=== PATIENT | male | born 1940 | race Caucasian/White ===

== ENCOUNTER 2020-07-20 15:13 | Inpatient (IN) | payer MEDICARE, OTHER ==
[2020-07-20] MEDS ORDERED: DEXAMETHASONE SOD PHOSPHATE 10 MG/ML 1 ML VIAL IV STA (15:40)
[2020-07-20 16:03] LABS: Basophils # (A) 0.1 k/uL (0-0.2); Basophils % (A) 1 %; Eosinophils % (A) 0 %; HCT 42.9 % (39.0-53.0); HGB 14.6 gm/dL (13.0-17.5); Lymphocytes # (A) 0.7 k/uL (1.0-4.8); Lymphocytes % (A) 7 %; MCH 31.6 pg (25.0-35.0); MCHC 34.2 g/dL (31.0-37.0); MCV 92.4 fL (80.0-100.0); Mean Platelet Volume 7.8; Monocytes # (A) 0.6 k/uL (0-1.0); Monocytes % (A) 5 %; Neutrophils # (A) 8.8 k/uL (1.3-7.7); Neutrophils % (A) 86 %; Platelet Count 278 k/uL (150-450); RBC 4.64 m/uL (4.30-5.90); RDW 12.6 % (11.5-15.5); WBC 10.2 k/uL (3.8-10.6)
[2020-07-20 16:09] LABS: VBG PH 7.52 (7.31-7.41)
[2020-07-20 16:11] LABS: Partial Thromboplastin Time 22.7 sec (22.0-30.0); Prothrombin Time 10.4 sec (9.0-12.0)
[2020-07-20 16:12] LABS: Albumin 3.7 g/dL (3.5-5.0); Calcium 8.9 mg/dL (8.4-10.2); Magnesium 2.1 mg/dL (1.6-2.3); Potassium 4.8 mmol/L (3.5-5.1); Total Bilirubin 1.5 mg/dL (0.2-1.3); Total Protein 7.1 g/dL (6.3-8.2)
--- NOTE | 2020-07-20 16:17 | XR ---
EXAMINATION TYPE: XR chest 1V portable DATE OF EXAM: 07/20/2020 COMPARISON: NONE HISTORY: Shortness of breath. TECHNIQUE: Single frontal view of the chest is obtained. FINDINGS: There is moderate bilateral opacities predominantly in the mid to lower lungs. No pleural effusion, or pneumothorax seen. The cardiac silhouette size is mildly enlarged. The osseous struct ures are intact. IMPRESSION: Bilateral infiltrates.
[2020-07-20] MEDS ORDERED: SODIUM CHLORIDE 0.9% 500 ML 500 ML IV ONE (16:26)
[2020-07-20] MEDS ORDERED: ENOXAPARIN 40 MG/0.4 ML SYRINGE SQ STA (16:40)
[2020-07-20] MEDS ORDERED: ASPIRIN 325 MG TAB PO STA (16:41)
[2020-07-20] MEDS ORDERED: HEPARIN SODIUM,PORCINE 5,000 UNIT/ML 1 ML VIAL IV ONE (16:41)
--- NOTE | 2020-07-20 16:56 | ED ---
General Adult HPI - General Chief complaint: Dizziness Stated complaint: Dizziness Time Seen by Provider: 07/20/20 15:31 Source: patient, family, RN notes reviewed, old records reviewed Mode of arrival: wheelchair Limitations: physical limitation - History of Present Illness Initial comments: 80-year-old male presenting with chief complaint of dizziness and lethargy. History is initially obtained from the patient's , he is able to answer questions but somewhat somnolent. He was found to be hypoxic in triage. Apparently for the past 5 days he's had dizziness and lightheadedness, generalized weakness. He had a follow-up visit with his primary care physician and had seen his field interviewer prescribed medicine for vertigo. He has reported some worsening dyspnea over the past 24 hours as well as dry cough. No reported fever. - Related Data Allergies Allergy/AdvReac Type Severity Reaction Status Date / Time No Known Allergies Allergy Verified 07/20/20 15:28 Review of Systems ROS Statement: Those systems with pertinent positive or pertinent negative responses have been documented in the HPI. ROS Other: All systems not noted in ROS Statement are negative. Past Medical History Past Medical History: Coronary Artery Disease (CAD), GERD/Reflux, Hyperlipidemia History of Any Multi-Drug Resistant Organisms: None Reported Past Surgical History: Cholecystectomy, Heart Catheterization With Stent Past Psychological History: No Psychological Hx Reported Smoking Status: Never smoker Past Alcohol Use History: None Reported Past Drug Use History: None Reported General Exam Limitations: physical limitation General appearance: lethargic, in distress Head exam: Present: atraumatic, normocephalic Eye exam: Present: normal appearance, PERRL ENT exam: Present: mucous membranes dry Neck exam: Present: normal inspection. Absent: tenderness, meningismus Respiratory exam: Present: respiratory distress, rales, rhonchi, decreased breath sounds Cardiovascular Exam: Present: regular rate, irregular rhythm GI/Abdominal exam: Present: soft. Absent: distended, tenderness, guarding, rebound Extremities exam: Present: normal capillary refill. Absent: pedal edema, calf tenderness Neurological exam: Present: alert, oriented X3, CN II-XII intact. Absent: motor sensory deficit Psychiatric exam: Present: normal affect, normal mood Skin exam: Present: warm, dry, intact, pallor. Absent: cyanosis, diaphoretic Course Vital Signs 07/20/20 15:20 Temperature 99.0 F Pulse Rate 72 Respiratory 24 Rate Blood Pressure 92/59 O2 Sat by Pulse 74 L Oximetry EKG Findings - EKG Comments: EKG Findings:: EKG: Atrial fibrillation, no ST segment elevation, rate of 87, QRS duration 80, QTC 421 Medical Decision Making - Medical Decision Making Initial presentation, patient is hypoxic, borderline hypotensive. He has a chest x-ray showed bilateral infiltrate. He is in atrial fibrillation without any previous history of atrial fibrillation. He has a normal CBC, mild lactic acidosis of 2.2, creatinine 2.2 with no known baseline. He has elevated troponin 0.28 I suspect this is related to hypoxia rather than acute infarction. He has been started on heparin. I discussed case with Dr. Bebo plasencia for pulmonology, recommends Decadron, Remdesivir. Patient has been admitted to Dr. Mcdowell who is aware of the patient Additional prognostic labs have been ordered these results are pending. Diagnosis: Covid 19, troponin elevation, bilateral pneumonia, hypoxia, acute kidney injury, new-onset A. fib. - Lab Data Result diagrams: 07/20/20 15:46 07/20/20 15:46 Lab Results 07/20/20 07/20/20 07/20/20 Range/Units 15:46 15:46 15:46 WBC 10.2 (3.8-10.6) k/uL RBC 4.64 (4.30-5.90) m/uL Hgb 14.6 (13.0-17.5) gm/dL Hct 42.9 (39.0-53.0) % MCV 92.4 (80.0-100.0) fL MCH 31.6 (25.0-35.0) pg MCHC 34.2 (31.0-37.0) g/dL RDW 12.6 (11.5-15.5) % Plt Count 278 (150-450) k/uL MPV 7.8 Neutrophils % 86 % Lymphocytes % 7 % Monocytes % 5 % Eosinophils % 0 % Basophils % 1 % Neutrophils # 8.8 H (1.3-7.7) k/uL Lymphocytes # 0.7 L (1.0-4.8) k/uL Monocytes # 0.6 (0-1.0) k/uL Eosinophils # 0.0 (0-0.7) k/uL Basophils # 0.1 (0-0.2) k/uL PT 10.4 (9.0-12.0) sec INR 1.0 (<1.2) APTT 22.7 (22.0-30.0) sec VBG pH (7.31-7.41) VBG pCO2 (37-51) mmHg VBG HCO3 (24-28) mmol/L Sodium 138 (137-145) mmol/L Potassium 4.8 (3.5-5.1) mmol/L Chloride 106 (98-107) mmol/L Carbon Dioxide 19 L (22-30) mmol/L Anion Gap 13 mmol/L BUN 60 H (9-20) mg/dL Creatinine 2.23 H (0.66-1.25) mg/dL Est GFR (CKD-EPI)AfAm 31 (>60 ml/min/1.73 sqM) Est GFR (CKD-EPI)NonAf 27 (>60 ml/min/1.73 sqM) Glucose 150 H (74-99) mg/dL Plasma Lactic Acid Cipriano (0.7-2.0) mmol/L Calcium 8.9 (8.4-10.2) mg/dL Magnesium 2.1 (1.6-2.3) mg/dL Total Bilirubin 1.5 H (0.2-1.3) mg/dL AST 77 H (17-59) U/L ALT 50 H (4-49) U/L Alkaline Phosphatase 52 (38-126) U/L Troponin I (0.000-0.034) ng/mL NT-Pro-B Natriuret Pep pg/mL Total Protein 7.1 (6.3-8.2) g/dL Albumin 3.7 (3.5-5.0) g/dL Coronavirus (PCR) (Not Detectd) Influenza Type A RNA (Not Detectd) Influenza Type B (PCR) (Not Detectd) 07/20/20 07/20/20 07/20/20 Range/Units 15:46 15:46 15:46 WBC (3.8-10.6) k/uL RBC (4.30-5.90) m/uL Hgb (13.0-17.5) gm/dL Hct (39.0-53.0) % MCV (80.0-100.0) fL MCH (25.0-35.0) pg MCHC (31.0-37.0) g/dL RDW (11.5-15.5) % Plt Count (150-450) k/uL MPV Neutrophils % % Lymphocytes % % Monocytes % % Eosinophils % % Basophils % % Neutrophils # (1.3-7.7) k/uL Lymphocytes # (1.0-4.8) k/uL Monocytes # (0-1.0) k/uL Eosinophils # (0-0.7) k/uL Basophils # (0-0.2) k/uL PT (9.0-12.0) sec INR (<1.2) APTT (22.0-30.0) sec VBG pH (7.31-7.41) VBG pCO2 (37-51) mmHg VBG HCO3 (24-28) mmol/L Sodium (137-145) mmol/L Potassium (3.5-5.1) mmol/L Chloride (98-107) mmol/L Carbon Dioxide (22-30) mmol/L Anion Gap mmol/L BUN (9-20) mg/dL Creatinine (0.66-1.25) mg/dL Est GFR (CKD-EPI)AfAm (>60 ml/min/1.73 sqM) Est GFR (CKD-EPI)NonAf (>60 ml/min/1.73 sqM) Glucose (74-99) mg/dL Plasma Lactic Acid Cipriano 2.2 H* (0.7-2.0) mmol/L Calcium (8.4-10.2) mg/dL Magnesium (1.6-2.3) mg/dL Total Bilirubin (0.2-1.3) mg/dL AST (17-59) U/L ALT (4-49) U/L Alkaline Phosphatase (38-126) U/L Troponin I 0.128 H* (0.000-0.034) ng/mL NT-Pro-B Natriuret Pep 1770 pg/mL Total Protein (6.3-8.2) g/dL Albumin (3.5-5.0) g/dL Coronavirus (PCR) (Not Detectd) Influenza Type A RNA (Not Detectd) Influenza Type B (PCR) (Not Detectd) 07/20/20 07/20/20 07/20/20 Range/Units 15:46 15:50 15:50 WBC (3.8-10.6) k/uL RBC (4.30-5.90) m/uL Hgb (13.0-17.5) gm/dL Hct (39.0-53.0) % MCV (80.0-100.0) fL MCH (25.0-35.0) pg MCHC (31.0-37.0) g/dL RDW (11.5-15.5) % Plt Count (150-450) k/uL MPV Neutrophils % % Lymphocytes % % Monocytes % % Eosinophils % % Basophils % % Neutrophils # (1.3-7.7) k/uL Lymphocytes # (1.0-4.8) k/uL Monocytes # (0-1.0) k/uL Eosinophils # (0-0.7) k/uL Basophils # (0-0.2) k/uL PT (9.0-12.0) sec INR (<1.2) APTT (22.0-30.0) sec VBG pH 7.52 H (7.31-7.41) VBG pCO2 21 L (37-51) mmHg VBG HCO3 17 L (24-28) mmol/L Sodium (137-145) mmol/L Potassium (3.5-5.1) mmol/L Chloride (98-107) mmol/L Carbon Dioxide (22-30) mmol/L Anion Gap mmol/L BUN (9-20) mg/dL Creatinine (0.66-1.25) mg/dL Est GFR (CKD-EPI)AfAm (>60 ml/min/1.73 sqM) Est GFR (CKD-EPI)NonAf (>60 ml/min/1.73 sqM) Glucose (74-99) mg/dL Plasma Lactic Acid Cipriano (0.7-2.0) mmol/L Calcium (8.4-10.2) mg/dL Magnesium (1.6-2.3) mg/dL Total Bilirubin (0.2-1.3) mg/dL AST (17-59) U/L ALT (4-49) U/L Alkaline Phosphatase (38-126) U/L Troponin I (0.000-0.034) ng/mL NT-Pro-B Natriuret Pep pg/mL Total Protein (6.3-8.2) g/dL Albumin (3.5-5.0) g/dL Coronavirus (PCR) Detected A (Not Detectd) Influenza Type A RNA Not Detected (Not Detectd) Influenza Type B (PCR) Not Detected (Not Detectd) Critical Care Time Critical Care Time: Yes Total Critical Care Time: 35 Disposition Clinical Impression: New onset a-fib, COVID-19, ANGELA (acute kidney injury), Elevated troponin I level Disposition: ADMITTED IP TO THIS [facility] Condition: Serious Is patient prescribed a controlled substance at d/c from ED?: No Referrals: Vangie Cerda MD [Primary Care Provider] - 1-2 days Decision to Admit Reason: Admit from EC Decision Date: 07/20/20 Decision Time: 17:11
[2020-07-20] MEDS: SODIUM CHLORIDE 0.9% 1,000 ML IV SCH (17:00)
[2020-07-20] MEDS ORDERED: NALOXONE 0.4 MG/ML 1 ML VIAL IV PRN (17:02)
[2020-07-20] MEDS: HEPARIN SOD,PORK IN 0.45% NACL 25,000 UNIT in 0.45% NACL 1 250ML.BAG IV SCH (17:07)
[2020-07-20 17:51] LABS: C Reactive Protein 202.3 mg/L (<10.0)
[2020-07-20] MEDS ORDERED: REMDESIVIR 200 MG in SODIUM CHLORIDE 0.9% 250 ML IVPB ONE (18:00)
[2020-07-20] MEDS ORDERED: ATORVASTATIN 10 MG TAB PO SCH (21:15)
--- NOTE | 2020-07-20 21:18 | P.CNPUL ---
History of Present Illness Consult date: 07/20/20 Requesting physician: Virginia Mcdowell Reason for consult: abnormal CXR/CT Chief complaint: Weakness, fatigue, dizziness, altered mental status History of present illness: This is a 80-year-old gentleman with a history of coronary artery disease with previous stent placement, gastroesophageal reflux disease, hyper lipidemia. He presents to the emergency room today with complaints of dizziness, fatigue, weakness. His is finding him quite somnolent. This is been going on for at least 5 days. He had a follow-up with his primary care physician and his display designer who prescribed medication for vertigo. No reported fever. He has had increasing shortness of breath and a dry cough. Chest x-ray reveals evidence of moderate bilateral opacities predominantly in the mid to lower lungs. His presenting oxygen was 74% O2 saturation on room air. Temperature 90.9. He is been placed on 15 L nonrebreather maintaining O2 saturation of 89- 90%. White count 10.2. Hemoglobin 14.6. Lymphocytes 0.7. D-dimer 5.42. Sodium 138. Potassium 4.8. Creatinine 2.23. Lactic acid 2.2. Glucose 150. AST 77, ALT 50. LDH 2236. Troponin 0.128. C-reactive protein 202. ProBNP 1770. Briones virus by PCR positive. He's been initiated on a heparin drip. Resuscitated with 500 ML bolus. Currently on 0.9 normal saline at 130 ML's per hour. Received Decadron. Aspirin. He is seen today in consultation in the emergency room. Currently afebrile. 89% O2 saturation on 15 L nonrebreather. Review of Systems ROS unobtainable: due to mental status Past Medical History Past Medical History: Coronary Artery Disease (CAD), GERD/Reflux, Hyperlipidemia History of Any Multi-Drug Resistant Organisms: None Reported Past Surgical History: Cholecystectomy, Heart Catheterization With Stent Past Psychological History: No Psychological Hx Reported Smoking Status: Never smoker Past Alcohol Use History: None Reported Past Drug Use History: None Reported Medications and Allergies Home Medications Medication Instructions Recorded Confirmed Type Aspirin EC [Ecotrin] 325 mg PO DAILY 07/20/20 07/20/20 History Dorzolamide/Timolol/Pf 1 drop BOTH EYES BID 07/20/20 07/20/20 History [Dorzolamide 2%-Timolol 0.5%] Finasteride [Proscar] 5 mg PO DAILY 07/20/20 07/20/20 History Krill Oil 500 mg PO DAILY 07/20/20 07/20/20 History Labetalol [Trandate] 200 mg PO BID 07/20/20 07/20/20 History Latanoprost [Xalatan 0.005%] 1 drop BOTH EYES HS 07/20/20 07/20/20 History Nitroglycerin Sl Tabs [Nitrostat] 0.4 mg SL Q5M PRN 07/20/20 07/20/20 History Omeprazole 20 mg PO DAILY 07/20/20 07/20/20 History Simvastatin [Zocor] 20 mg PO HS 07/20/20 07/20/20 History Triamterene-Hctz 37.5-25Mg 1 cap PO DAILY 07/20/20 07/20/20 History [Dyazide 37.5-25 Capsule] amLODIPine [Norvasc] 10 mg PO DAILY 07/20/20 07/20/20 History lisinopriL 20 mg PO BID 07/20/20 07/20/20 History Allergies Allergy/AdvReac Type Severity Reaction Status Date / Time No Known Allergies Allergy Verified 07/20/20 17:30 Physical Exam Vitals: Vital Signs Temp Pulse Resp BP Pulse Ox 07/20/20 17:36 95 18 117/83 89 L 07/20/20 17:21 98.9 F 92 22 109/70 90 L 07/20/20 17:02 101 H 24 100/64 88 L 07/20/20 15:20 99.0 F 72 24 92/59 74 L Intake and Output 07/20/20 07/20/20 07/20/20 06:59 14:59 22:59 Other: Weight 145.15 kg GENERAL EXAM: Somnolent, lethargic 80-year-old gentleman, on 15 L high flow nasal cannulas. HEAD: Normocephalic. EYES: Normal reaction of pupils, equal size. NOSE: Clear with pink turbinates. THROAT: No erythema or exudates. NECK: No masses, no JVD. CHEST: No chest wall deformity. LUNGS: Equal air entry with bilateral rhonchi CVS: S1 and S2 normal with no audible murmur, regular rhythm. ABDOMEN: No hepatosplenomegaly, normal bowel sounds, no guarding or rigidity. SPINE: No scoliosis or deformity SKIN: No rashes CENTRAL NERVOUS SYSTEM: Difficult to evaluate brief but nonfocal, tone is normal in all 4 extremities. EXTREMITIES: There is no peripheral edema. No clubbing, no cyanosis. Peripheral pulses are intact. Results - Laboratory Findings CBC and BMP: 07/20/20 15:46 07/20/20 15:46 PT/INR, D-dimer PT 10.4 sec (9.0-12.0) 07/20/20 15:46 INR 1.0 (<1.2) 07/20/20 15:46 D-Dimer 5.42 mg/L FEU (<0.60) H 07/20/20 15:46 Abnormal lab findings: Abnormal Labs 07/20/20 07/20/20 07/20/20 15:46 15:46 15:46 Neutrophils # 8.8 H Lymphocytes # 0.7 L D-Dimer VBG pH VBG pCO2 VBG HCO3 Carbon Dioxide 19 L BUN 60 H Creatinine 2.23 H Glucose 150 H Plasma Lactic Acid Cipriano 2.2 H* Total Bilirubin 1.5 H AST 77 H ALT 50 H Lactate Dehydrogenase Troponin I C-Reactive Protein Coronavirus (PCR) 07/20/20 07/20/20 07/20/20 15:46 15:46 15:46 Neutrophils # Lymphocytes # D-Dimer 5.42 H VBG pH 7.52 H VBG pCO2 21 L VBG HCO3 17 L Carbon Dioxide BUN Creatinine Glucose Plasma Lactic Acid Cipriano Total Bilirubin AST ALT Lactate Dehydrogenase Troponin I 0.128 H* C-Reactive Protein Coronavirus (PCR) 07/20/20 07/20/20 15:46 15:50 Neutrophils # Lymphocytes # D-Dimer VBG pH VBG pCO2 VBG HCO3 Carbon Dioxide BUN Creatinine Glucose Plasma Lactic Acid Cipriano Total Bilirubin AST ALT Lactate Dehydrogenase 2236 H Troponin I C-Reactive Protein 202.3 H Coronavirus (PCR) Detected A - Diagnostic Findings Chest x-ray: image reviewed Assessment and Plan Assessment: 1 Acute CoVID 19 pneumonia. 2 Altered mental status secondary to above 3 Acute hypoxic respiratory failure secondary to above 4 Elevated inflammatory markers secondary to above 5 Elevated troponin 6 Acute renal failure 7 Lactic acidosis 8 History of coronary artery disease with previous stent placement 9 Gastroesophageal reflux disease 10 Hyperlipidemia Plan: The patient was seen and evaluated by Dr. Lagunas Chest x-ray and labs reviewed Continue 15 L flow nasal cannula Initiate Remdesivir Continue Decadron and Lovenox Check pro calcitonin Follow-up troponin levels Continue heparin drip Prognosis remains guarded, if condition deteriorates may need admission to the ICU We will continue to follow and make further recommendations based on his clinical status I, the cosigning physician, performed a history & physical examination of the patient. Lungs sounds with bilateral rhonchi. Maintaining good O2 saturations in the 90s on 15 L high flow nasal cannula. I discussed the assessment and plan of care with my nurse practitioner, Lissette Mosqueda. I attest to the above con sultation as dictated by her. Time with Patient: Greater than 30
[2020-07-20] MEDS: lisinopriL 20 MG TAB PO SCH (21:35)
[2020-07-20] MEDS: dexAMETHasone 2 MG TAB PO SCH (21:35)
[2020-07-20] MEDS: LATANOPROST 0.005% OPHTH DROPS 2.5 ML BTL BOTH EYES SCH (22:02)
[2020-07-20] MEDS: LABETALOL 200 MG TAB PO SCH (22:03)
[2020-07-20] MEDS: HEPARIN SODIUM,PORCINE 5,000 UNIT/ML 1 ML VIAL IV PRN (23:25)
[2020-07-21 00:49] LABS: Ferritin 1596.6 ng/mL (22.0-322.0)
[2020-07-21] MEDS: SODIUM CHLORIDE 0.9% 1,000 ML IV SCH ×4 (00:51→20:46)
[2020-07-21 05:44] LABS: Basophils % (A) 0 %; Eosinophils % (A) 0 %; HGB 13.3 gm/dL (13.0-17.5); Lymphocytes # (A) 0.5 k/uL (1.0-4.8); Lymphocytes % (A) 9 %; MCH 31.2 pg (25.0-35.0); MCHC 33.2 g/dL (31.0-37.0); Mean Platelet Volume 7.9; Monocytes # (A) 0.3 k/uL (0-1.0); Monocytes % (A) 4 %; Neutrophils % (A) 86 %; Platelet Count 263 k/uL (150-450); RBC 4.25 m/uL (4.30-5.90); RDW 12.7 % (11.5-15.5); WBC 5.8 k/uL (3.8-10.6)
[2020-07-21] MEDS: PANTOPRAZOLE 40 MG TABLET PO SCH (06:22)
[2020-07-21] MEDS ORDERED: dexAMETHasone 2 MG TAB PO SCH (09:00)
[2020-07-21] MEDS ORDERED: amLODIPine 10 MG TAB PO SCH (09:00)
[2020-07-21] MEDS ORDERED: FINASTERIDE 5 MG TAB PO SCH (09:00)
[2020-07-21] MEDS ORDERED: TRIAMTERENE-HCTZ 37.5-25MG 1 EACH CAP PO SCH (09:00)
[2020-07-21] MEDS: FAMOTIDINE 20 MG TAB PO SCH (09:15)
[2020-07-21] MEDS: dexAMETHasone 2 MG TAB PO SCH ×3 (09:16→20:45)
[2020-07-21] MEDS: LABETALOL 200 MG TAB PO SCH ×2 (09:16→20:45)
[2020-07-21] MEDS: ZINC SULFATE 220 MG CAP PO SCH (09:16)
[2020-07-21] MEDS: lisinopriL 20 MG TAB PO SCH ×2 (09:16→20:45)
[2020-07-21] MEDS: CHOLECALCIFEROL 1,000 UNIT TAB PO SCH (09:16)
[2020-07-21] MEDS: ASCORBIC ACID 500 MG TAB PO SCH (09:16)
[2020-07-21] MEDS: DORZOLAMIDE-TIMOLOL 2.23%/0.68 10ML BTL BOTH EYES SCH ×2 (09:17→20:46)
[2020-07-21 09:51] LABS: Albumin 3.2 g/dL (3.5-5.0); Calcium 8.3 mg/dL (8.4-10.2); Potassium 4.1 mmol/L (3.5-5.1); Total Bilirubin 0.8 mg/dL (0.2-1.3); Total Protein 6.1 g/dL (6.3-8.2)
--- NOTE | 2020-07-21 11:38 | P.HPIM ---
History of Present Illness H&P Date: 07/21/20 HISTORY OF PRESENT ILLNESS This is a 80-year-old male patient of Dr. Cerda with past medical history of coronary artery disease with previous stent placement, hypertension, hyperlipidemia, gastroesophageal reflux disease. Patient complains of shortness of breath, dry cough, increasing fatigue and weakness and dizziness that of an going on for the past 5 days. was also concerned the patient was more somnolent. 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 Patient has not had any fever. Temperature 90.9, heart rate 72, blood pressure 92/59, pulse ox 74% on room air. Patient was placed on a nonrebreather and that brought his pulse ox up to 90 max at 15 L. WBC 10.2, hemoglobin 14.6, platelet count 278. Lymphopenia at 0.7. D-dimer 5.42. Initial venous blood gas pH 7.52, pCO2 21, bicarb 17. BUN 16 creatinine 2.23, baseline is not known. Blood sugar 150. Initial lactic acid 2.2 with repeat 1.4. Ferritin 1596, total bilirubin 1.5, AST 77, ALT 50, alkaline phosphatase 52, LDH 2236. Troponin 0.128. C-reactive protein 202.3. ProBNP 1770. Pro-calcitonin 0.25. Coronavirus detected. Chest x-ray reveals bilateral infiltrate. EKG atrial fibrillation at a heart rate of 87. Patient was admitted to the cardiac stepdown unit and consult with primary medicine was placed and patient started on Remdesivir, Lovenox, dexamethasone and vitamins. Subsequently consult added for cardiology regarding atrial fibrillation and elevated troponins. REVIEW OF SYSTEMS Constitutional: No fever, no chills, no night sweats. No weight change. Reports reports weakness, fatigue reports lethargy. Reports daytime sleepiness. EENT: No headache. No blurred vision or double vision, no loss of vision. Reports dizziness. No nasal drainage or congestion. No epistaxis. No sore throat. Lungs: Reports shortness of breath, Reportscough, Reports sputum production. No wheezing. Cardiovascular: No chest pain, no lower extremity edema. No palpitations. No paroxysmal nocturnal dyspnea. No orthopnea. Reports lightheadedness or dizziness. No syncopal episodes. Abdominal: No abdominal pain. No nausea, vomiting. No diarrhea. No constipation. No bloody or tarry stools.. No loss of appetite. Genitourinary: No dysuria, increased frequency, urgency. No urinary retention. Musculoskeletal: No myalgias. Reports muscle weakness, no gait dysfunction, no frequent falls. No back pain. No neck pain. Integumentary: No wounds, no lesions. No rash or pruritus. Neurologic: No aphasia. No facial droop. Reported change in mentation. No head injury. No headache. No paralysis. No paresthesia. Psychiatric: No depression. No anxiety. Endocrine: No abnormal blood sugars. PHYSICAL EXAMINATION Gen: This is a 80-year-old male. Patient is resting in bed and appears to be comfortable currently on nonrebreather. HEENT: Head is atraumatic, normocephalic. Pupils equal, round. Sclerae is anicteric. NECK: Supple. No JVD. No lymphadenopathy. No thyromegaly. LUNGS: Bilateral lower lobe rhonchi. No intercostal retractions. HEART: Regular rate and rhythm. No murmur. ABDOMEN: Soft. Bowel sounds are present. No masses. No tenderness. EXTREMITIES: No pedal edema. No calf tenderness. NEUROLOGICAL: Patient is awake, alert and oriented x3. Cranial nerves 2 through 12 are grossly intact. Patient is able to provide the approximate date, day of the week and location. Mental status seems to be improving. ASSESSMENT AND PLAN 1. Acute hypoxic respiratory failure secondary to Covid 19 pneumonia. Continue oxygen therapy, currently at 15 L nonrebreather. Patient encouraged to lay prone. Patient will be monitored closely and may require home oxygen at the time of discharge. 2. Metabolic encephalopathy secondary to Covid 19 pneumonia, improving. Continue treatment for Covid 19 pneumonia. 3. Acute COVID-19 pneumonia. Continue Remdesivir date 10/04, dexamethasone 6 mg 3 times daily, heparin drip, vitamin supplements: Vitamin D, vitamin C, zinc, prone positioning. 4. New onset atrial fibrillation, rate controlled. Patient is currently on labetalol 200 mg twice daily, cardiology consult, heparin drip. 5. Elevated troponin most likely secondary to Covid 19, rule out non-ST elevated myocardial infarction. Cardiology consult. 6. Acute kidney injury. Baseline renal function is unknown. Continue fluids and recheck creatinine in the morning. 7. Lactic acidosis secondary to Covid 19, resolved. 8. History of coronary artery disease with previous stent in 2010. 9. Gastroesophageal reflux disease and GI prophylaxis. Pepcid. 10. Hyperlipidemia. Continue atorvastatin 10 mg at bedtime 11. Hypertension. Continue labetalol 200 mg twice daily, lisinopril 20 mg twice daily, Dyazide 1 daily. 12. Benign prostatic hypertrophy. Continue Proscar 5 mg daily. 13. DVT prophylaxis. Heparin drip. Patient will be admitted to the hospital for a minimum of 2 night stay. DISCHARGE PLAN To be determined. Impression and plan of care have been directed as dictated by the signing physician. Nichelle Dsouza nurse practitioner acting as scribe for signing ph ysician. Past Medical History Past Medical History: Coronary Artery Disease (CAD), GERD/Reflux, Hyperlipidemia History of Any Multi-Drug Resistant Organisms: None Reported Past Surgical History: Cholecystectomy, Heart Catheterization With Stent Date of Last Stent Placement:: 2011 Past Psychological History: No Psychological Hx Reported Smoking Status: Never smoker Past Alcohol Use History: None Reported Past Drug Use History: None Reported Medications and Allergies Home Medications Medication Instructions Recorded Confirmed Type Aspirin EC [Ecotrin] 325 mg PO DAILY 07/20/20 07/20/20 History Dorzolamide/Timolol/Pf 1 drop BOTH EYES BID 07/20/20 07/20/20 History [Dorzolamide 2%-Timolol 0.5%] Finasteride [Proscar] 5 mg PO DAILY 07/20/20 07/20/20 History Krill Oil 500 mg PO DAILY 07/20/20 07/20/20 History Labetalol [Trandate] 200 mg PO BID 07/20/20 07/20/20 History Latanoprost [Xalatan 0.005%] 1 drop BOTH EYES HS 07/20/20 07/20/20 History Nitroglycerin Sl Tabs [Nitrostat] 0.4 mg SL Q5M PRN 07/20/20 07/20/20 History Omeprazole 20 mg PO DAILY 07/20/20 07/20/20 History Simvastatin [Zocor] 20 mg PO HS 07/20/20 07/20/20 History Triamterene-Hctz 37.5-25Mg 1 cap PO DAILY 07/20/20 07/20/20 History [Dyazide 37.5-25 Capsule] amLODIPine [Norvasc] 10 mg PO DAILY 07/20/20 07/20/20 History lisinopriL 20 mg PO BID 07/20/20 07/20/20 History Allergies Allergy/AdvReac Type Severity Reaction Status Date / Time No Known Allergies Allergy Verified 07/20/20 17:30 Physical Exam Vitals: Vital Signs Temp Pulse Pulse Resp BP BP Pulse Ox 07/21/20 04:00 98.3 F 98 24 115/59 87 L 07/21/20 00:00 98.2 F 96 22 88/53 90 L 07/20/20 22:30 22 91 L 07/20/20 20:16 97.6 F 98 24 86 L 07/20/20 20:00 97.7 F 98 24 107/57 86 L 07/20/20 19:54 94 H 07/20/20 17:36 95 18 117/83 89 L 07/20/20 17:21 98.9 F 92 22 109/70 90 L 07/20/20 17:02 101 H 24 100/64 88 L 07/20/20 15:20 99.0 F 72 24 92/59 74 L Intake and Output 07/20/20 07/21/20 07/21/20 22:59 06:59 14:59 Intake Total 900 605.316 120 Output Total 450 Balance 900 155.316 120 Intake: Intake, IV Titration 155.316 Amount Heparin Sod,Pork in 0.45% 155.316 NaCl 25,000 unit In 0.45 % NaCl 1 250ml.bag @ 6. 889 UNITS/KG/HR 9.999 mls /hr IV .Q24H [facility] Rx#: [id number] Oral 900 450 120 Output: Urine 450 Other: Voiding Method Urinal Urinal Weight 145.15 kg 92 kg Results CBC & Chem 7: 07/21/20 05:25 07/21/20 05:25 Labs: Abnormal Lab Results - Last 24 Hours (Table) 07/20/20 07/20/20 07/20/20 Range/Units 15:46 15:46 15:46 RBC (4.30-5.90) m/uL Neutrophils # 8.8 H (1.3-7.7) k/uL Lymphocytes # 0.7 L (1.0-4.8) k/uL APTT (22.0-30.0) sec D-Dimer (<0.60) mg/L FEU VBG pH (7.31-7.41) VBG pCO2 (37-51) mmHg VBG HCO3 (24-28) mmol/L Carbon Dioxide 19 L (22-30) mmol/L BUN 60 H (9-20) mg/dL Creatinine 2.23 H (0.66-1.25) mg/dL Glucose 150 H (74-99) mg/dL Plasma Lactic Acid Cipriano 2.2 H* (0.7-2.0) mmol/L Ferritin (22.0-322.0) ng/mL Total Bilirubin 1.5 H (0.2-1.3) mg/dL AST 77 H (17-59) U/L ALT 50 H (4-49) U/L Lactate Dehydrogenase (313-618) U/L Troponin I (0.000-0.034) ng/mL C-Reactive Protein (<10.0) mg/L Procalcitonin (0.02-0.09) ng/mL Coronavirus (PCR) (Not Detectd) 07/20/20 07/20/20 07/20/20 Range/Units 15:46 15:46 15:46 RBC (4.30-5.90) m/uL Neutrophils # (1.3-7.7) k/uL Lymphocytes # (1.0-4.8) k/uL APTT (22.0-30.0) sec D-Dimer 5.42 H (<0.60) mg/L FEU VBG pH 7.52 H (7.31-7.41) VBG pCO2 21 L (37-51) mmHg VBG HCO3 17 L (24-28) mmol/L Carbon Dioxide (22-30) mmol/L BUN (9-20) mg/dL Creatinine (0.66-1.25) mg/dL Glucose (74-99) mg/dL Plasma Lactic Acid Cipriano (0.7-2.0) mmol/L Ferritin (22.0-322.0) ng/mL Total Bilirubin (0.2-1.3) mg/dL AST (17-59) U/L ALT (4-49) U/L Lactate Dehydrogenase (313-618) U/L Troponin I 0.128 H* (0.000-0.034) ng/mL C-Reactive Protein (<10.0) mg/L Procalcitonin (0.02-0.09) ng/mL Coronavirus (PCR) (Not Detectd) 07/20/20 07/20/20 07/20/20 Range/Units 15:46 15:50 18:43 RBC (4.30-5.90) m/uL Neutrophils # (1.3-7.7) k/uL Lymphocytes # (1.0-4.8) k/uL APTT (22.0-30.0) sec D-Dimer (<0.60) mg/L FEU VBG pH (7.31-7.41) VBG pCO2 (37-51) mmHg VBG HCO3 (24-28) mmol/L Carbon Dioxide (22-30) mmol/L BUN (9-20) mg/dL Creatinine (0.66-1.25) mg/dL Glucose (74-99) mg/dL Plasma Lactic Acid Cipriano (0.7-2.0) mmol/L Ferritin 1596.6 H (22.0-322.0) ng/mL Total Bilirubin (0.2-1.3) mg/dL AST (17-59) U/L ALT (4-49) U/L Lactate Dehydrogenase 2236 H (313-618) U/L Troponin I (0.000-0.034) ng/mL C-Reactive Protein 202.3 H (<10.0) mg/L Procalcitonin 0.25 H (0.02-0.09) ng/mL Coronavirus (PCR) Detected A (Not Detectd) 07/20/20 07/21/20 07/21/20 Range/Units 22:43 05:25 05:25 RBC 4.25 L (4.30-5.90) m/uL Neutrophils # (1.3-7.7) k/uL Lymphocytes # 0.5 L (1.0-4.8) k/uL APTT 38.7 H 65.5 H (22.0-30.0) sec D-Dimer (<0.60) mg/L FEU VBG pH (7.31-7.41) VBG pCO2 (37-51) mmHg VBG HCO3 (24-28) mmol/L Carbon Dioxide (22-30) mmol/L BUN (9-20) mg/dL Creatinine (0.66-1.25) mg/dL Glucose (74-99) mg/dL Plasma Lactic Acid Cipriano (0.7-2.0) mmol/L Ferritin (22.0-322.0) ng/mL Total Bilirubin (0.2-1.3) mg/dL AST (17-59) U/L ALT (4-49) U/L Lactate Dehydrogenase (313-618) U/L Troponin I (0.000-0.034) ng/mL C-Reactive Protein (<10.0) mg/L Procalcitonin (0.02-0.09) ng/mL Coronavirus (PCR) (Not Detectd)
--- NOTE | 2020-07-21 11:44 | P.CRDCN ---
History of Present Illness History of present illness: HISTORY OF PRESENTING ILLNESS This is a pleasant 80-year-old male past medical history significant for coronary artery disease status post PCI to the RCA in 2010, hypertension and dyslipidemia. He follows in the office with Dr. Dr. Oropeza. We have been asked to see in consultation for atrial fibrillation. He presented to the hospital with symptoms of increased weakness and feeling lightheaded. He has been diagnosed with acute Covid 19 infection. EKG on arrival revealed atrial fibrillation with controlled ventricular rate. This appears to be new onset for the patient. He denies symptoms of chest pain or palpitations. He says he does feel short of breath. Chest x-ray reveals bilateral infiltrates. Laboratory data reviewed, CBC unremarkable, d-dimer 5.42, venous pH 7.52, venous pCO2 21, venous bicarb 17, sodium 141, potassium 4.1, creatinine 2.03, lactic acid on admission 2. 2 repeat after hydration 1.4, troponin 0.128 and pro-calcitonin 0.25. Current daily cardiac medications include labetalol 200 mg twice a day, aspirin 325 mg daily, simvastatin 20 mg at bedtime, Dyazide 37.5/25 mg daily, amlodipine 10 mg daily and lisinopril 20 mg twice a day. Most recent echocardiogram obtained in the office December 2019 revealed preserved LV systolic function ejection fraction 55% and normal diastolic function with mild mitral regurgitation noted. REVIEW OF SYSTEMS At the time of my exam: CONSTITUTIONAL: Denies fever or chills. CARDIOVASCULAR: Complains of shortness of breath. Denies chest pain, orthopnea, PND or palpitations. RESPIRATORY: Denies cough. GASTROINTESTINAL: Denies abdominal pain, diarrhea, constipation, nausea or vomiting. MUSCULOSKELETAL: Denies myalgias. NEUROLOGIC: Denies numbness, tingling or weakness. ENDOCRINE: Denies fatigue, weight change, polydipsia or polyurina. GENITOURINARY: Denies burning, hematuria or urgency with micturation. HEMATOLOGIC: Denies history of anemia or bleeding. PHYSICAL EXAMINATION Blood pressure 115/59 heart rate 98 afebrile and pulse ox 87% on a nonrebreather CONSTITUTIONAL: No apparent distress. HEENT: Head is normocephalic. Pupils are equal, round. Sclerae anicteric. Mucous membranes of the mouth are moist. No JVD. No carotid bruit. CHEST EXAMINATION: Scattered rhonchi, no rales or wheezes. No chest wall tenderness is noted on palpation or with deep breathing. HEART EXAMINATION: Irregular rate and rhythm. S1, S2 heard. No murmurs, gallops or rub. ABDOMEN: Soft, nontender. Positive bowel sounds. EXTREMITIES: 2+ peripheral pulses, no lower extremity edema and no calf tenderness. NEUROLOGIC EXAMINATION: Patient is awake, alert and oriented x3. ASSESSMENT New-onset paroxysmal atrial fibrillation with controlled ventricular rate. Covid 19 Elevated troponin secondary to covid 19 and hyoxia causing a supply and demand mismatch. Coronary artery disease status post PCI of the RCA in 2010 Hypertension with hypotension since admission Dyslipidemia PLAN The patient continues to be in A. fib at this time with controlled ventricular rate maintained on labetalol. Heparin infusion was initiated on admission. We will continue this until tomorrow and then consider oral anticoagulation. Decrease aspirin to 81 mg daily. Increase atorvastatin to 40 mg daily. Discontinue amlodipine and dyazide for hypotension. Hold lisinopril for systolic blood pressure less than 110. Repeat 2D echocardiogram and doppler study to assess cardiac structure and function. Further recommendations to follow based on clinical course. Thank you kindly for this consultation. Nurse Practitioner note has been reviewed, I agree with a documented findings and plan of care. Patient was seen and examined. Past Medical History Past Medical History: Coronary Artery Disease (CAD), GERD/Reflux, Hyperlipidemia History of Any Multi-Drug Resistant Organisms: None Reported Past Surgical History: Cholecystectomy, Heart Catheterization With Stent Date of Last Stent Placement:: 2011 Past Psychological History: No Psychological Hx Reported Smoking Status: Never smoker Past Alcohol Use History: None Reported Past Drug Use History: None Reported Medications and Allergies Home Medications Medication Instructions Recorded Confirmed Type Aspirin EC [Ecotrin] 325 mg PO DAILY 07/20/20 07/20/20 History Dorzolamide/Timolol/Pf 1 drop BOTH EYES BID 07/20/20 07/20/20 History [Dorzolamide 2%-Timolol 0.5%] Finasteride [Proscar] 5 mg PO DAILY 07/20/20 07/20/20 History Krill Oil 500 mg PO DAILY 07/20/20 07/20/20 History Labetalol [Trandate] 200 mg PO BID 07/20/20 07/20/20 History Latanoprost [Xalatan 0.005%] 1 drop BOTH EYES HS 07/20/20 07/20/20 History Nitroglycerin Sl Tabs [Nitrostat] 0.4 mg SL Q5M PRN 07/20/20 07/20/20 History Omeprazole 20 mg PO DAILY 07/20/20 07/20/20 History Simvastatin [Zocor] 20 mg PO HS 07/20/20 07/20/20 History Triamterene-Hctz 37.5-25Mg 1 cap PO DAILY 07/20/20 07/20/20 History [Dyazide 37.5-25 Capsule] amLODIPine [Norvasc] 10 mg PO DAILY 07/20/20 07/20/20 History lisinopriL 20 mg PO BID 07/20/20 07/20/20 History Allergies Allergy/AdvReac Type Severity Reaction Status Date / Time No Known Allergies Allergy Verified 07/20/20 17:30 Physical Exam Vitals: Vital Signs Temp Pulse Pulse Resp BP BP Pulse Ox 07/21/20 04:00 98.3 F 98 24 115/59 87 L 07/21/20 00:00 98.2 F 96 22 88/53 90 L 07/20/20 22:30 22 91 L 07/20/20 20:16 97.6 F 98 24 86 L 07/20/20 20:00 97.7 F 98 24 107/57 86 L 07/20/20 19:54 94 H 07/20/20 17:36 95 18 117/83 89 L 07/20/20 17:21 98.9 F 92 22 109/70 90 L 07/20/20 17:02 101 H 24 100/64 88 L 07/20/20 15:20 99.0 F 72 24 92/59 74 L Intake and Output 07/20/20 07/21/20 07/21/20 22:59 06:59 14:59 Intake Total 900 605.316 120 Output Total 450 Balance 900 155.316 120 Intake: Intake, IV Titration 155.316 Amount Heparin Sod,Pork in 0.45% 155.316 NaCl 25,000 unit In 0.45 % NaCl 1 250ml.bag @ 6. 889 UNITS/KG/HR 9.999 mls /hr IV .Q24H [facility] Rx#: [id number] Oral 900 450 120 Output: Urine 450 Other: Voiding Method Urinal Urinal Weight 145.15 kg 92 kg Results 07/21/20 05:25 07/21/20 05:25 Cardiac Enzymes 07/20/20 07/20/20 07/20/20 Range/Units 15:46 15:46 15:46 AST 77 H (17-59) U/L Lactate Dehydrogenase 2236 H (313-618) U/L Troponin I 0.128 H* (0.000-0.034) ng/mL 07/21/20 Range/Units 05:25 AST 60 H (17-59) U/L Lactate Dehydrogenase (313-618) U/L Troponin I (0.000-0.034) ng/mL Coagulation 07/20/20 07/20/20 07/21/20 Range/Units 15:46 22:43 05:25 PT 10.4 (9.0-12.0) sec APTT 22.7 38.7 H 65.5 H (22.0-30.0) sec CBC 07/20/20 07/21/20 Range/Units 15:46 05:25 WBC 10.2 5.8 (3.8-10.6) k/uL RBC 4.64 4.25 L (4.30-5.90) m/uL Hgb 14.6 13.3 (13.0-17.5) gm/dL Hct 42.9 40.0 (39.0-53.0) % Plt Count 278 263 (150-450) k/uL Comprehensive Metabolic Panel 07/20/20 07/21/20 Range/Units 15:46 05:25 Sodium 138 141 (137-145) mmol/L Potassium 4.8 4.1 (3.5-5.1) mmol/L Chloride 106 108 H (98-107) mmol/L Carbon Dioxide 19 L 20 L (22-30) mmol/L BUN 60 H 65 H (9-20) mg/dL Creatinine 2.23 H 2.03 H (0.66-1.25) mg/dL Glucose 150 H 147 H (74-99) mg/dL Calcium 8.9 8.3 L (8.4-10.2) mg/dL AST 77 H 60 H (17-59) U/L ALT 50 H 42 (4-49) U/L Alkaline Phosphatase 52 59 (38-126) U/L Total Protein 7.1 6.1 L (6.3-8.2) g/dL Albumin 3.7 3.2 L (3.5-5.0) g/dL Current Medications Generic Name Dose Route Start Last Admin Trade Name Dwightq PRN Reason Stop Dose Admin Acetaminophen 650 mg 07/20/20 17:02 Acetaminophen Tab 325 Mg Tab PO Q6HR PRN Mild Pain or Fever > 100.5 Ascorbic Acid 500 mg 07/21/20 09:00 07/21/20 09:16 Ascorbic Acid 500 Mg Tab PO 500 mg DAILY [facility] Administration Atorvastatin Calcium 10 mg 07/20/20 21:15 07/20/20 21:35 Atorvastatin 10 Mg Tab PO 10 mg HS [facility] Administration Cholecalciferol 1,000 unit 07/21/20 09:00 07/21/20 09:16 Cholecalciferol 1,000 Unit Tab PO 1,000 unit DAILY [facility] Administration Dexamethasone 6 mg 07/20/20 22:00 07/21/20 09:16 Dexamethasone 2 Mg Tab PO 6 mg TID [facility] Administration Dorzolamide/Timolol 1 drops 07/21/20 09:00 07/21/20 09:17 Dorzolamide-Timolol 2.23%/0.68 10ml Btl BOTH EYES 1 drops BID [facility] Administration Famotidine 20 mg 07/21/20 09:00 07/21/20 09:15 Famotidine 20 Mg Tab PO 20 mg DAILY [facility] Administration Finasteride 5 mg 07/21/20 09:00 07/21/20 09:15 Finasteride 5 Mg Tab PO 5 mg DAILY [facility] Administration Heparin Sodium (Porcine) 0 unit 07/20/20 16:41 07/20/20 23:25 Heparin Sodium,Porcine 5,000 Unit/Ml 1 Ml Vial IV 3,500 unit PER PROTOCOL PRN Administration Low PTT Protocol Heparin Sodium/Sodium Chloride 250 mls @ 9.999 mls/hr 07/20/20 16:45 07/21/20 06:35 25,000 unit/ Sodium Chloride IV 8.88 units/kg/hr .Q24H [facility] 12.889 mls/hr Titration Protocol 6.889 UNITS/KG/HR Sodium Chloride 1,000 mls @ 130 mls/hr 07/20/20 16:45 07/21/20 09:14 Saline 0.9% IV 130 mls/hr .Q7H42M [facility] Administration Remdesivir 100 mg/ Sodium 250 mls @ 250 mls/hr 07/21/20 18:00 Chloride IVPB 07/24/20 18:59 DAILY@1800 [facility] Labetalol HCl 200 mg 07/20/20 21:15 07/21/20 09:16 Labetalol 200 Mg Tab PO 200 mg BID [facility] Administration Latanoprost 1 drops 07/20/20 21:15 07/20/20 22:02 Latanoprost 0.005% Ophth Drops 2.5 Ml Btl BOTH EYES 1 drops HS [facility] Administration Lisinopril 20 mg 07/20/20 21:15 07/21/20 09:16 Lisinopril 20 Mg Tab PO 20 mg BID [facility] Administration Naloxone HCl 0.2 mg 07/20/20 17:02 Naloxone 0.4 Mg/Ml 1 Ml Vial IV Q2M PRN Opioid Reversal Pantoprazole Sodium 40 mg 07/21/20 07:30 07/21/20 06:22 Pantoprazole 40 Mg Tablet PO 40 mg DAILY@0730 [facility] Administration Triamterene/HCTZ 1 each 07/21/20 09:00 07/21/20 09:15 Triamterene-Hctz 37.5-25mg 1 Each Cap PO 1 each DAILY [facility] Administration Zinc Sulfate 220 mg 07/21/20 09:00 07/21/20 09:16 Zinc Sulfate 220 Mg Cap PO 220 mg DAILY [facility] Administration Intake and Output 07/20/20 07/21/20 07/21/20 22:59 06:59 14:59 Intake Total 900 605.316 120 Output Total 450 Balance 900 155.316 120 Intake: Intake, IV Titration 155.316 Amount Heparin Sod,Pork in 0.45% 155.316 NaCl 25,000 unit In 0.45 % NaCl 1 250ml.bag @ 6. 889 UNITS/KG/HR 9.999 mls /hr IV .Q24H [facility] Rx#: [id number] Oral 900 450 120 Output: Urine 450 Other: Voiding Method Urinal Urinal Weight 145.15 kg 92 kg 07/21/20 05:25 07/21/20 05:25
--- NOTE | 2020-07-21 14:10 | P.PN ---
Subjective Progress Note Date: 07/21/20 Principal diagnosis: Fatigue, weakness, altered mental status This is a 80-year-old gentleman with a history of coronary artery disease with previous stent placement, gastroesophageal reflux disease, hyper lipidemia. He presents to the emergency room today with complaints of dizziness, fatigue, weakness. His is finding him quite somnolent. This is been going on for at least 5 days. He had a follow-up with his primary care physician and his food assembler who prescribed medication for vertigo. No reported fever. He has had increasing shortness of breath and a dry cough. Chest x-ray reveals evidence of moderate bilateral opacities predominantly in the mid to lower lungs. His presenting oxygen was 74% O2 saturation on room air. Temperature 90.9. He is been placed on 15 L nonrebreather maintaining O2 saturation of 89- 90%. White count 10.2. Hemoglobin 14.6. Lymphocytes 0.7. D-dimer 5.42. Sodium 138. Potassium 4.8. Creatinine 2.23. Lactic acid 2.2. Glucose 150. AST 77, ALT 50. LDH 2236. Troponin 0.128. C-reactive protein 202. ProBNP 1770. Briones virus by PCR positive. He's been initiated on a heparin drip. Resuscitated with 500 ML bolus. Currently on 0.9 normal saline at 130 ML's per hour. Received Decadron. Aspirin. He is seen today in consultation in the emergency room. Currently afebrile. 89% O2 saturation on 15 L nonrebreather. The patient seen today 07/21/2020 in follow-up on the selective care unit. He is currently awake and alert resting fairly comfortably in bed. He remains on 100% nonrebreather mask. He did have issues with atrial fibrillation which was new for the patient. He is currently on a heparin drip. He is also on day 2 of Remdesivir for his CoVID Pneumonia. White count 5.8. Hemoglobin 13.3. Ly mphocytes 0.5. Sodium 141. Potassium 4.1. Creatinine 2.03. He remains on dexamethasone, vitamin C, vitamin D, Pepcid, zinc. 0.9 normal saline at 130 ML's per hour. Echocardiogram pending. Objective - Vital Signs Vital signs: Vital Signs Temp 98.3 F 07/21/20 04:00 Pulse 98 07/21/20 04:00 Resp 24 11/22/20 04:00 BP 115/59 07/21/20 04:00 Pulse Ox 87 L 07/21/20 04:00 Intake & Output 07/20/20 07/21/20 07/21/20 18:59 06:59 18:59 Intake Total 1505.316 660 Output Total 450 600 Balance 1055.316 60 Weight 145.15 kg 92 kg Intake: Intake, IV Titration 155.316 Amount Heparin Sod,Pork in 0.45% 155.316 NaCl 25,000 unit In 0.45 % NaCl 1 250ml.bag @ 6. 889 UNITS/KG/HR 9.999 mls /hr IV .Q24H [facility] Rx#: [id number] Oral 1350 660 Output: Urine 450 600 Other: Voiding Method Urinal - Exam GENERAL EXAM: Somnolent, lethargic 80-year-old gentleman, on 100% nonrebreather mask. HEAD: Normocephalic. EYES: Normal reaction of pupils, equal size. NOSE: Clear with pink turbinates. THROAT: No erythema or exudates. NECK: No masses, no JVD. CHEST: No chest wall deformity. LUNGS: Equal air entry with bilateral rhonchi CVS: S1 and S2 normal with no audible murmur, irregular rhythm. ABDOMEN: No hepatosplenomegaly, normal bowel sounds, no guarding or rigidity. SPINE: No scoliosis or deformity SKIN: No rashes CENTRAL NERVOUS SYSTEM: Difficult to evaluate brief but nonfocal, tone is normal in all 4 extremities. EXTREMITIES: There is no peripheral edema. No clubbing, no cyanosis. Peripheral pulses are intact. - Labs CBC & Chem 7: 07/21/20 05:25 07/21/20 05:25 Labs: Abnormal Lab Results - Last 24 Hours (Table) 07/20/20 07/20/20 07/20/20 Range/Units 15:46 15:46 15:46 RBC (4.30-5.90) m/uL Neutrophils # 8.8 H (1.3-7.7) k/uL Lymphocytes # 0.7 L (1.0-4.8) k/uL APTT (22.0-30.0) sec D-Dimer (<0.60) mg/L FEU VBG pH (7.31-7.41) VBG pCO2 (37-51) mmHg VBG HCO3 (24-28) mmol/L Chloride (98-107) mmol/L Carbon Dioxide 19 L (22-30) mmol/L BUN 60 H (9-20) mg/dL Creatinine 2.23 H (0.66-1.25) mg/dL Glucose 150 H (74-99) mg/dL Plasma Lactic Acid Cipriano 2.2 H* (0.7-2.0) mmol/L Calcium (8.4-10.2) mg/dL Ferritin (22.0-322.0) ng/mL Total Bilirubin 1.5 H (0.2-1.3) mg/dL AST 77 H (17-59) U/L ALT 50 H (4-49) U/L Lactate Dehydrogenase (313-618) U/L Troponin I (0.000-0.034) ng/mL C-Reactive Protein (<10.0) mg/L Total Protein (6.3-8.2) g/dL Albumin (3.5-5.0) g/dL Procalcitonin (0.02-0.09) ng/mL Coronavirus (PCR) (Not Detectd) 07/20/20 07/20/20 07/20/20 Range/Units 15:46 15:46 15:46 RBC (4.30-5.90) m/uL Neutrophils # (1.3-7.7) k/uL Lymphocytes # (1.0-4.8) k/uL APTT (22.0-30.0) sec D-Dimer 5.42 H (<0.60) mg/L FEU VBG pH 7.52 H (7.31-7.41) VBG pCO2 21 L (37-51) mmHg VBG HCO3 17 L (24-28) mmol/L Chloride (98-107) mmol/L Carbon Dioxide (22-30) mmol/L BUN (9-20) mg/dL Creatinine (0.66-1.25) mg/dL Glucose (74-99) mg/dL Plasma Lactic Acid Cipriano (0.7-2.0) mmol/L Calcium (8.4-10.2) mg/dL Ferritin (22.0-322.0) ng/mL Total Bilirubin (0.2-1.3) mg/dL AST (17-59) U/L ALT (4-49) U/L Lactate Dehydrogenase (313-618) U/L Troponin I 0.128 H* (0.000-0.034) ng/mL C-Reactive Protein (<10.0) mg/L Total Protein (6.3-8.2) g/dL Albumin (3.5-5.0) g/dL Procalcitonin (0.02-0.09) ng/mL Coronavirus (PCR) (Not Detectd) 07/20/20 07/20/20 07/20/20 Range/Units 15:46 15:50 18:43 RBC (4.30-5.90) m/uL Neutrophils # (1.3-7.7) k/uL Lymphocytes # (1.0-4.8) k/uL APTT (22.0-30.0) sec D-Dimer (<0.60) mg/L FEU VBG pH (7.31-7.41) VBG pCO2 (37-51) mmHg VBG HCO3 (24-28) mmol/L Chloride (98-107) mmol/L Carbon Dioxide (22-30) mmol/L BUN (9-20) mg/dL Creatinine (0.66-1.25) mg/dL Glucose (74-99) mg/dL Plasma Lactic Acid Cipriano (0.7-2.0) mmol/L Calcium (8.4-10.2) mg/dL Ferritin 1596.6 H (22.0-322.0) ng/mL Total Bilirubin (0.2-1.3) mg/dL AST (17-59) U/L ALT (4-49) U/L Lactate Dehydrogenase 2236 H (313-618) U/L Troponin I (0.000-0.034) ng/mL C-Reactive Protein 202.3 H (<10.0) mg/L Total Protein (6.3-8.2) g/dL Albumin (3.5-5.0) g/dL Procalcitonin 0.25 H (0.02-0.09) ng/mL Coronavirus (PCR) Detected A (Not Detectd) 07/20/20 07/21/20 07/21/20 Range/Units 22:43 05:25 05:25 RBC 4.25 L (4.30-5.90) m/uL Neutrophils # (1.3-7.7) k/uL Lymphocytes # 0.5 L (1.0-4.8) k/uL APTT 38.7 H 65.5 H (22.0-30.0) sec D-Dimer (<0.60) mg/L FEU VBG pH (7.31-7.41) VBG pCO2 (37-51) mmHg VBG HCO3 (24-28) mmol/L Chloride (98-107) mmol/L Carbon Dioxide (22-30) mmol/L BUN (9-20) mg/dL Creatinine (0.66-1.25) mg/dL Glucose (74-99) mg/dL Plasma Lactic Acid Cipriano (0.7-2.0) mmol/L Calcium (8.4-10.2) mg/dL Ferritin (22.0-322.0) ng/mL Total Bilirubin (0.2-1.3) mg/dL AST (17-59) U/L ALT (4-49) U/L Lactate Dehydrogenase (313-618) U/L Troponin I (0.000-0.034) ng/mL C-Reactive Protein (<10.0) mg/L Total Protein (6.3-8.2) g/dL Albumin (3.5-5.0) g/dL Procalcitonin (0.02-0.09) ng/mL Coronavirus (PCR) (Not Detectd) 07/21/20 Range/Units 05:25 RBC (4.30-5.90) m/uL Neutrophils # (1.3-7.7) k/uL Lymphocytes # (1.0-4.8) k/uL APTT (22.0-30.0) sec D-Dimer (<0.60) mg/L FEU VBG pH (7.31-7.41) VBG pCO2 (37-51) mmHg VBG HCO3 (24-28) mmol/L Chloride 108 H (98-107) mmol/L Carbon Dioxide 20 L (22-30) mmol/L BUN 65 H (9-20) mg/dL Creatinine 2.03 H (0.66-1.25) mg/dL Glucose 147 H (74-99) mg/dL Plasma Lactic Acid Cipriano (0.7-2.0) mmol/L Calcium 8.3 L (8.4-10.2) mg/dL Ferritin (22.0-322.0) ng/mL Total Bilirubin (0.2-1.3) mg/dL AST 60 H (17-59) U/L ALT (4-49) U/L Lactate Dehydrogenase (313-618) U/L Troponin I (0.000-0.034) ng/mL C-Reactive Protein (<10.0) mg/L Total Protein 6.1 L (6.3-8.2) g/dL Albumin 3.2 L (3.5-5.0) g/dL Procalcitonin (0.02-0.09) ng/mL Coronavirus (PCR) (Not Detectd) Assessment and Plan Assessment: 1 Acute CoVID 19 pneumonia. 2 Altered mental status secondary to above 3 Acute hypoxic respiratory failure secondary to above 4 Elevated inflammatory markers secondary to above 5 Elevated troponin 6 Acute renal failure 7 Lactic acidosis 8 History of coronary artery disease with previous stent placement 9 Gastroesophageal reflux disease 10 Hyperlipidemia 11 New-onset atrial fibrillation, currently on a heparin drip Plan: The patient was seen and evaluated by Dr. Lagunas Continue Remdesivir Continue Decadron, Pepcid, melatonin, vitamins and zinc. Continue heparin drip Echocardiogram pending We will continue to follow and make further recommendations based on his clinical status I, the cosigning physician, performed a history & physical examination of the patient. Lungs sounds with bilateral rhonchi. Maintaining good O2 saturations in the 90s on the 100% nonrebreather. I discussed the assessment and plan of care with my nurse practitioner, Lissette Mosqueda. I attest to the above note as dictated by her.
[2020-07-21] MEDS: HEPARIN SOD,PORK IN 0.45% NACL 25,000 UNIT in 0.45% NACL 1 250ML.BAG IV SCH (16:04)
[2020-07-21] MEDS ORDERED: REMDESIVIR 100 MG in SODIUM CHLORIDE 0.9% 250 ML IVPB SCH (18:00)
[2020-07-21] MEDS: MELATONIN 5 MG TABLET PO SCH (20:45)
[2020-07-21] MEDS: ATORVASTATIN 40 MG TAB PO SCH (20:45)
[2020-07-21] MEDS: REMDESIVIR 100 MG in SODIUM CHLORIDE 0.9% 250 ML IVPB SCH (20:45)
[2020-07-21] MEDS: LATANOPROST 0.005% OPHTH DROPS 2.5 ML BTL BOTH EYES SCH (20:46)
--- NOTE | 2020-07-21 22:31 | P.CONS ---
History of Present Illness - Reason for Consult Consult date: 07/21/20 covid 19 pneumonia Requesting physician: Murphy Carreon - Chief Complaint weakess and shortness of breath x 1 week - History of Present Illness Patient is a 80-year male presenting to the ER at [facility] last evening for evaluation of dizziness and lethargy apparently the patient has been going on for about 5 days and has been mostly dizziness lig htheadedness and generalized weakness patient has also been complaining of shortness of breath been getting worse for the last few days that is about a week ago patient did have a cough which is mild in intensity not bringing with sputum did have some nausea no vomiting no abdominal pain or any diarrhea patient on arrival to the hospital was afebrile however he was hypoxic with a sats of 74% on room air ,patient did have a normal white count but lymphopenia D-dimer was 5.42 patient did have elevated liver enzymes creatinine was 2.23 CRP is 202 LDH 10/21/1934 influenza PCR was negative reeves PCR came back positive, patient did have a chest x-ray diffuse bilateral infiltrates patient has been admitted to the hospital diagnosed with acute COVID-19 pneumonia patient started on dexamethasone Heparin remdesivir zinc sulfate infectious was consulted for further management Review of Systems Positive point has been mentioned in the HPI rest of the systems are negative Past Medical History Past Medical History: Coronary Artery Disease (CAD), GERD/Reflux, Hyperlipidemia History of Any Multi-Drug Resistant Organisms: None Reported Past Surgical History: Cholecystectomy, Heart Catheterization With Stent Date of Last Stent Placement:: 2011 Past Psychological History: No Psychological Hx Reported Smoking Status: Never smoker Past Alcohol Use History: None Reported Past Drug Use History: None Reported Medications and Allergies Home Medications Medication Instructions Recorded Confirmed Type Aspirin EC [Ecotrin] 325 mg PO DAILY 07/20/20 07/20/20 History Dorzolamide/Timolol/Pf 1 drop BOTH EYES BID 07/20/20 07/20/20 History [Dorzolamide 2%-Timolol 0.5%] Finasteride [Proscar] 5 mg PO DAILY 07/20/20 07/20/20 History Krill Oil 500 mg PO DAILY 07/20/20 07/20/20 History Labetalol [Trandate] 200 mg PO BID 07/20/20 07/20/20 History Latanoprost [Xalatan 0.005%] 1 drop BOTH EYES HS 07/20/20 07/20/20 History Nitroglycerin Sl Tabs [Nitrostat] 0.4 mg SL Q5M PRN 07/20/20 07/20/20 History Omeprazole 20 mg PO DAILY 07/20/20 07/20/20 History Simvastatin [Zocor] 20 mg PO HS 07/20/20 07/20/20 History Triamterene-Hctz 37.5-25Mg 1 cap PO DAILY 07/20/20 07/20/20 History [Dyazide 37.5-25 Capsule] amLODIPine [Norvasc] 10 mg PO DAILY 07/20/20 07/20/20 History lisinopriL 20 mg PO BID 07/20/20 07/20/20 History Allergies Allergy/AdvReac Type Severity Reaction Status Date / Time No Known Allergies Allergy Verified 07/20/20 17:30 Physical Exam Vitals: Vital Signs Temp Pulse Pulse Resp BP BP Pulse Ox 07/21/20 20:00 97.3 F L 94 20 120/58 90 L 07/21/20 19:35 97.3 F L 94 20 99/54 85 L 07/21/20 18:19 97.6 F 88 18 111/60 86 L 07/21/20 17:49 97.5 F L 89 18 115/61 85 L 07/21/20 17:39 97.5 F L 100 18 102/61 85 L 07/21/20 16:56 52 L 07/21/20 16:05 97.4 F L 91 18 113/67 85 L 07/21/20 13:00 97.6 F 81 18 112/65 86 L 07/21/20 09:10 97.5 F L 82 18 127/66 85 L 07/21/20 04:00 98.3 F 98 24 115/59 87 L 07/21/20 00:00 98.2 F 96 22 88/53 90 L 07/20/20 22:30 22 91 L Intake and Output 07/21/20 07/21/20 07/21/20 06:59 14:59 22:59 Intake Total 605.316 874.684 456 Output Total 450 600 380 Balance 155.316 274.684 76 Intake: Intake, IV Titration 155.316 94.684 Amount Heparin Sod,Pork in 0.45% 155.316 94.684 NaCl 25,000 unit In 0.45 % NaCl 1 250ml.bag @ 6. 889 UNITS/KG/HR 9.999 mls /hr IV .Q24H [facility] Rx#: [id number] Oral 450 780 240 Blood Product 216 Ffp Pher Conval Covid19 216 Acda 1 Unit [id number] Output: Urine 450 600 380 Other: Voiding Method Urinal Urinal Urinal # Voids 1 Weight 92 kg GENERAL DESCRIPTION: Elderly male lying in bed, no distress. No tachypnea or accessory muscle of respiration use. HEENT: Shows Pallor , no scleral icterus. Oral mucous membrane is dry. No pharyngeal erythema or thrush NECK: Trachea central, no thyromegaly. LUNGS: Unlabored breathing. Decreased breath sounds at the base. No wheeze or crackle. HEART: S1, S2, regular rate and rhythm. No loud murmur ABDOMEN: Soft, no tenderness , guarding or rigidity, no organomegaly EXTREMITIES: No edema of feet. SKIN: No rash, no masses palpable. NEUROLOGICAL: The patient is awake, alert, oriented x3, mood and affect normal. Results CBC & Chem 7: 07/21/20 05:25 07/21/20 05:25 Labs: Abnormal Lab Results - Last 24 Hours (Table) 07/20/20 07/20/20 07/20/20 Range/Units 15:46 18:43 22:43 RBC (4.30-5.90) m/uL Lymphocytes # (1.0-4.8) k/uL APTT 38.7 H (22.0-30.0) sec Chloride (98-107) mmol/L Carbon Dioxide (22-30) mmol/L BUN (9-20) mg/dL Creatinine (0.66-1.25) mg/dL Glucose (74-99) mg/dL Calcium (8.4-10.2) mg/dL Ferritin 1596.6 H (22.0-322.0) ng/mL AST (17-59) U/L Total Protein (6.3-8.2) g/dL Albumin (3.5-5.0) g/dL Procalcitonin 0.25 H (0.02-0.09) ng/mL 07/21/20 07/21/20 07/21/20 Range/Units 05:25 05:25 05:25 RBC 4.25 L (4.30-5.90) m/uL Lymphocytes # 0.5 L (1.0-4.8) k/uL APTT 65.5 H (22.0-30.0) sec Chloride 108 H (98-107) mmol/L Carbon Dioxide 20 L (22-30) mmol/L BUN 65 H (9-20) mg/dL Creatinine 2.03 H (0.66-1.25) mg/dL Glucose 147 H (74-99) mg/dL Calcium 8.3 L (8.4-10.2) mg/dL Ferritin (22.0-322.0) ng/mL AST 60 H (17-59) U/L Total Protein 6.1 L (6.3-8.2) g/dL Albumin 3.2 L (3.5-5.0) g/dL Procalcitonin (0.02-0.09) ng/mL Microbiology - Last 24 Hours (Table) 07/20/20 15:46 Blood Culture - Preliminary Blood No Growth after 24 hours Assessment and Plan Assessment: 1- patient presented to the hospital with weakness and dizziness increasing shortness of breath with evidence of significant hypoxemia, and bilateral infiltrated elevated inflammatory marker likely associated to acute Covid 19 pneumonia clinically with no suspicious for superadded bacterial pneumonia (1) COVID-19 Current Visit: Yes Status: Acute Code(s): U07.1 - COVID-19 SNOMED Code(s): 480734659 Plan: 1- patient is currently being treated with Remdisivir Dexamethasone heparin and zinc sulfate to continue 2-droplet isolation and respiratory support We will follow on clinical condition and cultures to further adjust medication if needed Thank you for this consultation will follow this patient with you Time with Patient: Greater than 30
[2020-07-22 02:54] LABS: ABG Base Excess -6.1 mmol/L; ABG HCO3 18 mmol/L (21-25); ABG Oxygen Saturation 84.9 % (94-97); ABG PCO2 28 mmHg (35-45); ABG PH 7.42 (7.35-7.45); ABG TCO2 19 mmol/L (19-24); Allen Test Performed? Yes
[2020-07-22 03:26] LABS: Glucose,Whole Blood 168 mg/dL (75-99)
[2020-07-22 04:00] LABS: Basophils % (A) 0 %; Eosinophils % (A) 0 %; HCT 38.4 % (39.0-53.0); Lymphocytes # (A) 0.5 k/uL (1.0-4.8); Lymphocytes % (A) 4 %; MCH 31.8 pg (25.0-35.0); MCHC 33.9 g/dL (31.0-37.0); MCV 93.8 fL (80.0-100.0); Mean Platelet Volume 8.3; Monocytes # (A) 0.5 k/uL (0-1.0); Monocytes % (A) 4 %; Neutrophils # (A) 10.8 k/uL (1.3-7.7); Neutrophils % (A) 91 %; Platelet Count 290 k/uL (150-450); RBC 4.09 m/uL (4.30-5.90); RDW 12.8 % (11.5-15.5); WBC 11.8 k/uL (3.8-10.6)
[2020-07-22 04:15] LABS: Albumin 3.2 g/dL (3.5-5.0); C Reactive Protein 78.7 mg/L (<10.0); Calcium 8.5 mg/dL (8.4-10.2); D-Dimer 3.29 mg/L FEU (<0.60); Partial Thromboplastin Time 33.4 sec (22.0-30.0); Potassium 4.3 mmol/L (3.5-5.1); Total Bilirubin 0.8 mg/dL (0.2-1.3); Total Protein 6.1 g/dL (6.3-8.2)
[2020-07-22] MEDS: HEPARIN SODIUM,PORCINE 5,000 UNIT/ML 1 ML VIAL IV PRN (04:51)
[2020-07-22] MEDS: FAMOTIDINE 20 MG TAB PO SCH (08:19)
[2020-07-22] MEDS: ASCORBIC ACID 500 MG TAB PO SCH (08:19)
[2020-07-22] MEDS: ASPIRIN 81 MG PO SCH (08:19)
[2020-07-22] MEDS: CHOLECALCIFEROL 1,000 UNIT TAB PO SCH (08:19)
[2020-07-22] MEDS: LABETALOL 200 MG TAB PO SCH ×2 (08:19→20:12)
[2020-07-22] MEDS: dexAMETHasone 2 MG TAB PO SCH (08:20)
[2020-07-22] MEDS: HEPARIN SOD,PORK IN 0.45% NACL 25,000 UNIT in 0.45% NACL 1 250ML.BAG IV SCH (08:20)
[2020-07-22] MEDS: ZINC SULFATE 220 MG CAP PO SCH (08:20)
[2020-07-22] MEDS: lisinopriL 20 MG TAB PO SCH ×2 (08:20→20:13)
[2020-07-22] MEDS: DORZOLAMIDE-TIMOLOL 2.23%/0.68 10ML BTL BOTH EYES SCH ×2 (08:21→20:21)
[2020-07-22] MEDS: SODIUM CHLORIDE 0.9% 1,000 ML IV SCH ×2 (08:21→15:13)
[2020-07-22] MEDS: PANTOPRAZOLE 40 MG TABLET PO SCH (08:21)
--- NOTE | 2020-07-22 08:30 | XR ---
EXAMINATION TYPE: XR chest 1V portable DATE OF EXAM: 07/22/2020 COMPARISON: 07/20/2020 INDICATION: Short of breath TECHNIQUE: Single frontal view of the chest is obtained. FINDINGS: The heart size is normal. The pulmonary vasculature is normal. Bibasilar infiltrates are present. These are worsening over the interval. IMPRESSION: 1. Clinical correlation recommended for atypical pneumonia. Worsening bibasilar infiltrates are prese nt.
[2020-07-22 10:11] LABS: Ferritin 1825.4 ng/mL (22.0-322.0)
--- NOTE | 2020-07-22 11:55 | P.GSCN ---
History of Present Illness Consult date: 07/22/20 History of present illness: 80-year-old gentleman in the hospital with covid 19 pneumonia. Due to his medical status the intensivists have asked for a Hanson catheter. Nursing staff was unable to do so. We are asked see the patient. The patient was seen by several years ago and was found to have a urethral stricture that was dilated with filiforms and followers. The patient is awake and alert. He has a rebreather on. He states that he has been urinating relatively well. Review of Systems - Constitutional Reports fever, Reports weakness - Respiratory Reports as per HPI - Genitourinary Reports as per HPI Past Medical History Past Medical History: Coronary Artery Disease (CAD), GERD/Reflux, Hyperlipidemia History of Any Multi-Drug Resistant Organisms: None Reported Past Surgical History: Cholecystectomy, Heart Catheterization With Stent Date of Last Stent Placement:: 2011 Past Psychological History: No Psychological Hx Reported Smoking Status: Never smoker Past Alcohol Use History: None Reported Past Drug Use History: None Reported Medications and Allergies Home Medications Medication Instructions Recorded Confirmed Type Aspirin EC [Ecotrin] 325 mg PO DAILY 07/20/20 07/20/20 History Dorzolamide/Timolol/Pf 1 drop BOTH EYES BID 07/20/20 07/20/20 History [Dorzolamide 2%-Timolol 0.5%] Finasteride [Proscar] 5 mg PO DAILY 07/20/20 07/20/20 History Krill Oil 500 mg PO DAILY 07/20/20 07/20/20 History Labetalol [Trandate] 200 mg PO BID 07/20/20 07/20/20 History Latanoprost [Xalatan 0.005%] 1 drop BOTH EYES HS 07/20/20 07/20/20 History Nitroglycerin Sl Tabs [Nitrostat] 0.4 mg SL Q5M PRN 07/20/20 07/20/20 History Omeprazole 20 mg PO DAILY 07/20/20 07/20/20 History Simvastatin [Zocor] 20 mg PO HS 07/20/20 07/20/20 History Triamterene-Hctz 37.5-25Mg 1 cap PO DAILY 07/20/20 07/20/20 History [Dyazide 37.5-25 Capsule] amLODIPine [Norvasc] 10 mg PO DAILY 07/20/20 07/20/20 History lisinopriL 20 mg PO BID 07/20/20 07/20/20 History Apixaban [Eliquis] 5 mg PO BID #60 tab 07/22/20 Rx Allergies Allergy/AdvReac Type Severity Reaction Status Date / Time No Known Allergies Allergy Verified 07/20/20 17:30 Surgical - Exam Vital Signs Temp Pulse Resp BP Pulse Ox 99.0 F 72 24 92/59 74 L 07/20/20 15:20 07/20/20 15:20 07/20/20 15:20 07/20/20 15:20 07/20/20 15:20 - General well developed, obese - Eyes PERRL - ENT no hearing loss - Neck no masses - Respiratory The patient has a a redo rebreather mask. He does not appear to be too short of breath. He is morbidly obese. normal expansion, normal respiratory effort - Cardiovascular Rhythm: regular - Abdomen Abdomen: soft, non tender - Genitourinary Not circumcised normal penis with no external lesions, testicles present, testicles non-tender - Integumentary no rash, no growths - Neurologic normal coordination, normal sensation - Musculoskeletal normal posture - Psychiatric oriented to time, oriented to person, oriented to place, memory intact Results - Labs 07/22/20 03:32 07/22/20 03:32 Abnormal Lab Results - Last 24 Hours (Table) 07/22/20 07/22/20 07/22/20 Range/Units 02:47 03:15 03:32 WBC 11.8 H (3.8-10.6) k/uL RBC 4.09 L (4.30-5.90) m/uL Hct 38.4 L (39.0-53.0) % Neutrophils # 10.8 H (1.3-7.7) k/uL Lymphocytes # 0.5 L (1.0-4.8) k/uL APTT (22.0-30.0) sec D-Dimer (<0.60) mg/L FEU ABG pCO2 28 L (35-45) mmHg ABG pO2 53 L* (83-108) mmHg ABG HCO3 18 L (21-25) mmol/L ABG O2 Saturation 84.9 L (94-97) % Chloride (98-107) mmol/L Carbon Dioxide (22-30) mmol/L BUN (9-20) mg/dL Creatinine (0.66-1.25) mg/dL Glucose (74-99) mg/dL POC Glucose (mg/dL) 168 H (75-99) mg/dL Ferritin (22.0-322.0) ng/mL Lactate Dehydrogenase (313-618) U/L CK-MB (CK-2) (0.0-2.4) ng/mL C-Reactive Protein (<10.0) mg/L Total Protein (6.3-8.2) g/dL Albumin (3.5-5.0) g/dL 07/22/20 07/22/20 07/22/20 Range/Units 03:32 03:32 03:32 WBC (3.8-10.6) k/uL RBC (4.30-5.90) m/uL Hct (39.0-53.0) % Neutrophils # (1.3-7.7) k/uL Lymphocytes # (1.0-4.8) k/uL APTT 33.4 H (22.0-30.0) sec D-Dimer 3.29 H (<0.60) mg/L FEU ABG pCO2 (35-45) mmHg ABG pO2 (83-108) mmHg ABG HCO3 (21-25) mmol/L ABG O2 Saturation (94-97) % Chloride 112 H (98-107) mmol/L Carbon Dioxide 18 L (22-30) mmol/L BUN 58 H (9-20) mg/dL Creatinine 1.34 H (0.66-1.25) mg/dL Glucose 172 H (74-99) mg/dL POC Glucose (mg/dL) (75-99) mg/dL Ferritin 1825.4 H (22.0-322.0) ng/mL Lactate Dehydrogenase 2065 H (313-618) U/L CK-MB (CK-2) 6.4 H (0.0-2.4) ng/mL C-Reactive Protein 78.7 H (<10.0) mg/L Total Protein 6.1 L (6.3-8.2) g/dL Albumin 3.2 L (3.5-5.0) g/dL Microbiology - Last 24 Hours (Table) 07/20/20 15:46 Blood Culture - Preliminary Blood No Growth after 24 hours Diabetes panel 07/22/20 Range/Units 03:32 Sodium 139 (137-145) mmol/L Potassium 4.3 (3.5-5.1) mmol/L Chloride 112 H (98-107) mmol/L Carbon Dioxide 18 L (22-30) mmol/L BUN 58 H (9-20) mg/dL Creatinine 1.34 H (0.66-1.25) mg/dL Glucose 172 H (74-99) mg/dL Calcium 8.5 (8.4-10.2) mg/dL AST 58 (17-59) U/L ALT 40 (4-49) U/L Alkaline Phosphatase 77 (38-126) U/L Total Protein 6.1 L (6.3-8.2) g/dL Albumin 3.2 L (3.5-5.0) g/dL Calcium panel 07/22/20 Range/Units 03:32 Calcium 8.5 (8.4-10.2) mg/dL Albumin 3.2 L (3.5-5.0) g/dL Pituitary panel 07/22/20 Range/Units 03:32 Sodium 139 (137-145) mmol/L Potassium 4.3 (3.5-5.1) mmol/L Chloride 112 H (98-107) mmol/L Carbon Dioxide 18 L (22-30) mmol/L BUN 58 H (9-20) mg/dL Creatinine 1.34 H (0.66-1.25) mg/dL Glucose 172 H (74-99) mg/dL Calcium 8.5 (8.4-10.2) mg/dL Adrenal panel 07/22/20 Range/Units 03:32 Sodium 139 (137-145) mmol/L Potassium 4.3 (3.5-5.1) mmol/L Chloride 112 H (98-107) mmol/L Carbon Dioxide 18 L (22-30) mmol/L BUN 58 H (9-20) mg/dL Creatinine 1.34 H (0.66-1.25) mg/dL Glucose 172 H (74-99) mg/dL Calcium 8.5 (8.4-10.2) mg/dL Total Bilirubin 0.8 (0.2-1.3) mg/dL AST 58 (17-59) U/L ALT 40 (4-49) U/L Alkaline Phosphatase 77 (38-126) U/L Total Protein 6.1 L (6.3-8.2) g/dL Albumin 3.2 L (3.5-5.0) g/dL Assessment and Plan Assessment: Impression: Covid 19 pneumonia. Probable urethral stricture. Plan urethral catheterization
--- NOTE | 2020-07-22 11:57 | P.PCN ---
Date of Procedure: 07/22/20 Preoperative Diagnosis: Inability to pass catheter. Postoperative Diagnosis: Same Procedure(s) Performed: Urethral dilation with filiforms and followers, [id number], placement of 14- Greek coud-tip catheter Anesthesia: none Control Technician #1: Twan Valdovinos Pathology: none sent Disposition: PACU Indications for Procedure: The patient is in the intensive care unit with a covied 19 pneumonia. The intensivists the vas for a Hanson catheter for accurate urinary output. The nursing staff is unable to pass catheter. Description of Procedure: Patient is prepped and draped sterilely. I attempted pass a 16 coud-tip catheter but meet resistance in the bulbar urethra. I then dilate the urethra with filiforms and followers from [id number]. I then pass a 14-Greek coud- tip catheter in the bladder. There is a large volume of urine return. It is slightly pink due to the trauma from the catheterization is the fact that he is heparinized. The catheter should remain in place as long as the medical staff deems it necessary. When it is removed he should have no problems voiding. I do not need to see the patient in follow-up.
[2020-07-22] MEDS ORDERED: ASCORBIC ACID 500 MG TAB PO SCH (12:00)
--- NOTE | 2020-07-22 12:18 | CDI ---
Documentation Clarification Form Date: 07/22/2020 12:02:09 PM From: Chanelle Samson CCS, CCDS Admit Date: 07/20/2020 05:02:00 PM Patient Name: Lewis Ortiz Visit Number: [id number] Discharge Date: ATTENTION: The Clinical Documentation Specialists (CDI) and [facility] Coding Staff appreciate your assistance in clarifying documentation. Please respond to the clarification below the line at the bottom and electronically sign. The CDI & [facility] Coding staff will review the response and follow-up if needed. Please note: Queries are made part of the Legal Health Record. If you have any questions, please contact the author of this message via ITS. Dr. Frances Walker: Per the 07/21 History & Physical: "Elevated troponin most likely secondary to COVID 19, rule out non-ST elevated myocardial infarction." Per the 07/21 Cardiology Consult: "New-onset paroxysmal atrial fibrillation with controlled ventricular rate. COVID 19. Elevated troponin secondary to COVID 19 and hypoxia causing a supply and demand mismatch." Patient History/Risk Factors: CAD w/previous stent, Hypertension, Hyperlipidemia, GERD, BPH, Non smoker. Clinical Indicators: Presented to the ED on 07/20 with Dizziness & lethargy, worsening dyspnea & dry cough, no fever. Troponins elevated in ED. Troponin 07/20: 0.128^^ EKG Results: R 87 Atrial fibrillation, possible inferior infarct, age undetermined. Treatment: IV Heparin drip, IV fluid bolus, IV Remdisivir, IV Decadron, po ASA, O2 15L nrb. For accurate documentation please clarify the significance of the elevated troponins & documented supply & demand mismatch: Myocardial Infarction ruled out Myocardial Infarction ruled in, please specify type: o NSTEMI o OR Type II o Other type of OR o Other, please specify: Unable to determine Other Condition, please specify (Last Revision: August 2019) GLADISD
[2020-07-22] MEDS: FINASTERIDE 5 MG TAB PO SCH (12:40)
--- NOTE | 2020-07-22 13:00 | P.PN ---
Subjective HISTORY OF PRESENTING ILLNESS This is a pleasant 80-year-old male past medical history significant for coronary artery disease status post PCI to the RCA in 2010, hypertension and dyslipidemia. He follows in the office with Dr. Dr. Oropeza. The patient was having increased dypnea and was unable to maintain oxygen saturations on non -rebreather. He was transferred to ICU and is currently on airvo. He denies chest pain, dizziness or palpitations. He continues to be in atrial fibrillation with controlled rate. Blood pressure 118/82 heart rate 90 afebrile and not maintaining oxygen saturation on airvo. Laboratory data reviewed, WBC 11.8, hemoglobin 13, platelets 290, d-dimer 3.29, sodium 139, potassium 4.3, creatinine 1.34. Chest xray today shows worsening bibasilar infiltrates. PHYSICAL EXAMINATION Blood pressure 115/59 heart rate 98 afebrile and pulse ox 87% on a nonrebreather CONSTITUTIONAL: No apparent distress. HEENT: Head is normocephalic. Pupils are equal, round. Sclerae anicteric. Mucous membranes of the mouth are moist. No JVD. No carotid bruit. CHEST EXAMINATION: Scattered rhonchi, no rales or wheezes. No chest wall tenderness is noted on palpation or with deep breathing. HEART EXAMINATION: Irregular rate and rhythm. S1, S2 heard. No murmurs, gallops or rub. EXTREMITIES: 2+ peripheral pulses, no lower extremity edema and no calf tenderness. ASSESSMENT New-onset paroxysmal atrial fibrillation with controlled ventricular rate. Covid 19 Elevated troponin secondary to covid 19 and hyoxia causing a supply and demand mismatch, Type II myocardial injury.. Coronary artery disease status post PCI of the RCA in 2010 Hypertension with hypotension since admission Dyslipidemia PLAN The patient if having a cystoscopy today with Dr. Valdovinos for urinary strictures. We will continue on heparin infusion for now and start eliquis tonight if the procedure goes well as planned. Continue labetolol for rate control. Nurse Practitioner note has been reviewed, I agree with a documented findings and plan of care. Patient was seen and examined. Objective - Vital Signs Vital signs: Vital Signs Temp 97.9 F 07/22/20 08:00 Pulse 80 07/22/20 11:00 Resp 27 H 07/22/20 11:00 BP 105/62 07/22/20 11:00 Pulse Ox 89 L 07/22/20 11:00 Intake & Output 07/21/20 07/22/20 07/22/20 18:59 06:59 18:59 Intake Total 660.117 9442.261 722.078 Output Total 600 880 250 Balance 274.684 129.261 472.078 Weight 143.5 kg Intake: IV 390 540 Sodium Chloride 0.9% 1, 390 540 000 ml @ 50 mls/hr IV . Q20H [facility] Rx#:[id number] Intake, IV Titration 94.684 163.261 62.078 Amount Heparin Sod,Pork in 0.45% 94.684 163.261 62.078 NaCl 25,000 unit In 0.45 % NaCl 1 250ml.bag @ 6. 889 UNITS/KG/HR 9.999 mls /hr IV .Q24H [facility] Rx#: [id number] Oral 780 240 120 Blood Product 0 216 Ffp Pher Conval Covid19 0 216 Acda 1 Unit [id number] Output: Urine 600 880 250 Other: Voiding Method Urinal Urinal # Voids 1 1 - Labs CBC & Chem 7: 07/22/20 03:32 07/22/20 03:32 Labs: Abnormal Lab Results - Last 24 Hours (Table) 07/22/20 07/22/20 07/22/20 Range/Units 02:47 03:15 03:32 WBC 11.8 H (3.8-10.6) k/uL RBC 4.09 L (4.30-5.90) m/uL Hct 38.4 L (39.0-53.0) % Neutrophils # 10.8 H (1.3-7.7) k/uL Lymphocytes # 0.5 L (1.0-4.8) k/uL APTT (22.0-30.0) sec D-Dimer (<0.60) mg/L FEU ABG pCO2 28 L (35-45) mmHg ABG pO2 53 L* (83-108) mmHg ABG HCO3 18 L (21-25) mmol/L ABG O2 Saturation 84.9 L (94-97) % Chloride (98-107) mmol/L Carbon Dioxide (22-30) mmol/L BUN (9-20) mg/dL Creatinine (0.66-1.25) mg/dL Glucose (74-99) mg/dL POC Glucose (mg/dL) 168 H (75-99) mg/dL Ferritin (22.0-322.0) ng/mL Lactate Dehydrogenase (313-618) U/L CK-MB (CK-2) (0.0-2.4) ng/mL C-Reactive Protein (<10.0) mg/L Total Protein (6.3-8.2) g/dL Albumin (3.5-5.0) g/dL 07/22/20 07/22/20 07/22/20 Range/Units 03:32 03:32 03:32 WBC (3.8-10.6) k/uL RBC (4.30-5.90) m/uL Hct (39.0-53.0) % Neutrophils # (1.3-7.7) k/uL Lymphocytes # (1.0-4.8) k/uL APTT 33.4 H (22.0-30.0) sec D-Dimer 3.29 H (<0.60) mg/L FEU ABG pCO2 (35-45) mmHg ABG pO2 (83-108) mmHg ABG HCO3 (21-25) mmol/L ABG O2 Saturation (94-97) % Chloride 112 H (98-107) mmol/L Carbon Dioxide 18 L (22-30) mmol/L BUN 58 H (9-20) mg/dL Creatinine 1.34 H (0.66-1.25) mg/dL Glucose 172 H (74-99) mg/dL POC Glucose (mg/dL) (75-99) mg/dL Ferritin 1825.4 H (22.0-322.0) ng/mL Lactate Dehydrogenase 2065 H (313-618) U/L CK-MB (CK-2) 6.4 H (0.0-2.4) ng/mL C-Reactive Protein 78.7 H (<10.0) mg/L Total Protein 6.1 L (6.3-8.2) g/dL Albumin 3.2 L (3.5-5.0) g/dL 07/22/20 Range/Units 11:07 WBC (3.8-10.6) k/uL RBC (4.30-5.90) m/uL Hct (39.0-53.0) % Neutrophils # (1.3-7.7) k/uL Lymphocytes # (1.0-4.8) k/uL APTT 55.1 H (22.0-30.0) sec D-Dimer (<0.60) mg/L FEU ABG pCO2 (35-45) mmHg ABG pO2 (83-108) mmHg ABG HCO3 (21-25) mmol/L ABG O2 Saturation (94-97) % Chloride (98-107) mmol/L Carbon Dioxide (22-30) mmol/L BUN (9-20) mg/dL Creatinine (0.66-1.25) mg/dL Glucose (74-99) mg/dL POC Glucose (mg/dL) (75-99) mg/dL Ferritin (22.0-322.0) ng/mL Lactate Dehydrogenase (313-618) U/L CK-MB (CK-2) (0.0-2.4) ng/mL C-Reactive Protein (<10.0) mg/L Total Protein (6.3-8.2) g/dL Albumin (3.5-5.0) g/dL Microbiology - Last 24 Hours (Table) 07/20/20 15:46 Blood Culture - Preliminary Blood No Growth after 24 hours
--- NOTE | 2020-07-22 13:01 | ECHOF ---
Referral Reason:new onset afib, elev trop MEASUREMENTS -------- HEIGHT: 190.5 cm WEIGHT: 91.6 kg BP: 129/79 IVSd: 1.8 cm (0.6 - 1.1) LVIDd: 4.2 cm (3.9 - 5.3) LVPWd: 1.5 cm (0.6 - 1.1) EDV(Teich): 78 ml IVSs: 2.1 cm LVIDs: 3.0 cm LVPWs: 1.9 cm %IVS Thck: 17 % ESV(Teich): 34 ml EF(Teich): 56 % %FS: 29 % SV(Teich): 44 ml Ao Diam: 3.1 cm (2.0 - 3.7) AV Cusp: 2.2 cm (1.5 - 2.6) AV Vmax: 0.94 m/s AV maxP.52 mmHg TR Vmax: 2.76 m/s TR maxP.53 mmHg RAP: 5.00 mmHg RVSP: 35.53 mmHg FINDINGS -------- Sinus rhythm. This was a technically difficult study with suboptimal views. The left ventricular size is normal. There is moderate concentric left ventricular hypertrophy. O verall left ventricular systolic function is mildly impaired with, an EF between 45 - 50 %. The RV was not well visualized. The left atrium was not well visualized. The right atrium was not well visualized. 5.0mg of Lumason was utilized for enhancement of images Interatrial and interventricular septum intact. The aortic valve was not well visualized. There is no evidence of aortic regurgitation. There is no evidence of aortic stenosis. No mitral regurgitation. Mild tricuspid regurgitation present. There is mild pulmonary hypertension. The right ventricular systolic pressure, as measured by Doppler, is 35.53mmHg. The aortic root size is normal. IVC Not well visulized. There is no pericardial effusion. CONCLUSIONS -------- 1. The left ventricular size is normal. 2. There is moderate concentric left ventricular hypertrophy. 3. Overall left ventricular systolic function is mildly impaired with, an EF between 45 - 50 %. 4. Mild tricuspid regurgitation present. 5. There is mild pulmonary hypertension. 6. The right ventricular systolic pressure, as measured by Doppler, is 35.53mmHg. FACILITIES SUPERVISOR: Mary Jean, [facility]
--- NOTE | 2020-07-22 13:30 | P.PN ---
Subjective Progress Note Date: 07/22/20 HISTORY OF PRESENT ILLNESS This is a 80-year-old male patient of Dr. Cerda with past medical history of coronary artery disease with previous stent placement, hypertension, hyperlipidemia, gastroesophageal reflux disease. Patient complains of shortness of breath, dry cough, increasing fatigue and weakness and dizziness that of an going on for the past 5 days. was also concerned the patient was more somnolent. 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 Patient has not had any fever. Temperature 90.9, heart rate 72, blood pressure 92/59, pulse ox 74% on room air. Patient was placed on a nonrebreather and that brought his pulse ox up to 90 max at 15 L. WBC 10.2, hemoglobin 14.6, platelet count 278. Lymphopenia at 0.7. D-dimer 5.42. Initial venous blood gas pH 7.52, pCO2 21, bicarb 17. BUN 16 creatinine 2.23, baseline is not known. Blood sugar 150. Initial lactic acid 2.2 with repeat 1.4. Ferritin 1596, total bilirubin 1.5, AST 77, ALT 50, alkaline phosphatase 52, LDH 2236. Troponin 0.128. C-reactive protein 202.3. ProBNP 1770. Pro-calcitonin 0.25. Coronavirus detected. Chest x-ray reveals bilateral infiltrate. EKG atrial fibrillation at a heart rate of 87. Patient was admitted to the cardiac stepdown unit and consult with primary medicine was placed and patient started on Remdesivir, Lovenox, dexamethasone and vitamins. Subsequently consult added for cardiology regarding atrial fibrillation and elevated troponins. 07/22: Patient remains in the intensive care unit but feels that breathing status is improved from yesterday. He is currently on high flow nasal cannula pulse oxing 89%. Patient appears to be comfortable at rest. conveyor monitor remains atrial fibrillation. Eliquis cost has been checked by assistant case manager $33. He has been afebrile, heart rate 82, blood pressure 103/74. Repeat blood work reveals WBC 11.8, hemoglobin 13. D-dimer 3.29. BUN 58 creatinine 1.34, CO2 18. Ferritin 1825, LDH 2065, C-reactive protein 78.7. Patient is currently on day #3/5 of Remdesivir course. IV heparin has been transitioned eliquis and continued on oral labetalol. REVIEW OF SYSTEMS Constitutional: No fever, no chills, no night sweats. No weight change. Reports reports weakness, fatigue reports lethargy. Reports daytime sleepiness. EENT: No headache. No blurred vision or double vision, no loss of vision. Reports dizziness. No nasal drainage or congestion. No epistaxis. No sore throat. Lungs: Reports shortness of breath slightly improved, Reportscough, Reports sputum production. No wheezing. Cardiovascular: No chest pain, no lower extremity edema. No palpitations. No paroxysmal nocturnal dyspnea. No orthopnea. Reports lightheadedness or dizziness. No syncopal episodes. Abdominal: No abdominal pain. No nausea, vomiting. No diarrhea. No constipation. No bloody or tarry stools.. No loss of appetite. Genitourinary: No dysuria, increased frequency, urgency. No urinary retention. Musculoskeletal: No myalgias. Reports muscle weakness, no gait dysfunction, no frequent falls. No back pain. No neck pain. Integumentary: No wounds, no lesions. No rash or pruritus. Neurologic: No aphasia. No facial droop. Reported change in mentation. No head injury. No headache. No paralysis. No paresthesia. Psychiatric: No depression. No anxiety. Endocrine: No abnormal blood sugars. PHYSICAL EXAMINATION Gen: This is a 80-year-old male. Patient is resting in bed and appears to be comfortable currently on high flow nasal cannula. HEENT: Head is atraumatic, normocephalic. Pupils equal, round. Sclerae is anicteric. NECK: Supple. No JVD. No lymphadenopathy. No thyromegaly. LUNGS: Lungs are clear to auscultation. No intercostal retractions. HEART: Regular rate and rhythm. No murmur. ABDOMEN: Soft. Bowel sounds are present. No masses. No tenderness. EXTREMITIES: No pedal edema. No calf tenderness. NEUROLOGICAL: Patient is awake, alert and oriented x3. Cranial nerves 2 through 12 are grossly intact. ASSESSMENT AND PLAN 1. Acute hypoxic respiratory failure secondary to Covid 19 pneumonia. Continue oxygen therapy, currently at high flow nasal cannula. Patient encouraged to lay prone. Patient will be monitored closely and may require home oxygen at the time of discharge. Pulmonary consult appreciated. 2. Metabolic encephalopathy secondary to Covid 19 pneumonia, improving. Continue treatment for Covid 19 pneumonia. 3. Acute COVID-19 pneumonia. Continue Remdesivir date 11/01, dexamethasone 6 mg 3 times daily, heparin drip, vitamin supplements: Vitamin D, vitamin C, zinc, prone positioning. 4. New onset atrial fibrillation, rate controlled. Patient is currently on labetalol 200 mg twice daily, cardiology consult appreciated, heparin drip transitioned to eliquis. 5. Elevated troponin most likely secondary to Covid 19, rule out non-ST elevated myocardial infarction. Cardiology consult. 6. Acute kidney injury. Baseline renal function is unknown. Continue fluids and recheck creatinine in the morning. 7. Lactic acidosis secondary to Covid 19, resolved. 8. History of coronary artery disease with previous stent in 2010. 9. Gastroesophageal reflux disease and GI prophylaxis. Pepcid. 10. Hyperlipidemia. Continue atorvastatin 10 mg at bedtime 11. Hypertension. Continue labetalol 200 mg twice daily, lisinopril 20 mg twice daily, Dyazide 1 daily. 12. Benign prostatic hypertrophy. Continue Proscar 5 mg daily. 13. DVT prophylaxis. Heparin drip. DISCHARGE PLAN To be determined. Impression and plan of care have been directed as dictated by the signing physician. Nichelle Dsouza nurse practitioner acting as scribe for signing physician. Objective - Vital Signs Vital signs: Vital Signs Temp 97.9 F 07/22/20 08:00 Pulse 82 07/22/20 08:00 Resp 25 H 07/22/20 08:00 BP 103/74 07/22/20 08:00 Pulse Ox 89 L 07/22/20 08:00 Intake & Output 07/21/20 07/22/20 07/22/20 18:59 06:59 18:59 Intake Total 715.305 1837.261 622.078 Output Total 600 880 Balance 274.684 129.261 622.078 Weight 143.5 kg Intake: IV 390 440 Sodium Chloride 0.9% 1, 390 440 000 ml @ 50 mls/hr IV . Q20H [facility] Rx#:[id number] Intake, IV Titration 94.684 163.261 62.078 Amount Heparin Sod,Pork in 0.45% 94.684 163.261 62.078 NaCl 25,000 unit In 0.45 % NaCl 1 250ml.bag @ 6. 889 UNITS/KG/HR 9.999 mls /hr IV .Q24H [facility] Rx#: [id number] Oral 780 240 120 Blood Product 0 216 Ffp Pher Conval Covid19 0 216 Acda 1 Unit [id number] Output: Urine 600 880 Other: Voiding Method Urinal Urinal # Voids 1 - Labs CBC & Chem 7: 07/22/20 03:32 07/22/20 03:32 Labs: Abnormal Lab Results - Last 24 Hours (Table) 07/21/20 07/22/20 07/22/20 Range/Units 05:25 02:47 03:15 WBC (3.8-10.6) k/uL RBC (4.30-5.90) m/uL Hct (39.0-53.0) % Neutrophils # (1.3-7.7) k/uL Lymphocytes # (1.0-4.8) k/uL APTT (22.0-30.0) sec D-Dimer (<0.60) mg/L FEU ABG pCO2 28 L (35-45) mmHg ABG pO2 53 L* (83-108) mmHg ABG HCO3 18 L (21-25) mmol/L ABG O2 Saturation 84.9 L (94-97) % Chloride 108 H (98-107) mmol/L Carbon Dioxide 20 L (22-30) mmol/L BUN 65 H (9-20) mg/dL Creatinine 2.03 H (0.66-1.25) mg/dL Glucose 147 H (74-99) mg/dL POC Glucose (mg/dL) 168 H (75-99) mg/dL Calcium 8.3 L (8.4-10.2) mg/dL AST 60 H (17-59) U/L Lactate Dehydrogenase (313-618) U/L CK-MB (CK-2) (0.0-2.4) ng/mL C-Reactive Protein (<10.0) mg/L Total Protein 6.1 L (6.3-8.2) g/dL Albumin 3.2 L (3.5-5.0) g/dL 07/22/20 07/22/20 07/22/20 Range/Units 03:32 03:32 03:32 WBC 11.8 H (3.8-10.6) k/uL RBC 4.09 L (4.30-5.90) m/uL Hct 38.4 L (39.0-53.0) % Neutrophils # 10.8 H (1.3-7.7) k/uL Lymphocytes # 0.5 L (1.0-4.8) k/uL APTT 33.4 H (22.0-30.0) sec D-Dimer 3.29 H (<0.60) mg/L FEU ABG pCO2 (35-45) mmHg ABG pO2 (83-108) mmHg ABG HCO3 (21-25) mmol/L ABG O2 Saturation (94-97) % Chloride 112 H (98-107) mmol/L Carbon Dioxide 18 L (22-30) mmol/L BUN 58 H (9-20) mg/dL Creatinine 1.34 H (0.66-1.25) mg/dL Glucose 172 H (74-99) mg/dL POC Glucose (mg/dL) (75-99) mg/dL Calcium (8.4-10.2) mg/dL AST (17-59) U/L Lactate Dehydrogenase 2065 H (313-618) U/L CK-MB (CK-2) (0.0-2.4) ng/mL C-Reactive Protein 78.7 H (<10.0) mg/L Total Protein 6.1 L (6.3-8.2) g/dL Albumin 3.2 L (3.5-5.0) g/dL 07/22/20 Range/Units 03:32 WBC (3.8-10.6) k/uL RBC (4.30-5.90) m/uL Hct (39.0-53.0) % Neutrophils # (1.3-7.7) k/uL Lymphocytes # (1.0-4.8) k/uL APTT (22.0-30.0) sec D-Dimer (<0.60) mg/L FEU ABG pCO2 (35-45) mmHg ABG pO2 (83-108) mmHg ABG HCO3 (21-25) mmol/L ABG O2 Saturation (94-97) % Chloride (98-107) mmol/L Carbon Dioxide (22-30) mmol/L BUN (9-20) mg/dL Creatinine (0.66-1.25) mg/dL Glucose (74-99) mg/dL POC Glucose (mg/dL) (75-99) mg/dL Calcium (8.4-10.2) mg/dL AST (17-59) U/L Lactate Dehydrogenase (313-618) U/L CK-MB (CK-2) 6.4 H (0.0-2.4) ng/mL C-Reactive Protein (<10.0) mg/L Total Protein (6.3-8.2) g/dL Albumin (3.5-5.0) g/dL Microbiology - Last 24 Hours (Table) 07/20/20 15:46 Blood Culture - Preliminary Blood No Growth after 24 hours
--- NOTE | 2020-07-22 16:23 | P.PN ---
Subjective Progress Note Date: 07/22/20 Principal diagnosis: Acute hypoxic respiratory failure secondary to covid 19 pneumonitis This is a 80-year-old gentleman with a history of coronary artery disease with previous stent placement, gastroesophageal reflux disease, hyper lipidemia. He presents to the emergency room today with complaints of dizziness, fatigue, weakness. His is finding him quite somnolent. This is been going on for at least 5 days. 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 No reported fever. He has had increasing shortness of breath and a dry cough. Chest x-ray reveals evidence of moderate bilateral opacities predominantly in the mid to lower lungs. His presenting oxygen was 74% O2 saturation on room air. Temperature 90.9. He is been placed on 15 L nonrebreather maintaining O2 saturation of 89- 90%. White count 10.2. Hemoglobin 14.6. Lymphocytes 0.7. D-dimer 5.42. Sodium 138. Potassium 4.8. Creatinine 2.23. Lactic acid 2.2. Glucose 150. AST 77, ALT 50. LDH 2236. Troponin 0.128. C-reactive protein 202. ProBNP 1770. Briones virus by PCR positive. He's been initiated on a heparin drip. Resuscitated with 500 ML bolus. Currently on 0.9 normal saline at 130 ML's per hour. Received Decadron. Aspirin. He is seen today in consultation in the emergency room. Currently afebrile. 89% O2 saturation on 15 L nonrebreather. The patient seen today 07/21/2020 in follow-up on the selective care unit. He is currently awake and alert resting fairly comfortably in bed. He remains on 100% nonrebreather mask. He did have issues with atrial fibrillation which was new for the patient. He is currently on a heparin drip. He is also on day 2 of Remdesivir for his CoVID Pneumonia. White count 5.8. Hemoglobin 13.3. Lymphocytes 0.5. Sodium 141. Potassium 4.1. Creatinine 2.03. He remains on dexamethasone, vitamin C, vitamin D, Pepcid, zinc. 0.9 normal saline at 130 ML's per hour. Echocardiogram pending. Reevaluated today on 07/22/20, patient remains in the ICU, admitted on 07/20, presently on Airvo at 60 L/m, FiO2 of 90%, O2 saturation is marginal. IV fluid is at 50 mL per hour, patient received remdesivir and 1 unit of convalescent plasma. Patient developed new onset atrial fibrillation, he is on Eliquis, he is also on Decadron, and his overall pulmonary status is marginal. WBC count is 11.8 hemoglobin is 13 d-dimer is 3.29 lites are normal BUN is 58 creatinine 1.34. LDH is 2065, C-reactive protein is 78.7 Objective - Vital Signs Vital signs: Vital Signs Temp 97.9 F 07/22/20 12:00 Pulse 77 07/22/20 15:00 Resp 23 07/22/20 15:00 BP 102/64 07/22/20 15:00 Pulse Ox 89 L 07/22/20 15:00 Intake & Output 07/21/20 07/22/20 07/22/20 18:59 06:59 18:59 Intake Total 954.158 3877.261 822.078 Output Total 600 880 385 Balance 274.684 129.261 437.078 Weight 143.5 kg Intake: IV 390 640 Sodium Chloride 0.9% 1, 390 640 000 ml @ 50 mls/hr IV . Q20H [facility] Rx#:[id number] Intake, IV Titration 94.684 163.261 62.078 Amount Heparin Sod,Pork in 0.45% 94.684 163.261 62.078 NaCl 25,000 unit In 0.45 % NaCl 1 250ml.bag @ 6. 889 UNITS/KG/HR 9.999 mls /hr IV .Q24H [facility] Rx#: [id number] Oral 780 240 120 Blood Product 0 216 Ffp Pher Conval Covid19 0 216 Acda 1 Unit [id number] Output: Urine 600 880 385 Other: Voiding Method Urinal Urinal Urinal # Voids 1 1 - Exam GENERAL EXAM: 80-year-old somnolent, on high FiO2 and high flow HEAD: Normocephalic. Atraumatic. EENT: PERRLA, EOMI, nonicteric.. No neck masses, no JVD. CHEST: No chest wall deformity. LUNGS: Equal air entry with bilateral rhonchi CVS: S1 and S2 normal with no audible murmur, irregular rhythm. ABDOMEN: No hepatosplenomegaly, normal bowel sounds, no guarding or rigidity. SPINE: No scoliosis or deformity SKIN: No rashes CENTRAL NERVOUS SYSTEM: Alert and oriented 3 no gross focal deficits EXTREMITIES: There is no peripheral edema. No clubbing, no cyanosis. Peripheral pulses are intact. - Labs CBC & Chem 7: 07/22/20 03:32 07/22/20 03:32 Labs: Abnormal Lab Results - Last 24 Hours (Table) 07/22/20 07/22/20 07/22/20 Range/Units 02:47 03:15 03:32 WBC 11.8 H (3.8-10.6) k/uL RBC 4.09 L (4.30-5.90) m/uL Hct 38.4 L (39.0-53.0) % Neutrophils # 10.8 H (1.3-7.7) k/uL Lymphocytes # 0.5 L (1.0-4.8) k/uL APTT (22.0-30.0) sec D-Dimer (<0.60) mg/L FEU ABG pCO2 28 L (35-45) mmHg ABG pO2 53 L* (83-108) mmHg ABG HCO3 18 L (21-25) mmol/L ABG O2 Saturation 84.9 L (94-97) % Chloride (98-107) mmol/L Carbon Dioxide (22-30) mmol/L BUN (9-20) mg/dL Creatinine (0.66-1.25) mg/dL Glucose (74-99) mg/dL POC Glucose (mg/dL) 168 H (75-99) mg/dL Ferritin (22.0-322.0) ng/mL Lactate Dehydrogenase (313-618) U/L CK-MB (CK-2) (0.0-2.4) ng/mL C-Reactive Protein (<10.0) mg/L Total Protein (6.3-8.2) g/dL Albumin (3.5-5.0) g/dL 07/22/20 07/22/20 07/22/20 Range/Units 03:32 03:32 03:32 WBC (3.8-10.6) k/uL RBC (4.30-5.90) m/uL Hct (39.0-53.0) % Neutrophils # (1.3-7.7) k/uL Lymphocytes # (1.0-4.8) k/uL APTT 33.4 H (22.0-30.0) sec D-Dimer 3.29 H (<0.60) mg/L FEU ABG pCO2 (35-45) mmHg ABG pO2 (83-108) mmHg ABG HCO3 (21-25) mmol/L ABG O2 Saturation (94-97) % Chloride 112 H (98-107) mmol/L Carbon Dioxide 18 L (22-30) mmol/L BUN 58 H (9-20) mg/dL Creatinine 1.34 H (0.66-1.25) mg/dL Glucose 172 H (74-99) mg/dL POC Glucose (mg/dL) (75-99) mg/dL Ferritin 1825.4 H (22.0-322.0) ng/mL Lactate Dehydrogenase 2065 H (313-618) U/L CK-MB (CK-2) 6.4 H (0.0-2.4) ng/mL C-Reactive Protein 78.7 H (<10.0) mg/L Total Protein 6.1 L (6.3-8.2) g/dL Albumin 3.2 L (3.5-5.0) g/dL 07/22/20 Range/Units 11:07 WBC (3.8-10.6) k/uL RBC (4.30-5.90) m/uL Hct (39.0-53.0) % Neutrophils # (1.3-7.7) k/uL Lymphocytes # (1.0-4.8) k/uL APTT 55.1 H (22.0-30.0) sec D-Dimer (<0.60) mg/L FEU ABG pCO2 (35-45) mmHg ABG pO2 (83-108) mmHg ABG HCO3 (21-25) mmol/L ABG O2 Saturation (94-97) % Chloride (98-107) mmol/L Carbon Dioxide (22-30) mmol/L BUN (9-20) mg/dL Creatinine (0.66-1.25) mg/dL Glucose (74-99) mg/dL POC Glucose (mg/dL) (75-99) mg/dL Ferritin (22.0-322.0) ng/mL Lactate Dehydrogenase (313-618) U/L CK-MB (CK-2) (0.0-2.4) ng/mL C-Reactive Protein (<10.0) mg/L Total Protein (6.3-8.2) g/dL Albumin (3.5-5.0) g/dL Microbiology - Last 24 Hours (Table) 07/20/20 15:46 Blood Culture - Preliminary Blood No Growth after 24 hours Assessment and Plan Assessment: Impression: Acute hypoxic respiratory failure Acute covid 19 pneumonia History of coronary artery disease. Acute kidney injury New-onset atrial fibrillation on heparin, but will be transitioned to Eliquis. Recommendation: Continue present treatment plan Continue high flow oxygen and high FiO2. Titrate accordingly. Continue Decadron, melatonin, vitamins and zinc, Continue remdesivir We'll continue to monitor in the ICU, prognosis is extremely poor and guarded. Time with Patient: Less than 30
[2020-07-22] MEDS: REMDESIVIR 100 MG in SODIUM CHLORIDE 0.9% 250 ML IVPB SCH (18:09)
[2020-07-22] MEDS: APIXABAN 5 MG TAB PO SCH (20:11)
[2020-07-22] MEDS: ATORVASTATIN 40 MG TAB PO SCH (20:11)
[2020-07-22] MEDS: LATANOPROST 0.005% OPHTH DROPS 2.5 ML BTL BOTH EYES SCH (20:21)
[2020-07-22] MEDS: MELATONIN 5 MG TABLET PO SCH (22:20)
--- NOTE | 2020-07-22 22:59 | PN ---
PROGRESS NOTE DATE OF SERVICE: 07/22/2020 REASON FOR FOLLOWUP: Acute COVID-19 pneumonia. INTERVAL HISTORY: The patient did have worsening of this respiratory status, for which the patient was transferred down to the ICU. The patient is currently on high-flow nasal oxygen. The patient denies having any chest pain. He did have some cough, not bringing up any sputum. No nausea. No vomiting. No abdominal pain or diarrhea. PHYSICAL EXAMINATION: Blood pressure 121/76, pulse of 87, temperature 98.1. He is 90% on 60% high-flow oxygen. General description is an elderly male lying in bed in no distress. RESPIRATORY SYSTEM: Unlabored breathing with decreased intensity of breath sounds. No wheeze. HEART: S1, S2. Regular rate and rhythm. ABDOMEN: Soft. No tenderness. LABS: Hemoglobin is 13.5, white count 11.8, BUN of 58, creatinine 1.34. LDH is elevated, though slightly decreased. DIAGNOSTIC IMPRESSION AND PLAN: Patient with acute COVID-19 infection in this patient currently covered with remdesivir, heparin, zinc and dexamethasone; to continue along with respiratory support. Monitor his clinical course closely. MMODL / IJN: [id number] /
[2020-07-23] MEDS ORDERED: LORazepam 2 MG/ML INJ IV PRN (00:19)
[2020-07-23 04:31] LABS: Basophils # (A) 0.1 k/uL (0-0.2); Basophils % (A) 0 %; Eosinophils # (A) 0.1 k/uL (0-0.7); Eosinophils % (A) 1 %; HCT 41.8 % (39.0-53.0); HGB 13.7 gm/dL (13.0-17.5); Lymphocytes # (A) 0.3 k/uL (1.0-4.8); Lymphocytes % (A) 2 %; MCH 31.7 pg (25.0-35.0); MCHC 32.9 g/dL (31.0-37.0); MCV 96.3 fL (80.0-100.0); Monocytes # (A) 0.8 k/uL (0-1.0); Monocytes % (A) 5 %; Neutrophils % (A) 91 %; Platelet Count 320 k/uL (150-450); RBC 4.34 m/uL (4.30-5.90); RDW 12.8 % (11.5-15.5); WBC 14.2 k/uL (3.8-10.6)
[2020-07-23 04:50] LABS: Albumin 3.3 g/dL (3.5-5.0); C Reactive Protein 49.6 mg/L (<10.0); Calcium 8.7 mg/dL (8.4-10.2); Potassium 4.8 mmol/L (3.5-5.1); Total Bilirubin 0.7 mg/dL (0.2-1.3); Total Protein 6.3 g/dL (6.3-8.2)
--- NOTE | 2020-07-23 08:58 | XR ---
EXAMINATION TYPE: XR chest 1V portable DATE OF EXAM: 07/23/2020 Comparison: 07/22/2020 Clinical History: 80 year-old male shortness of breath Findings: Heart borderline enlarged. Patchy and confluent airspace disease peripheral and lower lungs persists without significant change. Impression: Persistent confluent airspace disease in the periphery and base of the lungs without significant [place] ge.
[2020-07-23] MEDS ORDERED: SUCCINYLCHOLINE CHLORIDE VIAL 200 MG/10 ML VIAL IV ONE (09:37)
[2020-07-23] MEDS ORDERED: PROPOFOL 10 MG/ML 20 ML VIAL IV ONE (09:37)
--- NOTE | 2020-07-23 10:25 | P.PN ---
Subjective HISTORY OF PRESENTING ILLNESS This is a pleasant 80-year-old male past medical history significant for coronary artery disease status post PCI to the RCA in 2010, hypertension and dyslipidemia. He follows in the office with Dr. Dr. Oropeza. The case was discussed with the nurse, no physical exam was performed due to acute COVID 19 infection. He has been confused all night and pulling at his oxygen and IV's. He continues to be in atrial fibrillation with controlled ventricular rates. Blood pressure 111/77 heart rate 84 afebrile and maintaining oxygen saturation on bipap. Currently maintained on Eliquis 5 mg twice a day, aspirin 81 mg daily, atorvastatin 40 mg daily, labetalol 200 mg twice a day and lisinopril 20 mg twice a day. Laboratory data reviewed, WBC 14.2, hemoglobin 13.7, platelets 320, sodium 143, potassium 4.8, creatinine 1.21. ASSESSMENT New-onset paroxysmal atrial fibrillation with controlled ventricular rate. Covid 19 Elevated troponin secondary to covid 19 and hyoxia causing a supply and demand mismatch, Type II myocardial injury.. Coronary artery disease status post PCI of the RCA in 2010 Hypertension with hypotension since admission Dyslipidemia PLAN Continue Eliquis for thromboembolic protection. Continue labetolol for rate control. We will follow along as needed, please call with further questions or concerns. Follow-up with Dr. Dr. Oropeza upon discharge. Nurse Practitioner note has been reviewed, I agree with a documented findings and plan of care. Patient was seen and examined. Objective - Vital Signs Vital signs: Vital Signs Temp 96.7 F L 07/23/20 04:00 Pulse 84 07/23/20 07:00 Resp 34 H 07/23/20 07:00 BP 111/77 07/23/20 07:00 Pulse Ox 89 L 07/23/20 07:00 Intake & Output 07/22/20 07/23/20 07/23/20 18:59 06:59 18:59 Intake Total 1322.078 550 50 Output Total 760 1210 80 Balance 562.078 -660 -30 Weight 139.4 kg Intake: IV 890 550 50 Sodium Chloride 0.9% 1, 890 550 50 000 ml @ 50 mls/hr IV . Q20H [facility] Rx#:[id number] Intake, IV Titration 312.078 Amount Heparin Sod,Pork in 0.45% 62.078 NaCl 25,000 unit In 0.45 % NaCl 1 250ml.bag @ 6. 889 UNITS/KG/HR 9.999 mls /hr IV .Q24H [facility] Rx#: [id number] Remdesivir (Eua) 100 mg 250 In Sodium Chloride 0.9% 250 ml @ 250 mls/hr IVPB DAILY@1800 [facility] Rx#: [id number] Oral 120 Output: Urine 760 1210 80 Other: Voiding Method Urinal Indwelling Catheter # Voids 1 - Labs CBC & Chem 7: 07/23/20 04:08 07/23/20 04:08 Labs: Abnormal Lab Results - Last 24 Hours (Table) 07/22/20 07/23/20 07/23/20 Range/Units 11: 04:08 04:08 WBC 14.2 H (3.8-10.6) k/uL Neutrophils # 13.0 H (1.3-7.7) k/uL Lymphocytes # 0.3 L (1.0-4.8) k/uL APTT 55.1 H (22.0-30.0) sec Chloride 112 H (98-107) mmol/L BUN 51 H (9-20) mg/dL Glucose 151 H (74-99) mg/dL Lactate Dehydrogenase 2117 H (313-618) U/L CK-MB (CK-2) (0.0-2.4) ng/mL C-Reactive Protein 49.6 H (<10.0) mg/L Albumin 3.3 L (3.5-5.0) g/dL 07/23/20 Range/Units 04:08 WBC (3.8-10.6) k/uL Neutrophils # (1.3-7.7) k/uL Lymphocytes # (1.0-4.8) k/uL APTT (22.0-30.0) sec Chloride (98-107) mmol/L BUN (9-20) mg/dL Glucose (74-99) mg/dL Lactate Dehydrogenase (313-618) U/L CK-MB (CK-2) 4.3 H (0.0-2.4) ng/mL C-Reactive Protein (<10.0) mg/L Albumin (3.5-5.0) g/dL Microbiology - Last 24 Hours (Table) 07/20/20 15:46 Blood Culture - Preliminary Blood No Growth after 48 hours
--- NOTE | 2020-07-23 10:29 | P.PN ---
Subjective Progress Note Date: 07/23/20 HISTORY OF PRESENT ILLNESS This is a 80-year-old male patient of Dr. Cerda with past medical history of coronary artery disease with previous stent placement, hypertension, hyperlipidemia, gastroesophageal reflux disease. Patient complains of shortness of breath, dry cough, increasing fatigue and weakness and dizziness that of an going on for the past 5 days. was also concerned the patient was more somnolent. 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 Patient has not had any fever. Temperature 90.9, heart rate 72, blood pressure 92/59, pulse ox 74% on room air. Patient was placed on a nonrebreather and that brought his pulse ox up to 90 max at 15 L. WBC 10.2, hemoglobin 14.6, platelet count 278. Lymphopenia at 0.7. D-dimer 5.42. Initial venous blood gas pH 7.52, pCO2 21, bicarb 17. BUN 16 creatinine 2.23, baseline is not known. Blood sugar 150. Initial lactic acid 2.2 with repeat 1.4. Ferritin 1596, total bilirubin 1.5, AST 77, ALT 50, alkaline phosphatase 52, LDH 2236. Troponin 0.128. C-reactive protein 202.3. ProBNP 1770. Pro-calcitonin 0.25. Coronavirus detected. Chest x-ray reveals bilateral infiltrate. EKG atrial fibrillation at a heart rate of 87. Patient was admitted to the cardiac stepdown unit and consult with primary medicine was placed and patient started on Remdesivir, Lovenox, dexamethasone and vitamins. Subsequently consult added for cardiology regarding atrial fibrillation and elevated troponins. 07/22: Patient remains in the intensive care unit but feels that breathing status is improved from yesterday. He is currently on high flow nasal cannula pulse oxing 89%. Patient appears to be comfortable at rest. 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 Eliquis cost has been checked by ed case manager $33. He has been afebrile, heart rate 82, blood pressure 103/74. Repeat blood work reveals WBC 11.8, hemoglobin 13. D-dimer 3.29. BUN 58 creatinine 1.34, CO2 18. Ferritin 1825, LDH 2065, C-reactive protein 78.7. Patient is currently on day #3/5 of Remdesivir course. IV heparin has been transitioned eliquis and continued on oral labetalol. 07/23: Patient had confusion this morning. Chest x-ray this morning revealed persistent confluent airspace disease in the periphery and base of the lungs without significant change. Pulse ox in the 80s with 100% BiPAP, respiratory rate 34. Patient was moved to a new room and prepared for intubation. He has been afebrile, heart rate 84, blood pressure 111/77. electrician yard has been atrial fibrillation with rate control. Cardiology has transitioned heparin drip to eliquis and have signed off his case. This morning, Zosyn added to his medications and he is on day 12/02 of Remdesivir. REVIEW OF SYSTEMS Unable to obtain due to intubation PHYSICAL EXAMINATION Physical examination deferred to pulmonary medicine due to Covid 19 and i ntubation need. ASSESSMENT AND PLAN 1. Acute hypoxic respiratory failure secondary to Covid 19 pneumonia, requiring intubation and mechanical ventilation. Pulmonary consult appreciated. 2. Metabolic encephalopathy secondary to Covid 19 pneumonia. Continue treatment for Covid 19 pneumonia. 3. Acute COVID-19 pneumonia. Continue Remdesivir date 12/02, dexamethasone 6 mg 3 times daily, vitamin supplements: Vitamin D, vitamin C, zinc, prone positioning. 4. New onset atrial fibrillation, rate controlled. Patient is currently on labetalol 200 mg twice daily, cardiology consult appreciated, heparin drip transitioned to eliquis. 5. Elevated troponin most likely secondary to Covid 19, ruled out non-ST elevated myocardial infarction. Cardiology consult appreciated. 6. Acute kidney injury. Baseline renal function is unknown. Continue fluids and recheck creatinine in the morning. 7. Lactic acidosis secondary to Covid 19, resolved. 8. History of coronary artery disease with previous stent in 2010. 9. Gastroesophageal reflux disease and GI prophylaxis. Pepcid. 10. Hyperlipidemia. Continue atorvastatin 10 mg at bedtime 11. Hypertension. Continue labetalol 200 mg twice daily, lisinopril 20 mg twice daily, Dyazide 1 daily. 12. Benign prostatic hypertrophy. Continue Proscar 5 mg daily. 13. DVT prophylaxis. Heparin drip. DISCHARGE PLAN To be determined. Impression and plan of care have been directed as dictated by the signing physician. Nichelle Dsouza nurse practitioner acting as scribe for signing physician. Objective - Vital Signs Vital signs: Vital Signs Temp 96.7 F L 07/23/20 04:00 Pulse 84 07/23/20 07:00 Resp 34 H 07/23/20 07:00 BP 111/77 07/23/20 07:00 Pulse Ox 89 L 07/23/20 07:00 Intake & Output 07/22/20 07/23/20 07/23/20 18:59 06:59 18:59 Intake Total 1322.078 550 50 Output Total 760 1210 80 Balance 562.078 -660 -30 Weight 139.4 kg Intake: IV 890 550 50 Sodium Chloride 0.9% 1, 890 550 50 000 ml @ 50 mls/hr IV . Q20H [facility] Rx#:[id number] Intake, IV Titration 312.078 Amount Heparin Sod,Pork in 0.45% 62.078 NaCl 25,000 unit In 0.45 % NaCl 1 250ml.bag @ 6. 889 UNITS/KG/HR 9.999 mls /hr IV .Q24H [facility] Rx#: [id number] Remdesivir (Eua) 100 mg 250 In Sodium Chloride 0.9% 250 ml @ 250 mls/hr IVPB DAILY@1800 [facility] Rx#: [id number] Oral 120 Output: Urine 760 1210 80 Other: Voiding Method Urinal Indwelling Catheter # Voids 1 - Labs CBC & Chem 7: 07/23/20 04:08 07/23/20 04:08 Labs: Abnormal Lab Results - Last 24 Hours (Table) 07/22/20 07/22/20 07/23/20 Range/Units 03:32 11:07 04:08 WBC 14.2 H (3.8-10.6) k/uL Neutrophils # 13.0 H (1.3-7.7) k/uL Lymphocytes # 0.3 L (1.0-4.8) k/uL APTT 55.1 H (22.0-30.0) sec Chloride (98-107) mmol/L BUN (9-20) mg/dL Glucose (74-99) mg/dL Ferritin 1825.4 H (22.0-322.0) ng/mL Lactate Dehydrogenase (313-618) U/L CK-MB (CK-2) (0.0-2.4) ng/mL C-Reactive Protein (<10.0) mg/L Albumin (3.5-5.0) g/dL 07/23/20 07/23/20 Range/Units 04:08 04:08 WBC (3.8-10.6) k/uL Neutrophils # (1.3-7.7) k/uL Lymphocytes # (1.0-4.8) k/uL APTT (22.0-30.0) sec Chloride 112 H (98-107) mmol/L BUN 51 H (9-20) mg/dL Glucose 151 H (74-99) mg/dL Ferritin (22.0-322.0) ng/mL Lactate Dehydrogenase 2117 H (313-618) U/L CK-MB (CK-2) 4.3 H (0.0-2.4) ng/mL C-Reactive Protein 49.6 H (<10.0) mg/L Albumin 3.3 L (3.5-5.0) g/dL Microbiology - Last 24 Hours (Table) 07/20/20 15:46 Blood Culture - Preliminary Blood No Growth after 48 hours
[2020-07-23 10:35] LABS: Ferritin 1670.7 ng/mL (22.0-322.0)
[2020-07-23] MEDS ORDERED: CISATRACURIUM 2 MG/ML 5 ML VIAL IV ONE (10:36)
--- NOTE | 2020-07-23 10:52 | XR ---
EXAMINATION TYPE: XR chest 1V portable DATE OF EXAM: 07/23/2020 CLINICAL HISTORY: ET tube placement. TECHNIQUE: Portable semiupright view of the chest. COMPARISON: 07/23/2020 6:12 AM chest radiograph FINDINGS: Interval placement of endotracheal tube with distal tip 2.4 cm from the kevin. Enteric tu be with nonvisualization of the distal tip. The cardiomediastinal silhouette is within normal limits for size. Patchy coarse opacities of the bilateral lungs, worse over the lung bases, or similar to co mparison at 6:12 AM. No pneumothorax seen. IMPRESSION: 1. Endotracheal tube distal tip 2.4 cm from the kevin. 2. Enteric tube with nonvisualization of the distal tip. 3. Unchanged bibasilar opacities.
--- NOTE | 2020-07-23 11:37 | XR ---
EXAMINATION TYPE: XR chest 1V portable DATE OF EXAM: 07/23/2020 Comparison: 07/23/2020 Clinical History: 80-year-old male Tube placement Findings: ET tube is satisfactory. Left IJ CVC tip at the mid SVC level. Heart mildly enlarged. Patchy and conf luent mid and lower lung opacities and suspected underlying small effusions persist. NG tube courses below the diaphragm but the distal aspect is out of the field of view. Impression: New left IJ CVC tip at the mid SVC level. Otherwise, unchanged exam.
[2020-07-23 11:41] LABS: Glucose,Whole Blood 136 mg/dL (75-99)
[2020-07-23 11:48] LABS: ABG HCO3 23 mmol/L (21-25); ABG PCO2 62 mmHg (35-45); ABG PO2 75 mmHg (83-108); ABG TCO2 24 mmol/L (19-24)
[2020-07-23 11:50] LABS: ABG PH 7.17 (7.35-7.45); Allen Test Performed? no
[2020-07-23] MEDS: LABETALOL 200 MG TAB PO SCH ×2 (11:54→20:30)
[2020-07-23] MEDS: lisinopriL 20 MG TAB PO SCH ×2 (11:54→20:29)
--- NOTE | 2020-07-23 12:01 | PCN ---
PROCEDURE NOTE PLACEMENT OF THE LEFT RADIAL ARTERIAL LINE. PREOPERATIVE DIAGNOSIS: Acute hypoxic respiratory failure. POSTOPERATIVE DIAGNOSIS: Acute hypoxic respiratory failure. ANESTHESIA USES: None deployed. PROCEDURE: The patient was placed in the supine position, the left wrist was prepared in a sterile fashion and drapes were applied. The left radial artery was palpated, cannulated easily and a guidewire was placed. A Cook catheter was inserted over the guidewire, the guidewire was removed. Good blood flow noted. No evidence of any immediate complications, good waveform noted. The line was secured using 3.0 silk sutures. MMODL / IJN: [id number] /
--- NOTE | 2020-07-23 12:09 | PCN ---
PROCEDURE NOTE PLACEMENT OF THE LEFT IJ CENTRAL LINE: PREOPERATIVE DIAGNOSIS: Acute hypoxic respiratory failure secondary to COVID-19 pneumonitis. POSTOPERATIVE DIAGNOSIS: Acute hypoxic respiratory failure secondary to COVID-19 pneumonitis. ANESTHESIA USED: 2 mL of 1% lidocaine. PROCEDURE: The patient was placed in a supine/semi-Trendelenburg position, the area of the left cervical region was prepared in a sterile fashion. Drapes were applied. The area behind the left sternocleidomastoid muscle was locally anesthetized. Then using the posterior approach, the left internal jugular vein was easily cannulated, a guidewire was placed, and an area around the guidewire was dilated with a dilator. Then a triple- lumen catheter was inserted over the guidewire, and the guidewire was removed. The line was secured using 3.0 silk sutures. The chest x-ray showed adequate placement of the left IJ central line, no evidence of any immediate complications. MMODL / IJN: [id number] /
--- NOTE | 2020-07-23 12:14 | P.PN ---
Subjective Progress Note Date: 07/23/20 Principal diagnosis: Acute hypoxic respiratory failure secondary to covid 19 pneumonitis This is a 80-year-old gentleman with a history of coronary artery disease with previous stent placement, gastroesophageal reflux disease, hyper lipidemia. He presents to the emergency room today with complaints of dizziness, fatigue, weakness. His is finding him quite somnolent. This is been going on for at least 5 days. He had a follow-up with his primary care physician and his cloud security architect who prescribed medication for vertigo. No reported fever. He has had increasing shortness of breath and a dry cough. Chest x-ray reveals evidence of moderate bilateral opacities predominantly in the mid to lower lungs. His presenting oxygen was 74% O2 saturation on room air. Temperature 90.9. He is been placed on 15 L nonrebreather maintaining O2 saturation of 89- 90%. White count 10.2. Hemoglobin 14.6. Lymphocytes 0.7. D-dimer 5.42. Sodium 138. Potassium 4.8. Creatinine 2.23. Lactic acid 2.2. Glucose 150. AST 77, ALT 50. LDH 2236. Troponin 0.128. C-reactive protein 202. ProBNP 1770. Briones virus by PCR positive. He's been initiated on a heparin drip. Resuscitated with 500 ML bolus. Currently on 0.9 normal saline at 130 ML's per hour. Received Decadron. Aspirin. He is seen today in consultation in the emergency room. Currently afebrile. 89% O2 saturation on 15 L nonrebreather. The patient seen today 07/21/2020 in follow-up on the selective care unit. He is currently awake and alert resting fairly comfortably in bed. He remains on 100% nonrebreather mask. He did have issues with atrial fibrillation which was new for the patient. He is currently on a heparin drip. He is also on day 2 of Remdesivir for his CoVID Pneumonia. White count 5.8. Hemoglobin 13.3. Lymphocytes 0.5. Sodium 141. Potassium 4.1. Creatinine 2.03. He remains on dexamethasone, vitamin C, vitamin D, Pepcid, zinc. 0.9 normal saline at 130 ML's per hour. Echocardiogram pending. Reevaluated today on 07/22/20, patient remains in the ICU, admitted on 07/20, presently on Airvo at 60 L/m, FiO2 of 90%, O2 saturation is marginal. IV fluid is at 50 mL per hour, patient received remdesivir and 1 unit of convalescent plasma. Patient developed new onset atrial fibrillation, he is on Eliquis, he is also on Decadron, and his overall pulmonary status is marginal. WBC count is 11.8 hemoglobin is 13 d-dimer is 3.29 lites are normal BUN is 58 creatinine 1.34. LDH is 2065, C-reactive protein is 78.7 Reevaluated today on 07/19/20, patient was noted to be doing poorly today, he has been on BiPAP overnight, even with on the percent of BiPAP with IPAP of 12 and EPAP of 6, patient was noted to have desaturations and has been continuously removing his BiPAP. ABG yesterday on BiPAP showed a pO2 of 53 pCO2 of 28 pH of 7.42. However clinically the patient was noted to be extremely restless, tachypneic, tachycardic this morning, I went ahead and recommended intubation of the patient. Patient was intubated, placed on assist control rate of 20, volume is 500 FiO2 is 100% PEEP is 8. An ABG is pending. Patient has been on full treatment for his Covid 19 pneumonitis. And no major improvement has been noted over the last few days. Chest x-ray continues to show multifocal bilateral infiltrates after intubating the patient, patient had left IJ central line placed, and a left radial arterial line was also placed. Objective - Vital Signs Vital signs: Vital Signs Temp 96.7 F L 07/23/20 04:00 Pulse 84 07/23/20 07:00 Resp 34 H 07/23/20 07:00 BP 111/77 07/23/20 07:00 Pulse Ox 89 L 07/23/20 07:00 Intake & Output 07/22/20 07/23/20 07/23/20 18:59 06:59 18:59 Intake Total 1322.078 550 50 Output Total 760 1210 80 Balance 562.078 -660 -30 Weight 139.4 kg Intake: IV 890 550 50 Sodium Chloride 0.9% 1, 890 550 50 000 ml @ 50 mls/hr IV . Q20H [facility] Rx#:[id number] Intake, IV Titration 312.078 Amount Heparin Sod,Pork in 0.45% 62.078 NaCl 25,000 unit In 0.45 % NaCl 1 250ml.bag @ 6. 889 UNITS/KG/HR 9.999 mls /hr IV .Q24H [facility] Rx#: [id number] Remdesivir (Eua) 100 mg 250 In Sodium Chloride 0.9% 250 ml @ 250 mls/hr IVPB DAILY@1800 [facility] Rx#: [id number] Oral 120 Output: Urine 760 1210 80 Other: Voiding Method Urinal Indwelling Catheter # Voids 1 - Exam GENERAL EXAM: 80-year-old anxious, restless,, on high FiO2 and on BiPAP. HEAD: Normocephalic. Atraumatic. EENT: PERRLA, EOMI, nonicteric.. No neck masses, no JVD. CHEST: No chest wall deformity. LUNGS: Equal air entry with bilateral rhonchi CVS: S1 and S2 normal with no audible murmur, irregular rhythm. ABDOMEN: No hepatosplenomegaly, normal bowel sounds, no guarding or rigidity. SPINE: No scoliosis or deformity SKIN: No rashes CENTRAL NERVOUS SYSTEM: Confused, restless, agitated, and in moderate respir atory distress. EXTREMITIES: There is no peripheral edema. No clubbing, no cyanosis. Peripheral pulses are intact. - Labs CBC & Chem 7: 07/23/20 04:08 07/23/20 04:08 Labs: Abnormal Lab Results - Last 24 Hours (Table) 07/22/20 07/23/20 07/23/20 Range/Units 11:07 04:08 04:08 WBC 14.2 H (3.8-10.6) k/uL Neutrophils # 13.0 H (1.3-7.7) k/uL Lymphocytes # 0.3 L (1.0-4.8) k/uL APTT 55.1 H (22.0-30.0) sec ABG pH (7.35-7.45) ABG pCO2 (35-45) mmHg ABG pO2 (83-108) mmHg ABG O2 Saturation (94-97) % Chloride 112 H (98-107) mmol/L BUN 51 H (9-20) mg/dL Glucose 151 H (74-99) mg/dL POC Glucose (mg/dL) (75-99) mg/dL Ferritin 1670.7 H (22.0-322.0) ng/mL Lactate Dehydrogenase 2117 H (313-618) U/L CK-MB (CK-2) (0.0-2.4) ng/mL C-Reactive Protein 49.6 H (<10.0) mg/L Albumin 3.3 L (3.5-5.0) g/dL 07/23/20 07/23/20 07/23/20 Range/Units 04:08 11:39 11:45 WBC (3.8-10.6) k/uL Neutrophils # (1.3-7.7) k/uL Lymphocytes # (1.0-4.8) k/uL APTT (22.0-30.0) sec ABG pH 7.17 L* (7.35-7.45) ABG pCO2 62 H (35-45) mmHg ABG pO2 75 L (83-108) mmHg ABG O2 Saturation 88.0 L (94-97) % Chloride (98-107) mmol/L BUN (9-20) mg/dL Glucose (74-99) mg/dL POC Glucose (mg/dL) 136 H (75-99) mg/dL Ferritin (22.0-322.0) ng/mL Lactate Dehydrogenase (313-618) U/L CK-MB (CK-2) 4.3 H (0.0-2.4) ng/mL C-Reactive Protein (<10.0) mg/L Albumin (3.5-5.0) g/dL Microbiology - Last 24 Hours (Table) 07/20/20 15:46 Blood Culture - Preliminary Blood No Growth after 48 hours Assessment and Plan Assessment: Impression: Acute hypoxic respiratory failure, patient required intubation and mechanical ventilation on 07/23/20, unable to be ventilated properly with BiPAP. Although he was on high FiO2 with IPAP of 12 and EPAP of 6. Acute covid 19 pneumonia History of coronary artery disease. Acute kidney injury New-onset atrial fibrillation on heparin, but will be transitioned to Eliquis. Recommendation: Immediate intubation and transitioning the patient now to mechanical ventilation off BiPAP. Continue present treatment plan Adjust ventilatory settings based on the blood gas.. Continue Decadron, melatonin, vitamins and zinc, Continue remdesivir Continue GI and DVT prophylaxis. Hemodynamic support if necessary, blood pressure is marginal, will try fluid boluses before starting norepinephrine. Continue to monitor in the ICU, prognosis is definitely poor and guarded, and obviously the patient is now critically ill. Critical care time is 34 minutes, not including the time spent on procedures. Time with Patient: Greater than 30
[2020-07-23] MEDS ORDERED: NOREPINEPHRIN 4 MG-0.9% NS PMX 4 MG/250 ML ML IV ONE (12:24)
[2020-07-23] MEDS ORDERED: SODIUM BICARB 8.4% 50 ML SYR (1 MEQ/ML) ONE (12:27)
[2020-07-23] MEDS ORDERED: SODIUM BICARB 8.4% 50 ML SYR (1 MEQ/ML) IV STA (12:28)
[2020-07-23] MEDS ORDERED: SODIUM CHLORIDE 0.9% 1,000 ML IV ONE (12:49)
[2020-07-23] MEDS: APIXABAN 5 MG TAB PO SCH ×2 (13:16→20:29)
[2020-07-23] MEDS: PIPERACILLIN-TAZOBACTAM 3.375 GM in SODIUM CHLORIDE 0.9% 100 ML IVPB SCH ×3 (13:16→20:29)
[2020-07-23] MEDS: DORZOLAMIDE-TIMOLOL 2.23%/0.68 10ML BTL BOTH EYES SCH ×2 (13:17→21:30)
[2020-07-23] MEDS: FAMOTIDINE 20 MG TAB PO SCH (13:17)
[2020-07-23] MEDS: ASPIRIN 81 MG PO SCH (13:17)
[2020-07-23] MEDS: dexAMETHasone 2 MG TAB PO SCH (13:17)
[2020-07-23] MEDS: CHOLECALCIFEROL 1,000 UNIT TAB PO SCH (13:18)
[2020-07-23] MEDS: FINASTERIDE 5 MG TAB PO SCH (13:18)
[2020-07-23] MEDS: ASCORBIC ACID 500 MG TAB PO SCH (13:18)
[2020-07-23] MEDS: ZINC SULFATE 220 MG CAP PO SCH (13:19)
[2020-07-23] MEDS: SODIUM CHLORIDE 0.9% 1,000 ML IV SCH (13:21)
[2020-07-23] MEDS: NOREPINEPHRINE 4 MG in SODIUM CHLORIDE 0.9% 250 ML IV SCH ×2 (16:00→19:56)
[2020-07-23 17:55] LABS: Glucose,Whole Blood 184 mg/dL (75-99)
[2020-07-23] MEDS: REMDESIVIR 100 MG in SODIUM CHLORIDE 0.9% 250 ML IVPB SCH (18:06)
[2020-07-23] MEDS: ATORVASTATIN 40 MG TAB PO SCH (20:29)
[2020-07-23] MEDS: MELATONIN 5 MG TABLET PO SCH (20:29)
[2020-07-23] MEDS: LATANOPROST 0.005% OPHTH DROPS 2.5 ML BTL BOTH EYES SCH (21:30)
--- NOTE | 2020-07-23 21:54 | PN ---
PROGRESS NOTE DATE OF SERVICE: 07/23/2020 REASON FOR FOLLOWUP: Acute COVID-19 pneumonia. INTERVAL HISTORY: The patient went into respiratory distress and ended up getting intubated. The patient is hemodynamically stable, not on any pressor support. FiO2 is currently 100%. No significant purulent secretions through the ET at the time of . No diarrhea reported by the nursing staff. PHYSICAL EXAMINATION: Blood pressure is 100/48 with a pulse of 87, temperature 98.2. He is 90% on 100% FiO2. General description is an elderly male, intubated on the vent. RESPIRATORY SYSTEM: Unlabored breathing with decreased breath sounds at the base. No wheeze. HEART: S1, S2. Regular rate and rhythm. ABDOMEN: Soft. No tenderness. LABS: Hemoglobin is 13.7, white count 14.2, BUN of 51, creatinine 1.21. DIAGNOSTIC IMPRESSION AND PLAN: Patient with acute respiratory failure which is likely multifactorial in this patient with underlying COVID-19 pneumonia. Patient is currently covered with dexamethasone, Eliquis, remdesivir. Zosyn has been added for possible aspiration pneumonia. Sputum culture will be requested. We will monitor his clinical course closely. Continue with supportive care. MMODL / IJN: [id number] /
[2020-07-23] MEDS ORDERED: ATROPINE SULFATE 0.1 MG/ML 10ML SYRINGE ONE (22:54)
[2020-07-23] MEDS: NOREPINEPHRINE 32 MG in SODIUM CHLORIDE 0.9% 218 ML IV SCH (23:27)
[2020-07-23 23:52] LABS: Basophils # (A) 0.1 k/uL (0-0.2); Basophils % (A) 1 %; Eosinophils % (A) 0 %; HCT 41.6 % (39.0-53.0); HGB 13.7 gm/dL (13.0-17.5); Lymphocytes # (A) 0.2 k/uL (1.0-4.8); Lymphocytes % (A) 1 %; MCH 32.3 pg (25.0-35.0); MCV 97.9 fL (80.0-100.0); Mean Platelet Volume 7.4; Monocytes # (A) 0.8 k/uL (0-1.0); Monocytes % (A) 5 %; Neutrophils # (A) 16.8 k/uL (1.3-7.7); Neutrophils % (A) 93 %; Platelet Count 186 k/uL (150-450); RBC 4.25 m/uL (4.30-5.90); RDW 13.4 % (11.5-15.5)
[2020-07-24 00:10] LABS: Albumin 3.1 g/dL (3.5-5.0); Calcium 7.9 mg/dL (8.4-10.2); Magnesium 2.8 mg/dL (1.6-2.3); Potassium 5.5 mmol/L (3.5-5.1)
[2020-07-24 01:29] LABS: ABG HCO3 22 mmol/L (21-25); ABG PCO2 55 mmHg (35-45); ABG PH 7.21 (7.35-7.45); ABG PO2 68 mmHg (83-108); ABG TCO2 24 mmol/L (19-24)
[2020-07-24 01:30] LABS: ABG Base Excess -5.8 mmol/L
[2020-07-24] MEDS ORDERED: CISATRACURIUM 2 MG/ML 5 ML VIAL IV ONE (02:10)
[2020-07-24] MEDS: CISATRACURIUM 200 MG in SODIUM CHLORIDE 0.9% 180 ML IV SCH ×2 (02:47→17:23)
--- NOTE | 2020-07-24 03:57 | XR ---
ADDENDUM - Added by Anita Muñiz M.D. on 07/24/2020 4:05 AM (-08:00) Compared to 07/23/20. Endotracheal tube has been retracted, the tip approximately 9 cm above the kevin. Feeding tube extends below the field of view, the side-port may be in the distal esophagus. EXAM: XR Chest, 1 View CLINICAL HISTORY: ITS.REASON XR Reason: check tube placement/ pt hypoxic TECHNIQUE: Frontal view of the chest. COMPARISON: 07/24/20 at 325. FINDINGS: Tubes and lines appear stable. Bilateral lung opacities, similar to prior. Additional findings not significantly changed. IMPRESSION: No significant interval change.
--- NOTE | 2020-07-24 04:04 | XR ---
EXAM: XR Chest, 1 View CLINICAL HISTORY: ITS.REASON XR Reason: check tube placement/ pt hypoxic TECHNIQUE: Frontal view of the chest. COMPARISON: 07/24/20 at 325. FINDINGS: Tubes and lines appear stable. Bilateral lung opacities, similar to prior. Additional findings not significantly changed. IMPRESSION: No significant interval change.
[2020-07-24] MEDS: ARTIFICIAL TEARS-HYPROMELLOSE DROPS 15 ML BTL BOTH EYES SCH ×5 (04:16→20:28)
[2020-07-24] MEDS: PIPERACILLIN-TAZOBACTAM 3.375 GM in SODIUM CHLORIDE 0.9% 100 ML IVPB SCH ×3 (04:17→22:07)
[2020-07-24 04:19] LABS: Basophils # (A) 0.1 k/uL (0-0.2); Basophils % (A) 0 %; Eosinophils % (A) 0 %; HGB 13.3 gm/dL (13.0-17.5); Hypochromasia Slight; Lymphocytes # (A) 0.3 k/uL (1.0-4.8); Lymphocytes % (A) 2 %; MCH 31.3 pg (25.0-35.0); MCHC 31.7 g/dL (31.0-37.0); MCV 98.7 fL (80.0-100.0); Mean Platelet Volume 7.6; Monocytes # (A) 0.8 k/uL (0-1.0); Monocytes % (A) 5 %; Neutrophils # (A) 17.2 k/uL (1.3-7.7); Neutrophils % (A) 93 %; Platelet Count 179 k/uL (150-450); RBC 4.26 m/uL (4.30-5.90); RDW 13.4 % (11.5-15.5); WBC 18.5 k/uL (3.8-10.6)
[2020-07-24 04:36] LABS: Potassium 5.3 mmol/L (3.5-5.1); Total Protein 5.8 g/dL (6.3-8.2)
[2020-07-24 04:46] LABS: D-Dimer >34.10 mg/L FEU (<0.60); Fibrinogen 192 mg/dL (200-500)
[2020-07-24 05:00] LABS: C Reactive Protein 137.7 mg/L (<10.0)
[2020-07-24] MEDS: INSULIN ASPART (NovoLOG) 100 UNIT/ML VIAL SQ SCH ×3 (05:22→19:03)
[2020-07-24 06:20] LABS: ABG Base Excess -5.1 mmol/L; ABG HCO3 23 mmol/L (21-25); ABG Oxygen Saturation 86.8 % (94-97); ABG PCO2 63 mmHg (35-45); ABG PO2 62 mmHg (83-108); ABG TCO2 25 mmol/L (19-24)
[2020-07-24 06:24] LABS: ABG PH 7.18 (7.35-7.45)
[2020-07-24] MEDS: SODIUM CHLORIDE 0.9% 1,000 ML IV SCH (06:59)
--- NOTE | 2020-07-24 07:07 | XR ---
EXAMINATION TYPE: XR chest 1V DATE OF EXAM: 07/24/2020 COMPARISON: 07/24/2020 HISTORY: SOB, Follow Up FINDINGS: Indwelling tubes and catheters are unchanged. Perihilar and basilar airspace infiltrates remain unchanged. Stable appearance of the cardio-mediastinal structures at this time. Pleural effusion unchanged. IMPRESSION: 1. Stable portable chest. Clinical correlation and follow up until resolution is recommended.
--- NOTE | 2020-07-24 07:59 | XR ---
EXAMINATION TYPE: XR chest 1V DATE OF EXAM: 07/24/2020 COMPARISON: 07/24/2020 HISTORY: SOB, Follow Up FINDINGS: Indwelling tubes and catheters are unchanged. Perihilar and basilar infiltrates persist without significant change. Stable appearance of the cardio-mediastinal structures at this time. IMPRESSION: 1. Stable portable chest. Clinical correlation and follow up until resolution is recommended.
[2020-07-24 09:39] LABS: ABG Base Excess -5.2 mmol/L; ABG HCO3 23 mmol/L (21-25); ABG Oxygen Saturation 89.1 % (94-97); ABG PCO2 62 mmHg (35-45); ABG PO2 66 mmHg (83-108); ABG TCO2 25 mmol/L (19-24)
[2020-07-24] MEDS ORDERED: SODIUM BICARB 8.4% 50 ML SYR (1 MEQ/ML) IV STA ×2 (09:40→09:42)
[2020-07-24] MEDS: LABETALOL 200 MG TAB PO SCH ×2 (09:44→20:28)
[2020-07-24 09:45] LABS: ABG PH 7.18 (7.35-7.45); Allen Test Performed? no
[2020-07-24] MEDS: lisinopriL 20 MG TAB PO SCH ×2 (09:45→20:29)
[2020-07-24] MEDS: dexAMETHasone 2 MG TAB PO SCH (09:49)
[2020-07-24] MEDS: APIXABAN 5 MG TAB PO SCH ×2 (09:49→20:33)
[2020-07-24] MEDS: ASPIRIN 81 MG PO SCH (09:49)
[2020-07-24] MEDS: FAMOTIDINE 20 MG TAB PO SCH (09:49)
[2020-07-24] MEDS: DORZOLAMIDE-TIMOLOL 2.23%/0.68 10ML BTL BOTH EYES SCH ×2 (09:50→20:28)
[2020-07-24] MEDS: NOREPINEPHRINE 4 MG in SODIUM CHLORIDE 0.9% 250 ML IV SCH (10:14)
[2020-07-24 11:32] LABS: Ferritin 1680.8 ng/mL (22.0-322.0)
[2020-07-24 12:10] LABS: Glucose,Whole Blood 155 mg/dL (75-99)
[2020-07-24] MEDS: NOREPINEPHRINE 32 MG in SODIUM CHLORIDE 0.9% 218 ML IV SCH (13:10)
--- NOTE | 2020-07-24 13:56 | P.PN ---
Subjective Progress Note Date: 07/24/20 HISTORY OF PRESENT ILLNESS This is a 80-year-old male patient of Dr. Cerda with past medical history of coronary artery disease with previous stent placement, hypertension, hyperlipidemia, gastroesophageal reflux disease. Patient complains of shortness of breath, dry cough, increasing fatigue and weakness and dizziness that of an going on for the past 5 days. was also concerned the patient was more somnolent. He had recently seen his primary care and engineer third assistant for same and was diagnosed with vertigo. Patient has not had any fever. Temperature 90.9, heart rate 72, blood pressure 92/59, pulse ox 74% on room air. Patient was placed on a nonrebreather and that brought his pulse ox up to 90 max at 15 L. WBC 10.2, hemoglobin 14.6, platelet count 278. Lymphopenia at 0.7. D-dimer 5.42. Initial venous blood gas pH 7.52, pCO2 21, bicarb 17. BUN 16 creatinine 2.23, baseline is not known. Blood sugar 150. Initial lactic acid 2.2 with repeat 1.4. Ferritin 1596, total bilirubin 1.5, AST 77, ALT 50, alkaline phosphatase 52, LDH 2236. Troponin 0.128. C-reactive protein 202.3. ProBNP 1770. Pro-calcitonin 0.25. Coronavirus detected. Chest x-ray reveals bilateral infiltrate. EKG atrial fibrillation at a heart rate of 87. Patient was admitted to the cardiac stepdown unit and consult with primary medicine was placed and patient started on Remdesivir, Lovenox, dexamethasone and vitamins. Subsequently consult added for cardiology regarding atrial fibrillation and elevated troponins. 07/22: Patient remains in the intensive care unit but feels that breathing status is improved from yesterday. He is currently on high flow nasal cannula pulse oxing 89%. Patient appears to be comfortable at rest. air sampling and monitoring remains atrial fibrillation. Eliquis cost has been checked by shoe parts caser $33. He has been afebrile, heart rate 82, blood pressure 103/74. Repeat blood work reveals WBC 11.8, hemoglobin 13. D-dimer 3.29. BUN 58 creatinine 1.34, CO2 18. Ferritin 1825, LDH 2065, C-reactive protein 78.7. Patient is currently on day #3/5 of Remdesivir course. IV heparin has been transitioned eliquis and continued on oral labetalol. 07/23: Patient had confusion this morning. Chest x-ray this morning revealed persistent confluent airspace disease in the periphery and base of the lungs without significant change. Pulse ox in the 80s with 100% BiPAP, respiratory rate 34. Patient was moved to a new room and prepared for intubation. He has been afebrile, heart rate 84, blood pressure 111/77. air sampling and monitoring has been atrial fibrillation with rate control. Cardiology has transitioned heparin drip to eliquis and have signed off his case. This morning, Zosyn added to his medications and he is on day 4/5 of Remdesivir. 07/24: Patient remains in intensive care unit on mechanical ventilation pulse oxing 86-88% with vent settings of tidal volume 500, FiO2 100, PEEP of 20. Repeat blood work reveals a CBC 18.5. Fibrinogen 192, d-dimer rate of than 34. Potassium 5.3, chloride 115, BUN 53 and creatinine 1.38. Ferritin level [id number], ALT 52, LDH 2366, C-reactive protein 137.7, pro-calcitonin 0.14. Repeat chest x-ray revealed stable portable chest. Perihilar and basilar infiltrates persist. Patient is currently on Nimbex, dexamethasone, norepinephrine, Remdesivir day #5/5, Zosyn. Patient's will be contacted later and provided update via phone. REVIEW OF SYSTEMS Unable to obtain due to intubation PHYSICAL EXAMINATION Gen: This is a 80-year-old male in the ICU bed. Patient is intubated and on mechanical ventilation. HEENT: Head is atraumatic, normocephalic. Pupils equal, round. Sclerae is anicteric. Oral ET tube NECK: Supple. No JVD. No lymphadenopathy. No thyromegaly. LUNGS: Bilateral rhonchi No intercostal retractions. HEART: Regular rate and rhythm. No murmur. ABDOMEN: Soft. Bowel sounds are present. No masses. No tenderness. EXTREMITIES: No pedal edema. No calf tenderness. NEUROLOGICAL: Patient is sedated. ASSESSMENT AND PLAN 1. Acute hypoxic respiratory failure secondary to Covid 19 pneumonia, requiring intubation and mechanical ventilation. Pulmonary consult appreciated. 2. Metabolic encephalopathy secondary to Covid 19 pneumonia. Continue treatment for Covid 19 pneumonia. 3. Acute COVID-19 pneumonia. Continue Remdesivir day 5/5, dexamethasone 6 mg daily, vitamin supplements: Vitamin D, vitamin C, zinc, prone positioning. 4. New onset atrial fibrillation, rate controlled. Patient is currently on labetalol 200 mg twice daily, cardiology consult appreciated, continue eliquis. 5. Elevated troponin most likely secondary to Covid 19, ruled out non-ST elevated myocardial infarction. Cardiology consult appreciated. 6. Acute kidney injury. Baseline renal function is unknown. Continue fluids and recheck creatinine in the morning. 7. Lactic acidosis secondary to Covid 19, resolved. 8. History of coronary artery disease with previous stent in 2010. 9. Gastroesophageal reflux disease and GI prophylaxis. Pepcid. 10. Hyperlipidemia. Continue atorvastatin 10 mg at bedtime 11. Hypertension. Continue labetalol 200 mg twice daily, lisinopril 20 mg twice daily, Dyazide 1 daily--- patient is currently hypotensive on levo fed. 12. Benign prostatic hypertrophy. Continue Proscar 5 mg daily. 13. DVT prophylaxis. Eliquis. CODE STATUS: Full code Prognosis guarded DISCHARGE PLAN To be determined. Impression and plan of care have been directed as dictated by the signing physician. Nichelle Dsouza nurse practitioner acting as scribe for signing physician. Objective - Vital Signs Vital signs: Vital Signs Temp 98.0 F 07/24/20 04:00 Pulse 86 07/24/20 08:10 Resp 31 H 07/24/20 08:10 BP 92/49 07/23/20 18:30 Pulse Ox 88 L 07/24/20 08:10 Intake & Output 07/23/20 07/24/20 07/24/20 18:59 06:59 18:59 Intake Total 2113.088 1878.954 408.421 Output Total 605 1035 255 Balance 1508.088 843.954 153.421 Weight 139.4 kg 144.6 kg Intake: IV 550 783 159 Piperacillin-Tazobactam 3 200 .375 gm In Sodium Chloride 0.9% 100 ml @ 25 mls/hr IVPB Q8H [facility] Rx#: [id number] Sodium Chloride 0.9% 1, 550 550 150 000 ml @ 50 mls/hr IV . Q20H [facility] Rx#:[id number] pressure bag 33 9 Intake, IV Titration 1563.088 895.954 169.421 Amount Cisatracurium 200 mg In 20.352 69.421 Sodium Chloride 0.9% 180 ml @ 1 MCG/KG/MIN 8.364 mls/hr IV .[id number] [facility] Rx #:[id number] Norepinephrine 32 mg In 5.717 Sodium Chloride 0.9% 218 ml @ 0.05 MCG/KG/MIN 3. 267 mls/hr IV .Q24H [facility] Rx#:[id number] Norepinephrine 4 mg In 13.278 488.754 Sodium Chloride 0.9% 250 ml @ 0.05 MCG/KG/MIN 26. 556 mls/hr IV .Q9H34M [facility] Rx#:[id number] Piperacillin-Tazobactam 3 100 .375 gm In Sodium Chloride 0.9% 100 ml @ 25 mls/hr IVPB Q8H [facility] Rx#: [id number] Remdesivir (Eua) 100 mg 250 In Sodium Chloride 0.9% 250 ml @ 250 mls/hr IVPB DAILY@1800 [facility] Rx#: [id number] Sodium Chloride 0.9% 1, 1000 000 ml @ 999 mls/hr IV . Q1H1M [facility] Rx#:[id number] propofoL 1,000 mg In 199.81 381.131 100.000 Empty Bag 1 bag @ Titrate IV .Q0M [facility] Rx#: [id number] Tube Feeding 140 80 Other 60 Output: Urine 605 1035 255 Other: Voiding Method Indwelling Catheter Indwelling Catheter ABP, PAP, CO, CI - Last Documented Arterial Blood Pressure 100/51 - Labs CBC & Chem 7: 07/24/20 04:00 07/24/20 04:00 Labs: Abnormal Lab Results - Last 24 Hours (Table) 07/23/20 07/23/20 07/23/20 Range/Units 04:08 11:39 11:45 WBC (3.8-10.6) k/uL RBC (4.30-5.90) m/uL Neutrophils # (1.3-7.7) k/uL Lymphocytes # (1.0-4.8) k/uL Fibrinogen (200-500) mg/dL D-Dimer (<0.60) mg/L FEU ABG pH 7.17 L* (7.35-7.45) ABG pCO2 62 H (35-45) mmHg ABG pO2 75 L (83-108) mmHg ABG Total CO2 (19-24) mmol/L ABG O2 Saturation 88.0 L (94-97) % Potassium (3.5-5.1) mmol/L Chloride (98-107) mmol/L BUN (9-20) mg/dL Creatinine (0.66-1.25) mg/dL Glucose (74-99) mg/dL POC Glucose (mg/dL) 136 H (75-99) mg/dL Calcium (8.4-10.2) mg/dL Magnesium (1.6-2.3) mg/dL Ferritin 1670.7 H (22.0-322.0) ng/mL ALT (4-49) U/L Lactate Dehydrogenase (313-618) U/L C-Reactive Protein (<10.0) mg/L Total Protein (6.3-8.2) g/dL Albumin (3.5-5.0) g/dL 07/23/20 07/23/20 07/23/20 Range/Units 17:53 23:35 23:35 WBC 18.0 H (3.8-10.6) k/uL RBC 4.25 L (4.30-5.90) m/uL Neutrophils # 16.8 H (1.3-7.7) k/uL Lymphocytes # 0.2 L (1.0-4.8) k/uL Fibrinogen (200-500) mg/dL D-Dimer (<0.60) mg/L FEU ABG pH (7.35-7.45) ABG pCO2 (35-45) mmHg ABG pO2 (83-108) mmHg ABG Total CO2 (19-24) mmol/L ABG O2 Saturation (94-97) % Potassium 5.5 H (3.5-5.1) mmol/L Chloride 115 H (98-107) mmol/L BUN 56 H (9-20) mg/dL Creatinine 1.41 H (0.66-1.25) mg/dL Glucose 198 H (74-99) mg/dL POC Glucose (mg/dL) 184 H (75-99) mg/dL Calcium 7.9 L (8.4-10.2) mg/dL Magnesium 2.8 H (1.6-2.3) mg/dL Ferritin (22.0-322.0) ng/mL ALT 54 H (4-49) U/L Lactate Dehydrogenase (313-618) U/L C-Reactive Protein (<10.0) mg/L Total Protein 6.0 L (6.3-8.2) g/dL Albumin 3.1 L (3.5-5.0) g/dL 07/24/20 07/24/20 07/24/20 Range/Units 01:18 04:00 04:00 WBC (3.8-10.6) k/uL RBC (4.30-5.90) m/uL Neutrophils # (1.3-7.7) k/uL Lymphocytes # (1.0-4.8) k/uL Fibrinogen 192 L (200-500) mg/dL D-Dimer >34.10 H (<0.60) mg/L FEU ABG pH 7.21 L (7.35-7.45) ABG pCO2 55 H (35-45) mmHg ABG pO2 68 L (83-108) mmHg ABG Total CO2 (19-24) mmol/L ABG O2 Saturation 89.0 L (94-97) % Potassium 5.3 H (3.5-5.1) mmol/L Chloride 115 H (98-107) mmol/L BUN 53 H (9-20) mg/dL Creatinine 1.38 H (0.66-1.25) mg/dL Glucose 186 H (74-99) mg/dL POC Glucose (mg/dL) (75-99) mg/dL Calcium 8.0 L (8.4-10.2) mg/dL Magnesium (1.6-2.3) mg/dL Ferritin (22.0-322.0) ng/mL ALT 52 H (4-49) U/L Lactate Dehydrogenase 2366 H (313-618) U/L C-Reactive Protein 137.7 H (<10.0) mg/L Total Protein 5.8 L (6.3-8.2) g/dL Albumin 3.0 L (3.5-5.0) g/dL 07/24/20 07/24/20 07/24/20 Range/Units 04:00 06:10 09:37 WBC 18.5 H (3.8-10.6) k/uL RBC 4.26 L (4.30-5.90) m/uL Neutrophils # 17.2 H (1.3-7.7) k/uL Lymphocytes # 0.3 L (1.0-4.8) k/uL Fibrinogen (200-500) mg/dL D-Dimer (<0.60) mg/L FEU ABG pH 7.18 L* 7.18 L* (7.35-7.45) ABG pCO2 63 H 62 H (35-45) mmHg ABG pO2 62 L 66 L (83-108) mmHg ABG Total CO2 25 H 25 H (19-24) mmol/L ABG O2 Saturation 86.8 L 89.1 L (94-97) % Potassium (3.5-5.1) mmol/L Chloride (98-107) mmol/L BUN (9-20) mg/dL Creatinine (0.66-1.25) mg/dL Glucose (74-99) mg/dL POC Glucose (mg/dL) (75-99) mg/dL Calcium (8.4-10.2) mg/dL Magnesium (1.6-2.3) mg/dL Ferritin (22.0-322.0) ng/mL ALT (4-49) U/L Lactate Dehydrogenase (313-618) U/L C-Reactive Protein (<10.0) mg/L Total Protein (6.3-8.2) g/dL Albumin (3.5-5.0) g/dL Microbiology - Last 24 Hours (Table) 07/23/20 21:03 Gram Stain - Preliminary Sputum Sputum Culture - Preliminary 07/20/20 15:46 Blood Culture - Preliminary Blood No Growth after 72 hours
[2020-07-24 14:25] LABS: ABG PO2 53 mmHg (83-108)
--- NOTE | 2020-07-24 14:32 | P.PN ---
Subjective Progress Note Date: 07/24/20 Principal diagnosis: Acute hypoxic respiratory failure secondary to covid 19 pneumonitis This is a 80-year-old gentleman with a history of coronary artery disease with previous stent placement, gastroesophageal reflux disease, hyper lipidemia. He presents to the emergency room today with complaints of dizziness, fatigue, weakness. His is finding him quite somnolent. This is been going on for at least 5 days. 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 No reported fever. He has had increasing shortness of breath and a dry cough. Chest x-ray reveals evidence of moderate bilateral opacities predominantly in the mid to lower lungs. His presenting oxygen was 74% O2 saturation on room air. Temperature 90.9. He is been placed on 15 L nonrebreather maintaining O2 saturation of 89- 90%. White count 10.2. Hemoglobin 14.6. Lymphocytes 0.7. D-dimer 5.42. Sodium 138. Potassium 4.8. Creatinine 2.23. Lactic acid 2.2. Glucose 150. AST 77, ALT 50. LDH 2236. Troponin 0.128. C-reactive protein 202. ProBNP 1770. Briones virus by PCR positive. He's been initiated on a heparin drip. Resuscitated with 500 ML bolus. Currently on 0.9 normal saline at 130 ML's per hour. Received Decadron. Aspirin. He is seen today in consultation in the emergency room. Currently afebrile. 89% O2 saturation on 15 L nonrebreather. The patient seen today 07/21/2020 in follow-up on the selective care unit. He is currently awake and alert resting fairly comfortably in bed. He remains on 100% nonrebreather mask. He did have issues with atrial fibrillation which was new for the patient. He is currently on a heparin drip. He is also on day 2 of Remdesivir for his CoVID Pneumonia. White count 5.8. Hemoglobin 13.3. Lymphocytes 0.5. Sodium 141. Potassium 4.1. Creatinine 2.03. He remains on dexamethasone, vitamin C, vitamin D, Pepcid, zinc. 0.9 normal saline at 130 ML's per hour. Echocardiogram pending. Reevaluated today on 07/22/20, patient remains in the ICU, admitted on 07/20, presently on Airvo at 60 L/m, FiO2 of 90%, O2 saturation is marginal. IV fluid is at 50 mL per hour, patient received remdesivir and 1 unit of convalescent plasma. Patient developed new onset atrial fibrillation, he is on Eliquis, he is also on Decadron, and his overall pulmonary status is marginal. WBC count is 11.8 hemoglobin is 13 d-dimer is 3.29 lites are normal BUN is 58 creatinine 1.34. LDH is 2065, C-reactive protein is 78.7 Reevaluated today on 07/23/20, patient was noted to be doing poorly today, he has been on BiPAP overnight, 100 percent FiO2, BiPAP with IPAP of 12 and EPAP of 6, patient was noted to have desaturations and has been continuously removing his BiPAP. ABG yesterday on BiPAP showed a pO2 of 53 pCO2 of 28 pH of 7.42. However clinically the patient was noted to be extremely restless, tachypneic, tachycardic this morning, I went ahead and recommended intubation of the patient. Patient was intubated, placed on assist control rate of 20, volume is 500 FiO2 is 100% PEEP is 8. An ABG is pending. Patient has been on full treatment for his Covid 19 pneumonitis. And no major improvement has been noted over the last few days. Chest x-ray continues to show multifocal bilateral infiltrates after intubating the patient, patient had left IJ central line placed, and a left radial arterial line was also placed. Reevaluated today on 07/24/20, patient remains on mechanical ventilation, patient was intubated on 07/22/20, patient is developing ARDS, chest x-ray continues to show diffuse interstitial infiltrates. Patient has very poor ABG in spite of high FiO2 and high PEEP. Today's ABG showed a pO2 of 66 pCO2 of 61 pH of 7.18, hence tidal volume was increased, and the patient received 1 amp of bicarb. Presently he is on the percent FiO2, PEEP was increased to 20, rate increased to 34, and we will attempt to place the patient in the prone position today. Nurses had issues with his endotracheal tube last night, patient had to be reintubated by anesthesia. And the endotracheal tube was changed. Patient remains on propofol at 55 mcg/kg/m, norepinephrine at 0.2 mcg/kg/m, Nimbex at 1.5 mcg/kg/m. IV fluid is at 50 mL per hour. Chest x-ray this morning showed adequate placement of the endotracheal tube, again bilateral infiltrates noted. Nutrition-romero, the patient is on enteral feeding. At Objective - Vital Signs Vital signs: Vital Signs Temp 98.0 F 07/24/20 04:00 Pulse 86 07/24/20 08:10 Resp 31 H 07/24/20 08:10 BP 92/49 07/23/20 18:30 Pulse Ox 88 L 07/24/20 08:10 Intake & Output 07/23/20 07/24/20 07/24/20 18:59 06:59 18:59 Intake Total 2113.088 1878.954 837.733 Output Total 605 1035 335 Balance 1508.088 843.954 502.733 Weight 139.4 kg 144.6 kg Intake: IV 550 783 265 Piperacillin-Tazobactam 3 200 .375 gm In Sodium Chloride 0.9% 100 ml @ 25 mls/hr IVPB Q8H [facility] Rx#: [id number] Sodium Chloride 0.9% 1, 550 550 250 000 ml @ 50 mls/hr IV . Q20H [facility] Rx#:[id number] pressure bag 33 15 Intake, IV Titration 1563.088 895.954 452.733 Amount Cisatracurium 200 mg In 20.352 69.421 Sodium Chloride 0.9% 180 ml @ 1 MCG/KG/MIN 8.364 mls/hr IV .[id number] [facility] Rx #:[id number] Norepinephrine 32 mg In 5.717 134.003 Sodium Chloride 0.9% 218 ml @ 0.05 MCG/KG/MIN 3. 267 mls/hr IV .Q24H [facility] Rx#:[id number] Norepinephrine 4 mg In 13.278 488.754 Sodium Chloride 0.9% 250 ml @ 0.05 MCG/KG/MIN 26. 556 mls/hr IV .[id number] [facility] Rx#:[id number] Piperacillin-Tazobactam 3 100 .375 gm In Sodium Chloride 0.9% 100 ml @ 25 mls/hr IVPB Q8H [facility] Rx#: [id number] Remdesivir (Eua) 100 mg 250 In Sodium Chloride 0.9% 250 ml @ 250 mls/hr IVPB DAILY@1800 [facility] Rx#: [id number] Sodium Chloride 0.9% 1, 1000 000 ml @ 999 mls/hr IV . Q1H1M [facility] Rx#:[id number] propofoL 1,000 mg In 199.81 381.131 249.309 Empty Bag 1 bag @ Titrate IV .Q0M [facility] Rx#: [id number] Tube Feeding 140 120 Other 60 Output: Urine 605 1035 335 Other: Voiding Method Indwelling Catheter Indwelling Catheter ABP, PAP, CO, CI - Last Documented Arterial Blood Pressure 100/51 - Exam GENERAL EXAM: 80-year-old , intubated, sedated, and paralyzed. HEAD: Normocephalic. Atraumatic. EENT: PERRLA, EOMI, nonicteric.. No neck masses, no JVD. CHEST: No chest wall deformity. LUNGS: Crackles and rhonchi noted bilaterally. CVS: S1 and S2 normal with no audible murmur, irregular rhythm. ABDOMEN: No hepatosplenomegaly, normal bowel sounds, no guarding or rigidity. SPINE: No scoliosis or deformity SKIN: No rashes CENTRAL NERVOUS SYSTEM: Could not assess, patient is sedated and paralyzed. Psychiatric: Could not assess EXTREMITIES: There is no peripheral edema. No clubbing, no cyanosis. Peripheral pulses are intact. - Labs CBC & Chem 7: 07/24/20 04:00 07/24/20 04:00 Labs: Abnormal Lab Results - Last 24 Hours (Table) 07/23/20 07/23/20 07/23/20 Range/Units 17:53 23:35 23:35 WBC 18.0 H (3.8-10.6) k/uL RBC 4.25 L (4.30-5.90) m/uL Neutrophils # 16.8 H (1.3-7.7) k/uL Lymphocytes # 0.2 L (1.0-4.8) k/uL Fibrinogen (200-500) mg/dL D-Dimer (<0.60) mg/L FEU ABG pH (7.35-7.45) ABG pCO2 (35-45) mmHg ABG pO2 (83-108) mmHg ABG Total CO2 (19-24) mmol/L ABG O2 Saturation (94-97) % Potassium 5.5 H (3.5-5.1) mmol/L Chloride 115 H (98-107) mmol/L BUN 56 H (9-20) mg/dL Creatinine 1.41 H (0.66-1.25) mg/dL Glucose 198 H (74-99) mg/dL POC Glucose (mg/dL) 184 H (75-99) mg/dL Calcium 7.9 L (8.4-10.2) mg/dL Magnesium 2.8 H (1.6-2.3) mg/dL Ferritin (22.0-322.0) ng/mL ALT 54 H (4-49) U/L Lactate Dehydrogenase (313-618) U/L C-Reactive Protein (<10.0) mg/L Total Protein 6.0 L (6.3-8.2) g/dL Albumin 3.1 L (3.5-5.0) g/dL Procalcitonin (0.02-0.09) ng/mL 07/24/20 07/24/20 07/24/20 Range/Units 01:18 04:00 04:00 WBC (3.8-10.6) k/uL RBC (4.30-5.90) m/uL Neutrophils # (1.3-7.7) k/uL Lymphocytes # (1.0-4.8) k/uL Fibrinogen (200-500) mg/dL D-Dimer (<0.60) mg/L FEU ABG pH 7.21 L (7.35-7.45) ABG pCO2 55 H (35-45) mmHg ABG pO2 68 L (83-108) mmHg ABG Total CO2 (19-24) mmol/L ABG O2 Saturation 89.0 L (94-97) % Potassium 5.3 H (3.5-5.1) mmol/L Chloride 115 H (98-107) mmol/L BUN 53 H (9-20) mg/dL Creatinine 1.38 H (0.66-1.25) mg/dL Glucose 186 H (74-99) mg/dL POC Glucose (mg/dL) (75-99) mg/dL Calcium 8.0 L (8.4-10.2) mg/dL Magnesium (1.6-2.3) mg/dL Ferritin 1680.8 H (22.0-322.0) ng/mL ALT 52 H (4-49) U/L Lactate Dehydrogenase 2366 H (313-618) U/L C-Reactive Protein 137.7 H (<10.0) mg/L Total Protein 5.8 L (6.3-8.2) g/dL Albumin 3.0 L (3.5-5.0) g/dL Procalcitonin 0.14 H (0.02-0.09) ng/mL 07/24/20 07/24/20 07/24/20 Range/Units 04:00 04:00 06:10 WBC 18.5 H (3.8-10.6) k/uL RBC 4.26 L (4.30-5.90) m/uL Neutrophils # 17.2 H (1.3-7.7) k/uL Lymphocytes # 0.3 L (1.0-4.8) k/uL Fibrinogen 192 L (200-500) mg/dL D-Dimer >34.10 H (<0.60) mg/L FEU ABG pH 7.18 L* (7.35-7.45) ABG pCO2 63 H (35-45) mmHg ABG pO2 62 L (83-108) mmHg ABG Total CO2 25 H (19-24) mmol/L ABG O2 Saturation 86.8 L (94-97) % Potassium (3.5-5.1) mmol/L Chloride (98-107) mmol/L BUN (9-20) mg/dL Creatinine (0.66-1.25) mg/dL Glucose (74-99) mg/dL POC Glucose (mg/dL) (75-99) mg/dL Calcium (8.4-10.2) mg/dL Magnesium (1.6-2.3) mg/dL Ferritin (22.0-322.0) ng/mL ALT (4-49) U/L Lactate Dehydrogenase (313-618) U/L C-Reactive Protein (<10.0) mg/L Total Protein (6.3-8.2) g/dL Albumin (3.5-5.0) g/dL Procalcitonin (0.02-0.09) ng/mL 07/24/20 07/24/20 Range/Units 09:37 12:09 WBC (3.8-10.6) k/uL RBC (4.30-5.90) m/uL Neutrophils # (1.3-7.7) k/uL Lymphocytes # (1.0-4.8) k/uL Fibrinogen (200-500) mg/dL D-Dimer (<0.60) mg/L FEU ABG pH 7.18 L* (7.35-7.45) ABG pCO2 62 H (35-45) mmHg ABG pO2 66 L (83-108) mmHg ABG Total CO2 25 H (19-24) mmol/L ABG O2 Saturation 89.1 L (94-97) % Potassium (3.5-5.1) mmol/L Chloride (98-107) mmol/L BUN (9-20) mg/dL Creatinine (0.66-1.25) mg/dL Glucose (74-99) mg/dL POC Glucose (mg/dL) 155 H (75-99) mg/dL Calcium (8.4-10.2) mg/dL Magnesium (1.6-2.3) mg/dL Ferritin (22.0-322.0) ng/mL ALT (4-49) U/L Lactate Dehydrogenase (313-618) U/L C-Reactive Protein (<10.0) mg/L Total Protein (6.3-8.2) g/dL Albumin (3.5-5.0) g/dL Procalcitonin (0.02-0.09) ng/mL Microbiology - Last 24 Hours (Table) 07/23/20 21:03 Gram Stain - Preliminary Sputum Sputum Culture - Preliminary 07/20/20 15:46 Blood Culture - Preliminary Blood No Growth after 72 hours Assessment and Plan Assessment: Impression: Acute hypoxic respiratory failure, patient required intubation and mechanical ventilation on 07/23/20, he shouldn't is requiring significantly high FiO2 and high PEEP. Hence we'll consider placing patient in prone position to improve oxygenation. Acute covid 19 pneumonia and ARDS. History of coronary artery disease. Acute kidney injury New-onset atrial fibrillation on, on Eliquis. Recommendation: Continue ventilatory support. Continue hemodynamic support. Continue nutritional support. GI and DVT prophylaxis. Continue high FiO2 and high PEEP, and now we will place the patient in prone position to achieve adequate oxygenation possible. Continue Decadron, melatonin, vitamins and zinc, Patient did receive remdesivir Continue remdesivir Continue GI and DVT prophylaxis. Continue to monitor in the ICU, prognosis is definitely poor and guarded, and obviously the patient is now critically ill. Critical care time is 35 minutes, not including the time spent on procedures. Time with Patient: Greater than 30
[2020-07-24 14:47] VITALS: BMI 39.8
[2020-07-24] MEDS: ASCORBIC ACID 500 MG TAB PO SCH (16:51)
[2020-07-24] MEDS: ZINC SULFATE 220 MG CAP PO SCH (16:51)
[2020-07-24] MEDS: CHOLECALCIFEROL 1,000 UNIT TAB PO SCH (16:51)
[2020-07-24] MEDS: FINASTERIDE 5 MG TAB PO SCH (16:52)
[2020-07-24 17:51] LABS: Glucose,Whole Blood 181 mg/dL (75-99)
[2020-07-24] MEDS: REMDESIVIR 100 MG in SODIUM CHLORIDE 0.9% 250 ML IVPB SCH (19:50)
[2020-07-24] MEDS: LATANOPROST 0.005% OPHTH DROPS 2.5 ML BTL BOTH EYES SCH (20:28)
[2020-07-24] MEDS: MELATONIN 5 MG TABLET PO SCH (20:29)
[2020-07-24] MEDS: ATORVASTATIN 40 MG TAB PO SCH (20:33)
[2020-07-24] MEDS: CHLORHEXIDINE GLUCONATE 15 ML CUP MUCOUS MEM SCH (20:50)
[2020-07-24 23:00] LABS: Glucose,Whole Blood 169 mg/dL (75-99)
--- NOTE | 2020-07-24 23:36 | PN ---
PROGRESS NOTE DATE OF SERVICE: 07/24/2020 REASON FOR FOLLOWUP: Acute COVID-19 pneumonia. INTERVAL HISTORY: The patient is currently afebrile. The patient went into respiratory distress and ended up getting intubated. He is currently on 100% FiO2. Borderline blood pressure. No significant purulent secretions through the ET or any diarrhea reported by the nursing staff. PHYSICAL EXAMINATION: Blood pressure 102/57 with a pulse of 103, temperature 98. He is 97% on 100% FiO2. General description is an elderly male, intubated on the vent. RESPIRATORY SYSTEM: Unlabored breathing with decreased breath sounds per nursing staff. EXTREMITIES: No edema of the feet. LABS: Hemoglobin is 13.3, white count 18.5. D-dimer is more than 24. BUN of 53, creatinine 1.38. Ferritin, LDH and CRP are elevated. Sputum so far negative. Blood culture negative. DIAGNOSTIC IMPRESSION AND PLAN: Patient with acute respiratory failure which is multifactorial in this patient who did have underlying COVID-19 pneumonia with worsening of respiratory status, unable to patient is currently on dexamethasone, remdesivir his 5 doses. Zosyn has been added. Sputum culture will be requested. Clinical course will be monitored closely. Continue with supportive care. MMODL / IJN: [id number] /
[2020-07-25] MEDS: ARTIFICIAL TEARS-HYPROMELLOSE DROPS 15 ML BTL BOTH EYES SCH ×4 (00:07→12:59)
[2020-07-25] MEDS: INSULIN ASPART (NovoLOG) 100 UNIT/ML VIAL SQ SCH ×3 (00:07→12:59)
[2020-07-25] MEDS: NOREPINEPHRINE 32 MG in SODIUM CHLORIDE 0.9% 218 ML IV SCH ×3 (02:56→11:27)
[2020-07-25] MEDS: SODIUM CHLORIDE 0.9% 1,000 ML IV SCH ×2 (02:57→09:30)
[2020-07-25] MEDS ORDERED: SODIUM CHLORIDE 0.9% 1,000 ML IV ONE ×3 (03:28→10:23)
[2020-07-25 04:21] LABS: Basophils # (A) 0.1 k/uL (0-0.2); Basophils % (A) 1 %; Eosinophils % (A) 0 %; HCT 40.6 % (39.0-53.0); Hypochromasia Slight; Lymphocytes # (A) 0.3 k/uL (1.0-4.8); Lymphocytes % (A) 2 %; MCH 31.7 pg (25.0-35.0); MCHC 32.1 g/dL (31.0-37.0); MCV 98.7 fL (80.0-100.0); Mean Platelet Volume 9.2; Monocytes # (A) 0.9 k/uL (0-1.0); Monocytes % (A) 5 %; Neutrophils # (A) 17.9 k/uL (1.3-7.7); Neutrophils % (A) 93 %; Platelet Count 135 k/uL (150-450); RBC 4.11 m/uL (4.30-5.90); RDW 13.5 % (11.5-15.5); WBC 19.3 k/uL (3.8-10.6)
[2020-07-25 04:46] LABS: Fibrinogen 351 mg/dL (200-500)
[2020-07-25 04:54] LABS: ABG Base Excess -6.4 mmol/L; ABG HCO3 23 mmol/L (21-25); ABG Oxygen Saturation 97.3 % (94-97); ABG PCO2 69 mmHg (35-45); ABG PO2 245 mmHg (83-108); ABG TCO2 25 mmol/L (19-24); Allen Test Performed? Yes
[2020-07-25 04:57] LABS: ABG PH 7.13 (7.35-7.45)
[2020-07-25 05:10] LABS: D-Dimer >34.10 mg/L FEU (<0.60)
[2020-07-25 05:39] LABS: Albumin 2.5 g/dL (3.5-5.0); Calcium 7.6 mg/dL (8.4-10.2); Potassium 5.3 mmol/L (3.5-5.1); Total Bilirubin 0.8 mg/dL (0.2-1.3); Total Protein 5.3 g/dL (6.3-8.2)
[2020-07-25] MEDS: PIPERACILLIN-TAZOBACTAM 3.375 GM in SODIUM CHLORIDE 0.9% 100 ML IVPB SCH ×2 (05:54→13:45)
[2020-07-25] MEDS: SODIUM CHLORIDE 0.9% 50 ML with VASOPRESSIN 20 UNIT IVPB SCH ×4 (06:02→13:18)
[2020-07-25 06:14] LABS: C Reactive Protein 218.6 mg/L (<10.0)
[2020-07-25] MEDS: ACETAMINOPHEN TAB 325 MG TAB PO PRN ×2 (06:59→15:12)
--- NOTE | 2020-07-25 07:25 | XR ---
EXAMINATION TYPE: XR chest 1V portable DATE OF EXAM: 07/25/2020 COMPARISON: 07/24/2020 HISTORY: SOB, Follow Up FINDINGS: Indwelling tubes and catheters are unchanged. Unchanged are bilateral perihilar and lower lobe infiltrates. Stable appearance of the cardio-mediastinal structures at this time. IMPRESSION: 1. Stable portable chest. Clinical correlation and follow up until resolution is recommended.
[2020-07-25] MEDS: dexAMETHasone 2 MG TAB PO SCH (08:10)
[2020-07-25] MEDS: APIXABAN 5 MG TAB PO SCH (08:11)
[2020-07-25] MEDS: ASPIRIN 81 MG PO SCH (08:11)
[2020-07-25] MEDS: CHLORHEXIDINE GLUCONATE 15 ML CUP MUCOUS MEM SCH (08:11)
[2020-07-25] MEDS: FAMOTIDINE 20 MG TAB PO SCH (08:11)
[2020-07-25] MEDS: DORZOLAMIDE-TIMOLOL 2.23%/0.68 10ML BTL BOTH EYES SCH (08:12)
[2020-07-25] MEDS ORDERED: SODIUM BICARB 8.4% 50 ML SYR (1 MEQ/ML) IV STA ×3 (08:40→10:22)
[2020-07-25] MEDS: LABETALOL 200 MG TAB PO SCH (09:20)
[2020-07-25] MEDS: lisinopriL 20 MG TAB PO SCH (09:20)
[2020-07-25 09:37] VITALS: TEMP 100
[2020-07-25 10:10] LABS: ABG Base Excess -8.7 mmol/L; ABG HCO3 20 mmol/L (21-25); ABG Oxygen Saturation 91.1 % (94-97); ABG PCO2 57 mmHg (35-45); ABG PO2 63 mmHg (83-108); ABG TCO2 22 mmol/L (19-24); Allen Test Performed? Yes
[2020-07-25 10:11] LABS: ABG PH 7.15 (7.35-7.45)
[2020-07-25 10:17] LABS: Ferritin 1557.1 ng/mL (22.0-322.0)
[2020-07-25] MEDS ORDERED: DEXTROSE 5% IN WATER 1,000 ML with SODIUM BICARB (1 MEQ/ML) 150 ML IV SCH (10:30)
[2020-07-25 12:27] LABS: Glucose,Whole Blood 140 mg/dL (75-99)
[2020-07-25 12:41] VITALS: BP 98/71
[2020-07-25] MEDS: ASCORBIC ACID 500 MG TAB PO SCH (12:53)
[2020-07-25] MEDS: ZINC SULFATE 220 MG CAP PO SCH (12:58)
[2020-07-25] MEDS: CHOLECALCIFEROL 1,000 UNIT TAB PO SCH (12:58)
--- NOTE | 2020-07-25 13:52 | P.PN ---
Subjective Progress Note Date: 07/25/20 Principal diagnosis: Acute hypoxic respiratory failure secondary to covid 19 pneumonitis This is a 80-year-old gentleman with a history of coronary artery disease with previous stent placement, gastroesophageal reflux disease, hyper lipidemia. He presents to the emergency room today with complaints of dizziness, fatigue, weakness. His is finding him quite somnolent. This is been going on for at least 5 days. He had a follow-up with his primary care physician and his glove former who prescribed medication for vertigo. No reported fever. He has had increasing shortness of breath and a dry cough. Chest x-ray reveals evidence of moderate bilateral opacities predominantly in the mid to lower lungs. His presenting oxygen was 74% O2 saturation on room air. Temperature 90.9. He is been placed on 15 L nonrebreather maintaining O2 saturation of 89- 90%. White count 10.2. Hemoglobin 14.6. Lymphocytes 0.7. D-dimer 5.42. Sodium 138. Potassium 4.8. Creatinine 2.23. Lactic acid 2.2. Glucose 150. AST 77, ALT 50. LDH 2236. Troponin 0.128. C-reactive protein 202. ProBNP 1770. Briones virus by PCR positive. He's been initiated on a heparin drip. Resuscitated with 500 ML bolus. Currently on 0.9 normal saline at 130 ML's per hour. Received Decadron. Aspirin. He is seen today in consultation in the emergency room. Currently afebrile. 89% O2 saturation on 15 L nonrebreather. The patient seen today 07/21/2020 in follow-up on the selective care unit. He is currently awake and alert resting fairly comfortably in bed. He remains on 100% nonrebreather mask. He did have issues with atrial fibrillation which was new for the patient. He is currently on a heparin drip. He is also on day 2 of Remdesivir for his CoVID Pneumonia. White count 5.8. Hemoglobin 13.3. Lymphocytes 0.5. Sodium 141. Potassium 4.1. Creatinine 2.03. He remains on dexamethasone, vitamin C, vitamin D, Pepcid, zinc. 0.9 normal saline at 130 ML's per hour. Echocardiogram pending. Reevaluated today on 07/22/20, patient remains in the ICU, admitted on 07/20, presently on Airvo at 60 L/m, FiO2 of 90%, O2 saturation is marginal. IV fluid is at 50 mL per hour, patient received remdesivir and 1 unit of convalescent plasma. Patient developed new onset atrial fibrillation, he is on Eliquis, he is also on Decadron, and his overall pulmonary status is marginal. WBC count is 11.8 hemoglobin is 13 d-dimer is 3.29 lites are normal BUN is 58 creatinine 1.34. LDH is 2065, C-reactive protein is 78.7 Reevaluated today on 07/23/20, patient was noted to be doing poorly today, he has been on BiPAP overnight, 100 percent FiO2, BiPAP with IPAP of 12 and EPAP of 6, patient was noted to have desaturations and has been continuously removing his BiPAP. ABG yesterday on BiPAP showed a pO2 of 53 pCO2 of 28 pH of 7.42. However clinically the patient was noted to be extremely restless, tachypneic, tachycardic this morning, I went ahead and recommended intubation of the patient. Patient was intubated, placed on assist control rate of 20, volume is 500 FiO2 is 100% PEEP is 8. An ABG is pending. Patient has been on full treatment for his Covid 19 pneumonitis. And no major improvement has been noted over the last few days. Chest x-ray continues to show multifocal bilateral infiltrates after intubating the patient, patient had left IJ central line placed, and a left radial arterial line was also placed. Reevaluated today on 07/24/20, patient remains on mechanical ventilation, patient was intubated on 07/22/20, patient is developing ARDS, chest x-ray continues to show diffuse interstitial infiltrates. Patient has very poor ABG in spite of high FiO2 and high PEEP. Today's ABG showed a pO2 of 66 pCO2 of 61 pH of 7.18, hence tidal volume was increased, and the patient received 1 amp of bicarb. Presently he is on the percent FiO2, PEEP was increased to 20, rate increased to 34, and we will attempt to place the patient in the prone position today. Nurses had issues with his endotracheal tube last night, patient had to be reintubated by anesthesia. And the endotracheal tube was changed. Patient remains on propofol at 55 mcg/kg/m, norepinephrine at 0.2 mcg/kg/m, Nimbex at 1.5 mcg/kg/m. IV fluid is at 50 mL per hour. Chest x-ray this morning showed adequate placement of the endotracheal tube, again bilateral infiltrates noted. Nutrition-romero, the patient is on enteral feeding. At Reevaluated today on 07/25/20, remains intubated and mechanically ventilated. Patient continues to do poorly, he is quite hypotensive, requiring significant amount of vasopressin and norepinephrine he is on almost 100 g of norepinephrine, and on vasopressin at 0.03. His ventilator settings were adjusted today, he is on assist control rate of 34, volume control plus of 550, FiO2 100% and I was able to cut it down to 60% he is also on PEEP of 20. ABG showed a pO2 of 245 pCO2 of 69 pH of 7.13, d-dimer is significantly elevated. After evaluating the patient, patient was placed on volume control plus with tidal volume of 550 FiO2 of 60%. Patient received bicarb, I have also recommended a bicarb drip and we'll allow permissive hypercapnia will try to maintain a pH close to 7.25 up to 7.28. Family was made aware of his poor condition, CODE STATUS was changed to DO NOT RESUSCITATE last night. Chest x- ray continues to show evidence of ARDS and bilateral pneumonia. WBC count is 19.3 hemoglobin is 13 BUN is 60 creatinine is 1.75, multiple fluid boluses were given yesterday for low blood pressure and poor urine output. Objective - Vital Signs Vital signs: Vital Signs Temp 100.0 F H 07/25/20 08:00 Pulse 128 H 07/25/20 12:00 Resp 34 H 07/25/20 12:00 BP 98/71 07/25/20 12:00 Pulse Ox 97 07/25/20 12:00 Intake & Output 07/24/20 07/25/20 07/25/20 18:59 06:59 18:59 Intake Total 2710.788 5056.844 2912.795 Output Total 685 550 155 Balance 940.397 5489.844 2757.795 Weight 144.6 kg Intake: IV 994 5185 2568 Dextrose 5% in Water 1, 50 000 ml @ 50 mls/hr IV . Q23H [facility] with Sodium Bicarb (1 Meq/ml) 150 ml Rx#:[id number] Piperacillin-Tazobactam 3 100 100 .375 gm In Sodium Chloride 0.9% 100 ml @ 25 mls/hr IVPB Q8H [facility] Rx#: [id number] Remdesivir (Eua) 100 mg 250 In Sodium Chloride 0.9% 250 ml @ 250 mls/hr IVPB DAILY@1800 [facility] Rx#: [id number] Sodium Chloride 0.9% 1, 600 500 400 000 ml @ 100 mls/hr IV . Q10H [facility] Rx#:[id number] Sodium Chloride 0.9% 1, 999 2000 000 ml @ 999 mls/hr IV . Q1H1M [facility] Rx#:[id number] pressure bag 36 36 18 Intake, IV Titration 689.099 796.844 242.795 Amount Cisatracurium 200 mg In 169.998 Sodium Chloride 0.9% 180 ml @ 1 MCG/KG/MIN 8.364 mls/hr IV .[id number] [facility] Rx #:[id number] Norepinephrine 32 mg In 134.003 306.334 242.795 Sodium Chloride 0.9% 218 ml @ 0.05 MCG/KG/MIN 3. 267 mls/hr IV .Q24H [facility] Rx#:[id number] propofoL 1,000 mg In 385.098 490.510 Empty Bag 1 bag @ Titrate IV .Q0M [facility] Rx#: [id number] Tube Feeding 140 0 72 Other 30 Output: Urine 685 550 155 Other: Voiding Method Indwelling Catheter Indwelling Catheter ABP, PAP, CO, CI - Last Documented Arterial Blood Pressure 98/65 - Exam GENERAL EXAM: 80-year-old , intubated, sedated, and paralyzed. HEAD: Normocephalic. Atraumatic. EENT: PERRLA, EOMI, nonicteric.. No neck masses, no JVD. CHEST: No chest wall deformity. LUNGS: Crackles and rhonchi noted bilaterally. CVS: S1 and S2 normal with no audible murmur, irregular rhythm. ABDOMEN: No hepatosplenomegaly, normal bowel sounds, no guarding or rigidity. SPINE: No scoliosis or deformity SKIN: No rashes CENTRAL NERVOUS SYSTEM: Could not assess, patient is sedated and paralyzed. Psychiatric: Could not assess EXTREMITIES: There is no peripheral edema. No clubbing, no cyanosis. Peripheral pulses are intact. - Labs CBC & Chem 7: 07/25/20 04:00 07/25/20 04:00 Labs: Abnormal Lab Results - Last 24 Hours (Table) 07/22/20 07/24/20 07/24/20 Range/Units 02:47 17:49 22:59 WBC (3.8-10.6) k/uL RBC (4.30-5.90) m/uL Plt Count (150-450) k/uL Neutrophils # (1.3-7.7) k/uL Lymphocytes # (1.0-4.8) k/uL D-Dimer (<0.60) mg/L FEU ABG pH (7.35-7.45) ABG pCO2 (35-45) mmHg ABG pO2 53 L* (83-108) mmHg ABG HCO3 (21-25) mmol/L ABG Total CO2 (19-24) mmol/L ABG O2 Saturation (94-97) % Potassium (3.5-5.1) mmol/L Chloride (98-107) mmol/L BUN (9-20) mg/dL Creatinine (0.66-1.25) mg/dL Glucose (74-99) mg/dL POC Glucose (mg/dL) 181 H 169 H (75-99) mg/dL Calcium (8.4-10.2) mg/dL Ferritin (22.0-322.0) ng/mL Lactate Dehydrogenase (313-618) U/L C-Reactive Protein (<10.0) mg/L Total Protein (6.3-8.2) g/dL Albumin (3.5-5.0) g/dL Procalcitonin (0.02-0.09) ng/mL 07/25/20 07/25/20 07/25/20 Range/Units 04:00 04:00 04:00 WBC 19.3 H (3.8-10.6) k/uL RBC 4.11 L (4.30-5.90) m/uL Plt Count 135 L (150-450) k/uL Neutrophils # 17.9 H (1.3-7.7) k/uL Lymphocytes # 0.3 L (1.0-4.8) k/uL D-Dimer >34.10 H (<0.60) mg/L FEU ABG pH (7.35-7.45) ABG pCO2 (35-45) mmHg ABG pO2 (83-108) mmHg ABG HCO3 (21-25) mmol/L ABG Total CO2 (19-24) mmol/L ABG O2 Saturation (94-97) % Potassium (3.5-5.1) mmol/L Chloride (98-107) mmol/L BUN (9-20) mg/dL Creatinine (0.66-1.25) mg/dL Glucose (74-99) mg/dL POC Glucose (mg/dL) (75-99) mg/dL Calcium (8.4-10.2) mg/dL Ferritin (22.0-322.0) ng/mL Lactate Dehydrogenase (313-618) U/L C-Reactive Protein (<10.0) mg/L Total Protein (6.3-8.2) g/dL Albumin (3.5-5.0) g/dL Procalcitonin 0.24 H (0.02-0.09) ng/mL 07/25/20 07/25/20 07/25/20 Range/Units 04:00 04:48 10:09 WBC (3.8-10.6) k/uL RBC (4.30-5.90) m/uL Plt Count (150-450) k/uL Neutrophils # (1.3-7.7) k/uL Lymphocytes # (1.0-4.8) k/uL D-Dimer (<0.60) mg/L FEU ABG pH 7.13 L* 7.15 L* (7.35-7.45) ABG pCO2 69 H 57 H (35-45) mmHg ABG pO2 245 H 63 L (83-108) mmHg ABG HCO3 20 L (21-25) mmol/L ABG Total CO2 25 H (19-24) mmol/L ABG O2 Saturation 97.3 H 91.1 L (94-97) % Potassium 5.3 H (3.5-5.1) mmol/L Chloride 117 H (98-107) mmol/L BUN 60 H (9-20) mg/dL Creatinine 1.75 H (0.66-1.25) mg/dL Glucose 163 H (74-99) mg/dL POC Glucose (mg/dL) (75-99) mg/dL Calcium 7.6 L (8.4-10.2) mg/dL Ferritin 1557.1 H (22.0-322.0) ng/mL Lactate Dehydrogenase 1959 H (313-618) U/L C-Reactive Protein 218.6 H (<10.0) mg/L Total Protein 5.3 L (6.3-8.2) g/dL Albumin 2.5 L (3.5-5.0) g/dL Procalcitonin (0.02-0.09) ng/mL 07/25/20 Range/Units 12:25 WBC (3.8-10.6) k/uL RBC (4.30-5.90) m/uL Plt Count (150-450) k/uL Neutrophils # (1.3-7.7) k/uL Lymphocytes # (1.0-4.8) k/uL D-Dimer (<0.60) mg/L FEU ABG pH (7.35-7.45) ABG pCO2 (35-45) mmHg ABG pO2 (83-108) mmHg ABG HCO3 (21-25) mmol/L ABG Total CO2 (19-24) mmol/L ABG O2 Saturation (94-97) % Potassium (3.5-5.1) mmol/L Chloride (98-107) mmol/L BUN (9-20) mg/dL Creatinine (0.66-1.25) mg/dL Glucose (74-99) mg/dL POC Glucose (mg/dL) 140 H (75-99) mg/dL Calcium (8.4-10.2) mg/dL Ferritin (22.0-322.0) ng/mL Lactate Dehydrogenase (313-618) U/L C-Reactive Protein (<10.0) mg/L Total Protein (6.3-8.2) g/dL Albumin (3.5-5.0) g/dL Procalcitonin (0.02-0.09) ng/mL Microbiology - Last 24 Hours (Table) 07/23/20 21:03 Gram Stain - Preliminary Sputum Sputum Culture - Preliminary Presumptive Staph aureus 07/20/20 15:46 Blood Culture - Preliminary Blood No Growth after 96 hours Assessment and Plan Assessment: Impression: Acute hypoxic respiratory failure, patient required intubation and mechanical ventilation on 07/23/20, he shouldn't is requiring significantly high FiO2 and high PEEP. Hence we'll consider placing patient in prone position to improve oxygenation. Acute covid 19 pneumonia and ARDS. History of coronary artery disease. Acute kidney injury New-onset atrial fibrillation on, on Eliquis. Hypotension secondary to septic shock. Requiring norepinephrine and vasopressin. Recommendation: Agree with DO NOT RESUSCITATE CODE STATUS. Zosyn was added empirically for potential underlying bacterial pneumonia although felt to be less likely. Continue ventilatory support. Continue hemodynamic support. Continue nutritional support. GI and DVT prophylaxis. Continue high FiO2 and high PEEP, and now we will place the patient in prone position to achieve adequate oxygenation possible. Continue Decadron, melatonin, vitamins and zinc, Patient did receive remdesivir Continue remdesivir Continue GI and DVT prophylaxis. Remains critically ill, and prognosis is extremely poor. Critical care time is over 30 minutes Time with Patient: Greater than 30
[2020-07-25] MEDS ORDERED: ALBUMIN HUMAN 25% 50 ML in EMPTY BAG 1 BAG IVPB SCH (15:00)
[2020-07-25] MEDS ORDERED: LINEZOLID 600 MG in DEXTROSE/WATER 1 300ML.BAG IVPB SCH (15:00)
--- NOTE | 2020-07-25 15:04 | P.PN ---
Subjective Progress Note Date: 07/25/20 HISTORY OF PRESENT ILLNESS This is a 80-year-old male patient of Dr. Cerda with past medical history of coronary artery disease with previous stent placement, hypertension, hyperlipidemia, gastroesophageal reflux disease. Patient complains of shortness of breath, dry cough, increasing fatigue and weakness and dizziness that of an going on for the past 5 days. was also concerned the patient was more somnolent. He had recently seen his primary care and perianesthesia manager for same and was diagnosed with vertigo. Patient has not had any fever. Temperature 90.9, heart rate 72, blood pressure 92/59, pulse ox 74% on room air. Patient was placed on a nonrebreather and that brought his pulse ox up to 90 max at 15 L. WBC 10.2, hemoglobin 14.6, platelet count 278. Lymphopenia at 0.7. D-dimer 5.42. Initial venous blood gas pH 7.52, pCO2 21, bicarb 17. BUN 16 creatinine 2.23, baseline is not known. Blood sugar 150. Initial lactic acid 2.2 with repeat 1.4. Ferritin 1596, total bilirubin 1.5, AST 77, ALT 50, alkaline phosphatase 52, LDH 2236. Troponin 0.128. C-reactive protein 202.3. ProBNP 1770. Pro-calcitonin 0.25. Coronavirus detected. Chest x-ray reveals bilateral infiltrate. EKG atrial fibrillation at a heart rate of 87. Patient was admitted to the cardiac stepdown unit and consult with primary medicine was placed and patient started on Remdesivir, Lovenox, dexamethasone and vitamins. Subsequently consult added for cardiology regarding atrial fibrillation and elevated troponins. 07/22: Patient remains in the intensive care unit but feels that breathing status is improved from yesterday. He is currently on high flow nasal cannula pulse oxing 89%. Patient appears to be comfortable at rest. shank breaker remains atrial fibrillation. Eliquis cost has been checked by case liner $33. He has been afebrile, heart rate 82, blood pressure 103/74. Repeat blood work reveals WBC 11.8, hemoglobin 13. D-dimer 3.29. BUN 58 creatinine 1.34, CO2 18. Ferritin 1825, LDH 2065, C-reactive protein 78.7. Patient is currently on day #3/5 of Remdesivir course. IV heparin has been transitioned eliquis and continued on oral labetalol. 07/23: Patient had confusion this morning. Chest x-ray this morning revealed persistent confluent airspace disease in the periphery and base of the lungs without significant change. Pulse ox in the 80s with 100% BiPAP, respiratory rate 34. Patient was moved to a new room and prepared for intubation. He has been afebrile, heart rate 84, blood pressure 111/77. shank breaker has been atrial fibrillation with rate control. Cardiology has transitioned heparin drip to eliquis and have signed off his case. This morning, Zosyn added to his medications and he is on day 4/ of Remdesivir. 07/24: Patient remains in intensive care unit on mechanical ventilation pulse oxing 86-88% with vent settings of tidal volume 500, FiO2 100, PEEP of 20. Repeat blood work reveals a CBC 18.5. Fibrinogen 192, d-dimer rate of than 34. Potassium 5.3, chloride 115, BUN 53 and creatinine 1.38. Ferritin level [id number], ALT 52, LDH 2366, C-reactive protein 137.7, pro-calcitonin 0.14. Repeat chest x-ray revealed stable portable chest. Perihilar and basilar infiltrates persist. Patient is currently on Nimbex, dexamethasone, norepinephrine, Remdesivir day #5/, Zosyn. Patient's will be contacted later and provided update via phone. 07/25: Patient remains in ICU, still not progressing, still showing ARDS and hypoxemia, and septic shock. He has been on Levophed, we will discontinue danika nopril, discontinue labetalol, secondary to low pressures, metoprolol IV 2.5 mg every 6 hours heart rate in the 140s, patient on vasopressin, start albumin 25 mg every 6 hours 8 doses REVIEW OF SYSTEMS Unable to obtain due to intubation Objective - Vital Signs Vital signs: Vital Signs Temp 100.0 F H 07/25/20 08:00 Pulse 131 H 07/25/20 09:00 Resp 34 H 07/25/20 09:00 BP 92/49 07/23/20 18:30 Pulse Ox 96 07/25/20 09:00 Intake & Output 07/24/20 07/25/20 07/25/20 18:59 06:59 18:59 Intake Total 0345.212 5396.844 1501.795 Output Total 685 550 75 Balance 387.659 3493.844 1426.795 Weight 144.6 kg Intake: IV 636 1885 1259 Piperacillin-Tazobactam 3 100 100 .375 gm In Sodium Chloride 0.9% 100 ml @ 25 mls/hr IVPB Q8H [facility] Rx#: [id number] Remdesivir (Eua) 100 mg 250 In Sodium Chloride 0.9% 250 ml @ 250 mls/hr IVPB DAILY@1800 [facility] Rx#: [id number] Sodium Chloride 0.9% 1, 600 500 150 000 ml @ 100 mls/hr IV . Q10H [facility] Rx#:[id number] Sodium Chloride 0.9% 1, 999 1000 000 ml @ 999 mls/hr IV . Q1H1M [facility] Rx#:[id number] pressure bag 36 36 9 Intake, IV Titration 689.099 796.844 242.795 Amount Cisatracurium 200 mg In 169.998 Sodium Chloride 0.9% 180 ml @ 1 MCG/KG/MIN 8.364 mls/hr IV .[id number] [facility] Rx #:[id number] Norepinephrine 32 mg In 134.003 306.334 242.795 Sodium Chloride 0.9% 218 ml @ 0.05 MCG/KG/MIN 3. 267 mls/hr IV .Q24H [facility] Rx#:[id number] propofoL 1,000 mg In 385.098 490.510 Empty Bag 1 bag @ Titrate IV .Q0M [facility] Rx#: [id number] Tube Feeding 140 0 0 Output: Urine 685 550 75 Other: Voiding Method Indwelling Catheter Indwelling Catheter ABP, PAP, CO, CI - Last Documented Arterial Blood Pressure 84/60 - Exam Intubated - Respiratory Respiratory: right: diminished, dullness - Cardiovascular Heart rate: 140 Rhythm: regular - Gastrointestinal General gastrointestinal: Present: normal bowel sounds, soft - Psychiatric Psychiatric Comment(s): Sedated on vent - Labs CBC & Chem 7: 07/25/20 04:00 07/25/20 04:00 Labs: Abnormal Lab Results - Last 24 Hours (Table) 07/22/20 07/24/20 07/24/20 Range/Units 02:47 12:09 17:49 WBC (3.8-10.6) k/uL RBC (4.30-5.90) m/uL Plt Count (150-450) k/uL Neutrophils # (1.3-7.7) k/uL Lymphocytes # (1.0-4.8) k/uL D-Dimer (<0.60) mg/L FEU ABG pH (7.35-7.45) ABG pCO2 (35-45) mmHg ABG pO2 53 L* (83-108) mmHg ABG HCO3 (21-25) mmol/L ABG Total CO2 (19-24) mmol/L ABG O2 Saturation (94-97) % Potassium (3.5-5.1) mmol/L Chloride (98-107) mmol/L BUN (9-20) mg/dL Creatinine (0.66-1.25) mg/dL Glucose (74-99) mg/dL POC Glucose (mg/dL) 155 H 181 H (75-99) mg/dL Calcium (8.4-10.2) mg/dL Ferritin (22.0-322.0) ng/mL Lactate Dehydrogenase (313-618) U/L C-Reactive Protein (<10.0) mg/L Total Protein (6.3-8.2) g/dL Albumin (3.5-5.0) g/dL Procalcitonin (0.02-0.09) ng/mL 07/24/20 07/25/20 07/25/20 Range/Units 22:59 04:00 04:00 WBC (3.8-10.6) k/uL RBC (4.30-5.90) m/uL Plt Count (150-450) k/uL Neutrophils # (1.3-7.7) k/uL Lymphocytes # (1.0-4.8) k/uL D-Dimer >34.10 H (<0.60) mg/L FEU ABG pH (7.35-7.45) ABG pCO2 (35-45) mmHg ABG pO2 (83-108) mmHg ABG HCO3 (21-25) mmol/L ABG Total CO2 (19-24) mmol/L ABG O2 Saturation (94-97) % Potassium (3.5-5.1) mmol/L Chloride (98-107) mmol/L BUN (9-20) mg/dL Creatinine (0.66-1.25) mg/dL Glucose (74-99) mg/dL POC Glucose (mg/dL) 169 H (75-99) mg/dL Calcium (8.4-10.2) mg/dL Ferritin (22.0-322.0) ng/mL Lactate Dehydrogenase (313-618) U/L C-Reactive Protein (<10.0) mg/L Total Protein (6.3-8.2) g/dL Albumin (3.5-5.0) g/dL Procalcitonin 0.24 H (0.02-0.09) ng/mL 07/25/20 07/25/20 07/25/20 Range/Units 04:00 04:00 04:48 WBC 19.3 H (3.8-10.6) k/uL RBC 4.11 L (4.30-5.90) m/uL Plt Count 135 L (150-450) k/uL Neutrophils # 17.9 H (1.3-7.7) k/uL Lymphocytes # 0.3 L (1.0-4.8) k/uL D-Dimer (<0.60) mg/L FEU ABG pH 7.13 L* (7.35-7.45) ABG pCO2 69 H (35-45) mmHg ABG pO2 245 H (83-108) mmHg ABG HCO3 (21-25) mmol/L ABG Total CO2 25 H (19-24) mmol/L ABG O2 Saturation 97.3 H (94-97) % Potassium 5.3 H (3.5-5.1) mmol/L Chloride 117 H (98-107) mmol/L BUN 60 H (9-20) mg/dL Creatinine 1.75 H (0.66-1.25) mg/dL Glucose 163 H (74-99) mg/dL POC Glucose (mg/dL) (75-99) mg/dL Calcium 7.6 L (8.4-10.2) mg/dL Ferritin 1557.1 H (22.0-322.0) ng/mL Lactate Dehydrogenase 1959 H (313-618) U/L C-Reactive Protein 218.6 H (<10.0) mg/L Total Protein 5.3 L (6.3-8.2) g/dL Albumin 2.5 L (3.5-5.0) g/dL Procalcitonin (0.02-0.09) ng/mL 07/25/20 Range/Units 10:09 WBC (3.8-10.6) k/uL RBC (4.30-5.90) m/uL Plt Count (150-450) k/uL Neutrophils # (1.3-7.7) k/uL Lymphocytes # (1.0-4.8) k/uL D-Dimer (<0.60) mg/L FEU ABG pH 7.15 L* (7.35-7.45) ABG pCO2 57 H (35-45) mmHg ABG pO2 63 L (83-108) mmHg ABG HCO3 20 L (21-25) mmol/L ABG Total CO2 (19-24) mmol/L ABG O2 Saturation 91.1 L (94-97) % Potassium (3.5-5.1) mmol/L Chloride (98-107) mmol/L BUN (9-20) mg/dL Creatinine (0.66-1.25) mg/dL Glucose (74-99) mg/dL POC Glucose (mg/dL) (75-99) mg/dL Calcium (8.4-10.2) mg/dL Ferritin (22.0-322.0) ng/mL Lactate Dehydrogenase (313-618) U/L C-Reactive Protein (<10.0) mg/L Total Protein (6.3-8.2) g/dL Albumin (3.5-5.0) g/dL Procalcitonin (0.02-0.09) ng/mL Microbiology - Last 24 Hours (Table) 07/20/20 15:46 Blood Culture - Preliminary Blood No Growth after 96 hours 07/23/20 21:03 Gram Stain - Preliminary Sputum Sputum Culture - Preliminary Assessment and Plan Plan: ASSESSMENT AND PLAN 1. Acute hypoxic respiratory failure secondary to Covid 19 pneumonia, requiring intubation and mechanical ventilation. Pulmonary consult appreciated. 2. Septic shock Metabolic encephalopathy secondary to Covid 19 pneumonia. Continue treatment for Covid 19 pneumonia. On lisinopril lead, completed 7 days severe, currently on dexamethasone 6 mg daily 3. Acute COVID-19 pneumonia. Continue Remdesivir day 01/01, dexamethasone 6 mg daily, vitamin supplements: Vitamin D, vitamin C, zinc, prone positioning. 4. New onset atrial fibrillation, rate controlled. Patient is currently on labetalol 200 mg twice daily, cardiology consult appreciated, continue eliquis. 5. Elevated troponin most likely secondary to Covid 19, ruled out non-ST elevated myocardial infarction. Cardiology consult appreciated. 6. Acute kidney injury. Baseline renal function is unknown. Continue fluids and recheck creatinine in the morning. 7. Lactic acidosis secondary to Covid 19, resolved. 8. History of coronary artery disease with previous stent in 2010. 9. Gastroesophageal reflux disease and GI prophylaxis. Pepcid. 10. Hyperlipidemia. Continue atorvastatin 10 mg at bedtime 11. Hypertension with septic shock. His continue labetalol 200 mg twice daily, - patient is currently hypotensive on levo fed. Start albumin infusion 12. Benign prostatic hypertrophy. Continue Proscar 5 mg daily. 13. DVT prophylaxis. Eliquis. 14. Protein calorie malnutrition, feedings, NG tube, at goal, to be provided albumin, 25 mg every 6 hours 8 doses CODE STATUS: Full code Prognosis guarded DISCHARGE PLAN To be determined.
[2020-07-25] MEDS: FINASTERIDE 5 MG TAB PO SCH (15:09)
[2020-07-25] MEDS ORDERED: MORPHINE SULFATE 2 MG/ML SYRINGE IV PRN (15:25)
[2020-07-25] MEDS ORDERED: METOPROLOL TARTRATE 5 MG/5 ML VIAL IVP SCH (16:00)
[2020-07-25 16:32] VITALS: PULSE 0; RESP 0
--- NOTE | 2020-07-29 07:45 | P.DS ---
Providers Date of admission: 07/20/20 17:02 Expected date of discharge: 07/25/20 Attending physician: Virginia Mcdowell Consults: 07/20/20 17:03 Consult Physician Urgent Consulting Provider: Tamera Lagunas Consult Reason/Comments: COVID Do you want consulting provider notified?: Already Contacted 07/20/20 21:08 Consult Physician Routine Consulting Provider: Cassia López Consult Reason/Comments: Covid+; bilat pneumonia Do you want consulting provider notified?: Yes 07/21/20 11:19 Consult Physician Routine Consulting Provider: Frances Walker Consult Reason/Comments: chronic afib no anticoag, elevated trop, +covid Do you want consulting provider notified?: Yes 07/22/20 09:26 Consult Physician Urgent Consulting Provider: Wagner Caal Consult Reason/Comments: Urinary schinctor stricture, Hanson placement Do you want consulting provider notified?: Yes Primary care physician: Vangie Prashant [facility] Course: HISTORY OF PRESENT ILLNESS This is a 80-year-old male patient of Dr. Cerda with past medical history of coronary artery disease with previous stent placement, hypertension, hyperlipidemia, gastroesophageal reflux disease. Patient complains of shortness of breath, dry cough, increasing fatigue and weakness and dizziness that of an going on for the past 5 days. was also concerned the patient was more somnolent. He had recently seen his primary care and warp spooler for same and was diagnosed with vertigo. Patient has not had any fever. Temperature 90.9, heart rate 72, blood pressure 92/59, pulse ox 74% on room air. Patient was placed on a nonrebreather and that brought his pulse ox up to 90 max at 15 L. WBC 10.2, hemoglobin 14.6, platelet count 278. Lymphopenia at 0.7. D-dimer 5.42. Initial venous blood gas pH 7.52, pCO2 21, bicarb 17. BUN 16 creatinine 2.23, baseline is not known. Blood sugar 150. Initial lactic acid 2.2 with repeat 1.4. Ferritin 1596, total bilirubin 1.5, AST 77, ALT 50, alkaline phosphatase 52, LDH 2236. Troponin 0.128. C-reactive protein 202.3. ProBNP 1770. Pro-calcitonin 0.25. Coronavirus detected. Chest x-ray reveals bilateral infiltrate. EKG atrial fibrillation at a heart rate of 87. Patient was admitted to the cardiac stepdown unit and consult with primary medicine was placed and patient started on Remdesivir, Lovenox, dexamethasone and vitamins. Subsequently consult added for cardiology regarding atrial fibrillation and elevated troponins. 07/22: Patient remains in the intensive care unit but feels that breathing status is improved from yesterday. He is currently on high flow nasal cannula pulse oxing 89%. Patient appears to be comfortable at rest. phototypesetting equipment monitor remains atrial fibrillation. Eliquis cost has been checked by case finishing machine adjuster $33. He has been afebrile, heart rate 82, blood pressure 103/74. Repeat blood work reveals WBC 11.8, hemoglobin 13. D-dimer 3.29. BUN 58 creatinine 1.34, CO2 18. Ferritin 1825, LDH 2065, C-reactive protein 78.7. Patient is currently on day #3/5 of Remdesivir course. IV heparin has been transitioned eliquis and continued on oral labetalol. 07/23: Patient had confusion this morning. Chest x-ray this morning revealed persistent confluent airspace disease in the periphery and base of the lungs without significant change. Pulse ox in the 80s with 100% BiPAP, respiratory rate 34. Patient was moved to a new room and prepared for intubation. He has been afebrile, heart rate 84, blood pressure 111/77. phototypesetting equipment monitor has been atrial fibrillation with rate control. Cardiology has transitioned heparin drip to eliquis and have signed off his case. This morning, Zosyn added to his medications and he is on day 4/5 of Remdesivir. 07/24: Patient remains in intensive care unit on mechanical ventilation pulse oxing 86-88% with vent settings of tidal volume 500, FiO2 100, PEEP of 20. Repeat blood work reveals a CBC 18.5. Fibrinogen 192, d-dimer rate of than 34. Potassium 5.3, chloride 115, BUN 53 and creatinine 1.38. Ferritin level [id number], ALT 52, LDH 2366, C-reactive protein 137.7, pro-calcitonin 0.14. Repeat chest x-ray revealed stable portable chest. Perihilar and basilar infiltrates persist. Patient is currently on Nimbex, dexamethasone, norepinephrine, Remdesivir day #5/5, Zosyn. Patient's will be contacted later and provided update via phone. 07/25: Patient remains in ICU, still not progressing, still showing ARDS and hypoxemia, and septic shock. He has been on Levophed, we will discontinue lisinopril, discontinue labetalol, secondary to low pressures, metoprolol IV 2.5 mg every 6 hours heart rate in the 140s, patient on vasopressin, start albumin 25 mg every 6 hours 8 doses Family chose to make patient comfort care only and aggressive treatment was withdrawn. Patient on the afternoon of July 25. Please see nursing documentation for details. DISCHARGE DIAGNOSES 1. Acute hypoxic respiratory failure secondary to Covid 19 pneumonia, requiring intubation and mechanical ventilation. 2. Septic shock and metabolic encephalopathy secondary to Covid 19 pneumonia. 3. Acute COVID-19 pneumonia. 4. New onset atrial fibrillation, rate controlled, paroxysmal atrial fibrillation. 5. Elevated troponin secondary to Covid 19, ruled out non-ST elevated myocardial infarction. 6. Acute kidney injury. 7. Lactic acidosis secondary to Covid 19. 8. History of coronary artery disease with previous stent in 2010. 9. Gastroesophageal reflux disease. 10. Hyperlipidemia. 11. Hypotension with septic shock. 12. Benign prostatic hypertrophy. 13. Severe protein calorie malnutrition. Impression and plan of care have been directed as dictated by the signing physic ian. Nichelle Dsouza nurse practitioner acting as scribe for signing physician. Patient Condition at Discharge: Undetermined Plan - Discharge Summary Discharge Rx Participant: Yes New Discharge Prescriptions: New Apixaban [Eliquis] 5 mg PO BID #60 tab No Action amLODIPine [Norvasc] 10 mg PO DAILY Aspirin EC [Ecotrin] 325 mg PO DAILY Dorzolamide/Timolol/Pf [Dorzolamide 2%-Timolol 0.5%] 1 drop BOTH EYES BID Finasteride [Proscar] 5 mg PO DAILY Krill Oil 500 mg PO DAILY Labetalol [Trandate] 200 mg PO BID Latanoprost [Xalatan 0.005%] 1 drop BOTH EYES HS lisinopriL 20 mg PO BID Nitroglycerin Sl Tabs [Nitrostat] 0.4 mg SL Q5M PRN PRN Reason: Chest Pain Omeprazole 20 mg PO DAILY Simvastatin [Zocor] 20 mg PO HS Triamterene-Hctz 37.5-25Mg [Dyazide 37.5-25 Capsule] 1 cap PO DAILY Discharge Medication List Aspirin EC [Ecotrin] 325 mg PO DAILY 07/20/20 [History] Dorzolamide/Timolol/Pf [Dorzolamide 2%-Timolol 0.5%] 1 drop BOTH EYES BID 07/20/20 [History] Finasteride [Proscar] 5 mg PO DAILY 07/20/20 [History] Krill Oil 500 mg PO DAILY 07/20/20 [History] Labetalol [Trandate] 200 mg PO BID 07/20/20 [History] Latanoprost [Xalatan 0.005%] 1 drop BOTH EYES HS 07/20/20 [History] Nitroglycerin Sl Tabs [Nitrostat] 0.4 mg SL Q5M PRN 07/20/20 [History] Omeprazole 20 mg PO DAILY 07/20/20 [History] Simvastatin [Zocor] 20 mg PO HS 07/20/20 [History] Triamterene-Hctz 37.5-25Mg [Dyazide 37.5-25 Capsule] 1 cap PO DAILY 07/20/20 [History] amLODIPine [Norvasc] 10 mg PO DAILY 07/20/20 [History] lisinopriL 20 mg PO BID 07/20/20 [History] Apixaban [Eliquis] 5 mg PO BID #60 tab 07/22/20 [Rx] Follow up Appointment(s)/Referral(s): Vangie Cerda MD [Primary Care Provider] - 1-2 days Trinity Oropeza MD [Family Provider] - 2 Weeks Discharge Disposition: - Preliminary Cause of Preliminary Cause of : Acute COVID-19 pneumonia.
--- NOTE | 2020-08-01 10:23 | CDI ---
Documentation Clarification Form Date: 08/01/2020 10:09:45 AM From: Chanelle YoungbloodSamsonDAVON walker, CCDS Admit Date: 07/20/2020 05:02:00 PM Patient Name: Lewis Ortiz Visit Number: [id number] Discharge Date: 07/25/2020 06:12:00 PM ATTENTION: The Clinical Documentation Specialists (CDI) and [facility] Coding Staff appreciate your assistance in clarifying documentation. Please respond to the clarification below the line at the bottom and electronically sign. The CDI & [facility] Coding staff will review the response and follow-up if needed. Please note: Queries are made part of the Legal Health Record. If you have any questions, please contact the author of this message via ITS. Dr. Murphy Carreon: Septic Shock is documented in the Discharge Summary without further specificity and documentation of Sepsis or if Present on Admission. Patient History/Risk Factors: CAD w/previous stent, Hypertension, Hyperlipidemia, GERD, BPH, Non-smoker. Clinical Indicators: Presented to the ED on 07/20 with Dizziness & lethargy, worsening dyspnea & dry cough, no fever. Troponins elevated in ED. Diagnosed with COVID 19 Pneumonia, Metabolic Encephalopathy, Acute Hypoxemic Respiratory Failure, New onset Paroxysmal Atrial Fibrillation, ANGELA, Lactic Acidosis and Type II Myocardial Infarction. The patient on 07/25. 07/20 VS: T 99.0, P 72 - 101^, R 24, BP 92/59, PO 74 RA - 88 15L nrb LAB: WBC (10.2), Neut 8.8^, Lymph 0.7*, D Dimer 5.42^, BUN 60^, Cr 2.23^, Lactic Acid 2.2^^; VBG: pH 7.52^, pCO2 21*, HCO3 17* 07/20 COVID POSITIVE 07/20 Blood Culture: negative (final @ 144 hrs) 07/23 Sputum Culture: (final: Staphlyococcus aureus) EKG Results: R 87 Atrial fibrillation, possible inferior infarct, age undetermined. Treatment 07/20: IV Heparin drip, IV fluid 500 mls @ 999 mls/hr q31m, IV Remdisivir, IV Decadron, po ASA, O2 15L nrb. 07/21: Vitamins C & D3 & Orazinc. 07/23: IV Nimbex, IV Propofol, IV Levophed, IV NaBicarb, IV fluid 1,000 mls @ 999 mls/hr q1H1M, BiPAP, Intubated & put on vent. In your professional opinion, please clarify if these findings signify one of the following conditions, whether the condition is POA, and cause, if known: Sepsis o With: xx Severe Sepsis Septic Shock xx Other, please specify __COVID 19 Unable to determine o Present on Admission: Yes or No o Identify the (suspected) organism o Link or clarify if there is associated (due to/with): Organ failure Shock (Last Revision: November 2017) MTDD
== END 2020-07-25 18:12 | disposition expired | DRG 871 ==
LOC: EC 15:13 → 3SCARD 17:02 → 2SICU 07-22 03:44
PROVIDERS: ADMIT Internal Medicine; ATTEND Internal Medicine
PROC: 0T7D7ZZ Dilation of Urethra, Via Natural or Artificial Opening (ICD-10-PCS; 2020-07-22)
PROC: 5A1945Z Respiratory Ventilation, 24-96 Consecutive Hours (ICD-10-PCS; principal; 2020-07-23)
PROC: 5A09357 Assistance with Respiratory Ventilation, Less than 24 Consecutive Hours, Continuous Positive Airway Pressure (ICD-10-PCS; principal; 2020-07-23)
PROC: 0BH17EZ Insertion of Endotracheal Airway into Trachea, Via Natural or Artificial Opening (ICD-10-PCS; principal; 2020-07-23)
PROC: XW033E5 Introduction of Remdesivir Anti-infective into Peripheral Vein, Percutaneous Approach, New Technology Group 5 (ICD-10-PCS; 2020-07-23)
PROC: XW13325 Transfusion of Convalescent Plasma (Nonautologous) into Peripheral Vein, Percutaneous Approach, New Technology Group 5 (ICD-10-PCS; 2020-07-23)
PROC: 02HV33Z Insertion of Infusion Device into Superior Vena Cava, Percutaneous Approach (ICD-10-PCS; 2020-07-23)
PROC: 03HY32Z Insertion of Monitoring Device into Upper Artery, Percutaneous Approach (ICD-10-PCS; 2020-07-23)
PROC: 3E033XZ Introduction of Vasopressor into Peripheral Vein, Percutaneous Approach (ICD-10-PCS; 2020-07-23)
PROC: 0DH67UZ Insertion of Feeding Device into Stomach, Via Natural or Artificial Opening (ICD-10-PCS; 2020-07-23)
DX: A41.89 Other specified sepsis (principal); U07.1 COVID-19; G93.41 Metabolic encephalopathy; J12.89 Other viral pneumonia; J80 Acute respiratory distress syndrome; I21.A1 Myocardial infarction type 2; E43 Unspecified severe protein-calorie malnutrition; R65.21 Severe sepsis with septic shock; E87.2 Acidosis; N17.9 Acute kidney failure, unspecified; I34.0 Nonrheumatic mitral (valve) insufficiency; E78.5 Hyperlipidemia, unspecified; Z66 Do not resuscitate; I10 Essential (primary) hypertension; I25.10 Atherosclerotic heart disease of native coronary artery without angina pectoris; I48.0 Paroxysmal atrial fibrillation; K21.9 Gastro-esophageal reflux disease without esophagitis; N40.0 Benign prostatic hyperplasia without lower urinary tract symptoms; D72.810 Lymphocytopenia; Z90.49 Acquired absence of other specified parts of digestive tract; Z95.5 Presence of coronary angioplasty implant and graft; Z79.82 Long term (current) use of aspirin; Z79.01 Long term (current) use of anticoagulants; Z79.899 Other long term (current) drug therapy; Z68.39 Body mass index [BMI] 39.0-39.9, adult
CPT/HCPCS: 36415; 36600; 71045; 80053; 82550; 82553; 82728; 82803; 82805; 83605; 83615; 83735; 83880; 84132; 84145; 84484; 85025; 85379; 85384; 85610; 85730; 86140; 86850; 86900; 86901; 87040; 87070; 87077; 87186; 87205; 87502; 87635; 93005; 93306; 94002; 94003; 94660; 96365; 96366; 96375; 96376; 99291